=== PATIENT | male | born 1955 | race Caucasian/White ===

== ENCOUNTER 2021-02-03 10:54 | Inpatient (IN) ==
--- NOTE | 2021-02-03 11:26 | Emergency Department Note ---
Impression & Plan GIB (gastrointestinal bleeding), Symptomatic anemia, DVT (deep venous thrombosis), MATIAS (dyspnea on exertion) ED Provider Note NAME: HARLEY GIFFORD AGE: 65 SEX: M : 1955 ARRIVES VIA: Walk-In INFORMANT: Patient, ED PROVIDER(S): Chintan Marrero MD Chief Complaint: Shortness of breath, right lower extremity swelling HPI: Patient states he has had the above symptoms ongoing since the beginning of January around the same time that he had traveled via plane to [place]. The patient states that his shortness of breath is exertional in nature and gotten progressively worse. Patient denies any known heart or lung history. The patient denies any chest pains. The patient was thought to have a presumptive muscle strain and started on naproxen. This has not really abated his symptoms. The patient denies any orthopnea. Patient denies any fevers or chills. He is vaccinated for Covid. The patient has had a slight productive cough but it is clear in nature. No history of smoking. ROS: See HPI for pertinent positives and negatives. A total of 10 systems were reviewed and otherwise negative. Past medical history: See below Surgical history: See below Social history: See below Physical Exam: GENERAL: Wearing glasses and a mask. NAD, non-toxic. EYE EXAM: Normal conjunctiva. PERRL, no anisocoria and EOM's grossly intact w/o pain. NECK: Supple, no nuchal rigidity, no adenopathy, non-tender. No signs of meningismus. LUNGS: Clear to auscultation. Normal chest wall mechanics. HEART: NSR, no MRG. ABDOMEN: Abdomen soft, non-tender, normo-active bowel sounds, no masses, no rebound or guarding. BACK: No CVA TTP. SKIN: No rashes and no bruising. UPPER EXTREMITIES: Upper extremities are grossly normal. LOWER EXTREMITIES: Grossly normal, no obvious asymmetry or edema, no erythema, negative Homans' sign bilaterally. NEURO EXAM: A&O x3, cranial nerves II-XII grossly intact, normal speech, moves all 4 extremities on command w/o issue. Differential diagnoses: Reactive airway disease, pneumonia, pneumothorax, COPD, CHF, infections, cardiac ischemia, pulmonary embolism, musculoskeletal, gastrointestinal, as well as other pathologies. Course: Patient was seen and evaluated the bedside. Full history physical exam was performed. EKG interpreted by me Normal sinus rhythm, rate of 77, wide QRS, right bundle branch block pattern. No prior EKGs for comparison. Imaging Studies: See below Cardiac monitoring: An order was placed for continuous cardiac monitoring. The monitor shows a rate of 74 with sinus rhythm. MDM: Patient does present with concern for shortness of breath. Blood work is obtained along with a an ultrasound of the right lower extremity associated CT angiography of the chest. Patient was noted to have a low hemoglobin which is likely the cause of the patient's shortness of breath. DVT ultrasound was positive. I did speak with Dr. Palm with hematology who stated that clear the patient does need transfused and that a filter is an option but would consider how the patient's anemia improved after transfusion along with GI consultation given the patient's likely upper GI bleed potentially associated to naproxen use. Patient had denied any dark tarry stools or bright red blood per rectum. Patient denies any abdominal pain. Patient CT angiography was negative for PE but the patient does have pulmonary nodules. Patient is a non-smoker. Dr. Palm had suggested that if the patient does require more than 2 units PRBCs to ensure that FFP be given as well. I did speak with the on-call hospitalist and a striking gas and the patient was admitted to the [facility] service by Dr. Martinez. Patient also had already been started on PPI bolus and drip at the time that the patient had been noted to be anemic. The patient has also been consented for blood. Critical Care: I have personally spent 77 minutes of critical care time in direct management of this patient. This includes bedside care, interpretation of diagnostic studies, and testing, discussion with consultants, patient, and family members, and other require inpatient management activities. This 77 minutes is in excess of all separately billable procedures. Past Med/Surg History Medical History GERD (gastroesophageal reflux disease) HLD (hyperlipidemia) Surgical History H/O hemorrhoidectomy History of colonoscopy History of esophagogastroduodenoscopy (EGD) History of inguinal hernia repair Family History (Updated 02/03/21 @ 15:44 by Veronique Gibbs PA-C) Father Coronary heart disease Social History (Updated 02/03/21 @ 15:44 by Veronique Gibbs PA-C) Smoking Status: Never smoker Second Hand Exposure: No; Do You Dip or Chew Tobacco: No; Tobacco Cessation Education Requested by Patient: No Hx Alcohol Use: Yes Alcohol type: beer Alcohol Intake Frequency: 2-4 x/Month Hx Substance Use: No Preferred Language: Hong Konger Communication Ability: Effective Egg Packer Required: No Beliefs That Will Affect Care: None Current Living Situation: Spouse Other Information That Helps Us Care for You: No Feels Safe at Home: Yes Safety Concerns: Feels Safe At This Time Assistive Devices: Glasses Allergies Allergies Allergy/AdvReac Type Severity Reaction Status Date / Time No Known Drug Allergies Allergy Unknown NKDA Verified 02/03/21 13:37 Home Meds Home Medications Medication Instructions Recorded Confirmed naproxen 500 mg PO BID 02/03/21 02/03/21 rosuvastatin 5 mg PO QPM 02/03/21 02/03/21 Results & Data (ED) Vital Signs Vital Signs - 24 hr 02/03/21 11:07 02/03/21 11:35 02/03/21 11:41 Temperature 36.8 C Temperature Source Temporal Artery Scan Pulse Rate 86 73 77 Pulse Rate [Right Finger] Pulse Rate from SpO2 Sensor 77 Pulse Rhythm Regular Respiratory Rate 18 20 17 Respiratory Effort / Characteristics Short of Breath Blood Pressure 131/74 114/75 Blood Pressure [Right Arm] Blood Pressure Mean 93 88 Blood Pressure Mean [Right Arm] Blood Pressure Position Sitting Pulse Oximetry 100 99 99 Oxygen Delivery Method Room Air Room Air Sepsis Recent Fever Within 48 Hours No Sepsis New/Unexplained Change in Mental Status N/A Sepsis Action Taken by Nursing No Action Required 02/03/21 11:44 02/03/21 11:50 02/03/21 12:00 Temperature Temperature Source Pulse Rate 73 72 Pulse Rate [Right Finger] Pulse Rate from SpO2 Sensor 73 Pulse Rhythm Respiratory Rate 18 Respiratory Effort / Characteristics Spontaneous Blood Pressure Blood Pressure [Right Arm] Blood Pressure Mean Blood Pressure Mean [Right Arm] Blood Pressure Position Pulse Oximetry 99 100 Oxygen Delivery Method Room Air Sepsis Recent Fever Within 48 Hours Sepsis New/Unexplained Change in Mental Status Sepsis Action Taken by Nursing 02/03/21 12:51 02/03/21 13:00 02/03/21 13:01 Temperature Temperature Source Pulse Rate 77 76 78 Pulse Rate [Right Finger] Pulse Rate from SpO2 Sensor 78 80 77 Pulse Rhythm Respiratory Rate 17 22 20 Respiratory Effort / Characteristics Blood Pressure 120/85 Blood Pressure [Right Arm] Blood Pressure Mean 96 Blood Pressure Mean [Right Arm] Blood Pressure Position Pulse Oximetry 100 99 99 Oxygen Delivery Method Sepsis Recent Fever Within 48 Hours Sepsis New/Unexplained Change in Mental Status Sepsis Action Taken by Nursing 02/03/21 13:32 02/03/21 13:45 02/03/21 13:46 Temperature Temperature Source Pulse Rate 76 77 Pulse Rate [Right Finger] Pulse Rate from SpO2 Sensor 78 77 78 Pulse Rhythm Respiratory Rate 21 18 Respiratory Effort / Characteristics Blood Pressure 118/71 Blood Pressure [Right Arm] Blood Pressure Mean 86 Blood Pressure Mean [Right Arm] Blood Pressure Position Pulse Oximetry 99 100 99 Oxygen Delivery Method Sepsis Recent Fever Within 48 Hours Sepsis New/Unexplained Change in Mental Status Sepsis Action Taken by Nursing 02/03/21 13:50 02/03/21 13:55 02/03/21 14:00 Temperature Temperature Source Pulse Rate 74 83 77 Pulse Rate [Right Finger] Pulse Rate from SpO2 Sensor 77 81 75 Pulse Rhythm Respiratory Rate 14 16 21 Respiratory Effort / Characteristics Blood Pressure 126/71 Blood Pressure [Right Arm] Blood Pressure Mean 89 Blood Pressure Mean [Right Arm] Blood Pressure Position Pulse Oximetry 100 100 99 Oxygen Delivery Method Sepsis Recent Fever Within 48 Hours Sepsis New/Unexplained Change in Mental Status Sepsis Action Taken by Nursing 02/03/21 14:01 02/03/21 14:05 02/03/21 14:10 Temperature Temperature Source Pulse Rate 75 79 81 Pulse Rate [Right Finger] Pulse Rate from SpO2 Sensor 75 80 79 Pulse Rhythm Respiratory Rate 20 20 19 Respiratory Effort / Characteristics Blood Pressure Blood Pressure [Right Arm] Blood Pressure Mean Blood Pressure Mean [Right Arm] Blood Pressure Position Pulse Oximetry 100 100 100 Oxygen Delivery Method Sepsis Recent Fever Within 48 Hours Sepsis New/Unexplained Change in Mental Status Sepsis Action Taken by Nursing 02/03/21 14:15 02/03/21 14:20 02/03/21 14:21 Temperature Temperature Source Pulse Rate 75 78 77 Pulse Rate [Right Finger] Pulse Rate from SpO2 Sensor 76 77 78 Pulse Rhythm Respiratory Rate 19 21 18 Respiratory Effort / Characteristics Blood Pressure 131/79 Blood Pressure [Right Arm] Blood Pressure Mean 96 Blood Pressure Mean [Right Arm] Blood Pressure Position Pulse Oximetry 100 99 99 Oxygen Delivery Method Sepsis Recent Fever Within 48 Hours Sepsis New/Unexplained Change in Mental Status Sepsis Action Taken by Nursing 02/03/21 14:24 02/03/21 14:25 02/03/21 14:30 Temperature 36.7 C Temperature Source Oral Pulse Rate 75 76 75 Pulse Rate [Right Finger] Pulse Rate from SpO2 Sensor 78 77 Pulse Rhythm Respiratory Rate 16 20 16 Respiratory Effort / Characteristics Blood Pressure 131/79 118/74 Blood Pressure [Right Arm] Blood Pressure Mean 96 88 Blood Pressure Mean [Right Arm] Blood Pressure Position Pulse Oximetry 99 99 99 Oxygen Delivery Method Sepsis Recent Fever Within 48 Hours Sepsis New/Unexplained Change in Mental Status Sepsis Action Taken by Nursing 02/03/21 14:31 02/03/21 14:35 02/03/21 14:39 Temperature 36.7 C Temperature Source Oral Pulse Rate 77 76 Pulse Rate [Right Finger] 82 Pulse Rate from SpO2 Sensor 76 77 Pulse Rhythm Respiratory Rate 16 14 16 Respiratory Effort / Characteristics Blood Pressure 125/77 Blood Pressure [Right Arm] 133/80 Blood Pressure Mean 93 Blood Pressure Mean [Right Arm] 97 Blood Pressure Position Pulse Oximetry 99 98 99 Oxygen Delivery Method Room Air Sepsis Recent Fever Within 48 Hours Sepsis New/Unexplained Change in Mental Status Sepsis Action Taken by Nursing 02/03/21 14:40 Temperature Temperature Source Pulse Rate 78 Pulse Rate [Right Finger] Pulse Rate from SpO2 Sensor 79 Pulse Rhythm Respiratory Rate 18 Respiratory Effort / Characteristics Blood Pressure 133/80 Blood Pressure [Right Arm] Blood Pressure Mean 97 Blood Pressure Mean [Right Arm] Blood Pressure Position Pulse Oximetry 99 Oxygen Delivery Method Sepsis Recent Fever Within 48 Hours Sepsis New/Unexplained Change in Mental Status Sepsis Action Taken by Half-Way Medications Current Medication List: was personally reviewed by me Laboratory Data Attestation: I reviewed the patient's lab results. Result diagrams: 02/03/21 11:42 02/03/21 11:42 Lab Results 02/03/21 02/03/21 02/03/21 Range/Units 11:42 11:42 11:42 WBC 5.94 (4.8-10.8) K/uL RBC 2.55 L (4.7-6.1) M/uL Hgb 5.5 L* (14.0-18.0) g/dL Hct 18.7 L* (42-52) % MCV 73.3 L (80-100) fL MCH 21.6 L (25-34) pg MCHC 29.4 L (32-36) g/dL RDW Std Deviation 40.2 (36.4-46.3) fL RDW Coeff of Branden 14.8 H (11.5-14.5) % Plt Count 496 H (130-400) K/uL MPV 8.9 (7.4-10.4) fL Immature Gran % (Auto) 0.2 % Neut % (Auto) 63.6 % Lymph % (Auto) 24.9 % [place] % (Auto) 8.8 % Eos % (Auto) 2.0 % Baso % (Auto) 0.5 % Neut # (Auto) 3.78 (1.4-6.5) K/uL Lymph # (Auto) 1.48 (1.2-3.4) K/uL [place] # (Auto) 0.52 (0.11-0.59) K/uL Eos # (Auto) 0.12 (0-0.5) K/uL Baso # (Auto) 0.03 (0-0.2) K/uL Immature Gran # (Auto) 0.01 (0.00-0.02) K/uL Hypochromasia Present Microcytosis Present Ovalocytes 1+ PT 10.3 (9.0-12.0) Seconds INR 1.0 (0.9-1.1) APTT < 20.0 L (21.0-31.0) Seconds PTT Ratio 0.8 Sodium 144 (136-145) mmol/L Potassium 4.4 (3.5-5.1) mmol/L Chloride 116 H (98-107) mmol/L Carbon Dioxide 23 (21-32) mmol/L Anion Gap 5.0 (3-11) BUN 13 (7-18) mg/dl Creatinine 0.91 (0.6-1.4) mg/dl Est Cr Clr Drug Dosing 80.4 ml/min Est GFR ( Amer) 102.1 ml/min Est GFR (Non-Af Amer) 88.1 ml/min BUN/Creatinine Ratio 14.0 (10-20) Glucose 97 (70-99) mg/dl Calcium 8.7 (8.5-10.1) mg/dl Total Bilirubin 0.5 (0.2-1) mg/dl AST 11 L (15-37) U/L ALT 19 (12-78) U/L Alkaline Phosphatase 57 (45-117) U/L Troponin I < 0.015 (0-0.045) ng/ml NT-Pro-B Natriuret Pep 53 (0-900) pg/ml Total Protein 6.8 (6.4-8.2) gm/dl Albumin 3.7 (3.4-5.0) gm/dl Globulin 3.1 (2.5-4.0) gm/dl Albumin/Globulin Ratio 1.2 (0.9-2) COVID-19 Eval Order SARS-CoV-2 (PCR) (Negative) Blood Type Blood Type Recheck Antibody Screen Crossmatch 02/03/21 02/03/21 02/03/21 Range/Units 12:54 12:57 13:00 WBC (4.8-10.8) K/uL RBC (4.7-6.1) M/uL Hgb (14.0-18.0) g/dL Hct (42-52) % MCV (80-100) fL MCH (25-34) pg MCHC (32-36) g/dL RDW Std Deviation (36.4-46.3) fL RDW Coeff of Branden (11.5-14.5) % Plt Count (130-400) K/uL MPV (7.4-10.4) fL Immature Gran % (Auto) % Neut % (Auto) % Lymph % (Auto) % [place] % (Auto) % Eos % (Auto) % Baso % (Auto) % Neut # (Auto) (1.4-6.5) K/uL Lymph # (Auto) (1.2-3.4) K/uL [place] # (Auto) (0.11-0.59) K/uL Eos # (Auto) (0-0.5) K/uL Baso # (Auto) (0-0.2) K/uL Immature Gran # (Auto) (0.00-0.02) K/uL Hypochromasia Microcytosis Ovalocytes PT (9.0-12.0) Seconds INR (0.9-1.1) APTT (21.0-31.0) Seconds PTT Ratio Sodium (136-145) mmol/L Potassium (3.5-5.1) mmol/L Chloride (98-107) mmol/L Carbon Dioxide (21-32) mmol/L Anion Gap (3-11) BUN (7-18) mg/dl Creatinine (0.6-1.4) mg/dl Est Cr Clr Drug Dosing ml/min Est GFR ( Amer) ml/min Est GFR (Non-Af Amer) ml/min BUN/Creatinine Ratio (10-20) Glucose (70-99) mg/dl Calcium (8.5-10.1) mg/dl Total Bilirubin (0.2-1) mg/dl AST (15-37) U/L ALT (12-78) U/L Alkaline Phosphatase (45-117) U/L Troponin I (0-0.045) ng/ml NT-Pro-B Natriuret Pep (0-900) pg/ml Total Protein (6.4-8.2) gm/dl Albumin (3.4-5.0) gm/dl Globulin (2.5-4.0) gm/dl Albumin/Globulin Ratio (0.9-2) COVID-19 Eval Order Covid19 at [facility] SARS-CoV-2 (PCR) (Negative) Blood Type A Positive Blood Type Recheck A Positive Antibody Screen NEGATIVE Crossmatch See Detail 02/03/21 Range/Units 13:00 WBC (4.8-10.8) K/uL RBC (4.7-6.1) M/uL Hgb (14.0-18.0) g/dL Hct (42-52) % MCV (80-100) fL MCH (25-34) pg MCHC (32-36) g/dL RDW Std Deviation (36.4-46.3) fL RDW Coeff of Branden (11.5-14.5) % Plt Count (130-400) K/uL MPV (7.4-10.4) fL Immature Gran % (Auto) % Neut % (Auto) % Lymph % (Auto) % [place] % (Auto) % Eos % (Auto) % Baso % (Auto) % Neut # (Auto) (1.4-6.5) K/uL Lymph # (Auto) (1.2-3.4) K/uL [place] # (Auto) (0.11-0.59) K/uL Eos # (Auto) (0-0.5) K/uL Baso # (Auto) (0-0.2) K/uL Immature Gran # (Auto) (0.00-0.02) K/uL Hypochromasia Microcytosis Ovalocytes PT (9.0-12.0) Seconds INR (0.9-1.1) APTT (21.0-31.0) Seconds PTT Ratio Sodium (136-145) mmol/L Potassium (3.5-5.1) mmol/L Chloride (98-107) mmol/L Carbon Dioxide (21-32) mmol/L Anion Gap (3-11) BUN (7-18) mg/dl Creatinine (0.6-1.4) mg/dl Est Cr Clr Drug Dosing ml/min Est GFR ( Amer) ml/min Est GFR (Non-Af Amer) ml/min BUN/Creatinine Ratio (10-20) Glucose (70-99) mg/dl Calcium (8.5-10.1) mg/dl Total Bilirubin (0.2-1) mg/dl AST (15-37) U/L ALT (12-78) U/L Alkaline Phosphatase (45-117) U/L Troponin I (0-0.045) ng/ml NT-Pro-B Natriuret Pep (0-900) pg/ml Total Protein (6.4-8.2) gm/dl Albumin (3.4-5.0) gm/dl Globulin (2.5-4.0) gm/dl Albumin/Globulin Ratio (0.9-2) COVID-19 Eval Order SARS-CoV-2 (PCR) NEGATIVE (Negative) Blood Type Blood Type Recheck Antibody Screen Crossmatch Administered Medications Pantoprazole Sodium 40 mg/ (Dextrose) 100 mls @ 20 mls/hr IV Q5H JIMMIE Stop: 03/05/21 12:26 Last Admin: 02/03/21 14:15 Dose: 8 mg/hr, 20 mls/hr Documented by: [id number] Discontinued Medications Pantoprazole Sodium (Protonix Bolus/Drip) 0 mls @ 1 mls/hr IV ONE STA Stop: 02/03/21 12:13 Last Infusion: 02/03/21 13:20 Dose: 0 mls/hr Documented by: [id number] Admin: 02/03/21 13:08 Dose: 1 mls/hr Documented by: [id number] Pantoprazole Sodium 80 mg/ (Dextrose) 120 mls @ 400 mls/hr IV NOW ONE Stop: 02/03/21 12:29 Last Infusion: 02/03/21 13:48 Dose: 0 mls/hr Documented by: [id number] Admin: 02/03/21 13:07 Dose: 400 mls/hr Documented by: [id number] Ioversol (Optiray 350 500ml) 110 ml IV ONCE ONE Stop: 02/03/21 13:32 Last Admin: 02/03/21 13:33 Dose: 110 ml Documented by: [id number] Imaging Data Radiologist's Impression: Chest CTA 02/03/21 11:38 CT ANGIOGRAM OF THE CHEST CLINICAL HISTORY: Dyspnea COMPARISON STUDY: No previous studies for comparison. TECHNIQUE: Following the IV administration of mL of Optiray, CT angiogram of the thorax was performed from the thoracic inlet to the lung bases utilizing the pulmonary embolus protocol. Images are reviewed in the axial, sagittal, and coronal planes. IV contrast was administered without complication. MIP imaging was performed. A dose lowering technique was utilized adhering to the principles of ALARA. CT DOSE: 496.73 mGy.cm FINDINGS: There is adequate opacification within main pulmonary artery. No pulmonary embolus is seen. Main pulmonary artery is normal in caliber. No right heart strain demonstrated. Heart is normal in size without evidence of pericardial effusion. No significant coronary calcifications are seen. There is no axillary, supra clavicle or internal mammary lymphadenopathy seen. Mediastinal lymph nodes are not enlarged. Visualized portion of thyroid gland shows no evidence of focal lesions. Large hiatal hernia is seen containing stomach which appear folded. Tracheobronchial tree is patent. Evaluation of pulmonary parenchyma is slightly limited due to respiratory motion artifact. No large infiltrates or consolidative lesions are seen. Small compressive atelectasis is seen within left lower lobe due to mass effect from large hiatal hernia. No pleural effusion is seen. -5 mm pulmonary nodule is seen within right upper lobe (series 4 image 230) -6 mm pulmonary nodule is seen within right middle lobe (series 4 image 113) Limited evaluation of upper abdominal viscera shows no evidence of acute abnormalities. Evaluation of osseous structures shows degenerative changes of the spine. IMPRESSION: 1. No acute pulmonary embolus. 2. Large hiatal hernia. 3. No infiltrates or consolidative lesions. 4. Few pulmonary nodules, largest is measuring 6 mm in size. Short-term follow- up in 3-6 months is recommended per Fleischner Society guidelines. Please refer to below summary of Fleischner criteria recommendations for follow- up of incidental CT nodules (Leigh Hannon, Guidelines for management of small pulmonary nodules detected on CT scans: A statement from the Fleischner Society, Radiology 237: [phone].) SOLID NODULES Solitary nodule size: <6 mm * low risk patients: no follow-up needed * high risk patients: optional CT at 12 months Solitary nodule size: 6-8 mm * low risk patients: follow-up at 6-12 months, then consider further follow-up at 18-24 months * high risk patients: initial follow-up CT at 6-12 months and then at 18-24 months if no change Solitary nodule size: >8 mm * either low or high risk patients - consider follow-up CT at 3 months, and/or CT-PET, and/or biopsy Multiple nodules size: <6 mm * low risk patients: no routine follow-up * high risk patients: optional CT at 12 months Multiple nodules size: 6-8 mm * low risk patients: follow-up at 3-6 months, then consider further follow-up at 18-24 months * high risk patients: follow-up at 3-6 months, then at 18-24 months if no change Multiple nodules size: >8 mm * low risk patients: follow-up at 3-6 months, then consider further follow-up at 18-24 months * high risk patients: follow-up at 3-6 months, then at 18-24 months if no change Note: newly detected indeterminate nodule in persons 35 years of age or older. * low risk patients: minimal or absent history of smoking and/or other known risk factors * high risk patients: history of smoking or of other known risk factors (e.g. first degree relative with lung cancer, or exposure to asbestos, radon, uranium) * if a nodule up to 8 mm is partly solid or is ground glass further follow-up is required after 24 months to exclude possible slow growing adenocarcinoma (TONY) SUBSOLID NODULES Solitary pure ground-glass nodule * nodule size <6 mm - no CT follow-up required * nodule size >=6 mm - follow-up CT at 6-12 months, then every 2 years until 5 years Solitary part-solid nodule * nodule size <6 mm - no CT follow-up required * nodule size >=6 mm - follow-up CT at 3-6 months. If unchanged, and solid component remains <6 mm, then annual follow-up for 5 years Multiple subsolid nodules * nodule size <6 mm - follow-up CT at 3-6 months, consider further follow-up at 2 and 4 years if stable * nodule size >=6 mm - follow-up CT at 3-6 months, subsequent management based on the most suspicious nodule(s) ACT 112: Negative or not required by law. The above report was generated using voice recognition software. It may contain grammatical, syntax or spelling errors. Electronically signed by: Nanette Sepulveda DO 02/03/2021 1:55 PM Venous Doppler Study 02/03/21 11:38 US venous doppler LE RT CLINICAL HISTORY: Dyspnea COMPARISON STUDY: No previous studies for comparison. FINDINGS: Real-time and color flow Doppler imaging were performed. Flow was seen within the femoral and popliteal veins with no intraluminal thrombus demonstrated. The saphenous vein is patent. Noncompressible right posterior tibialis vein is seen without evidence of blood flow representing thrombosis. The right peroneal and anterior tibialis veins are patent. IMPRESSION: Deep venous thrombosis involving right posterior tibialis vein. ACT 112: Negative or not required by law. The above report was generated using voice recognition software. It may contain grammatical, syntax or spelling errors. Electronically signed by: Nanette Sepulveda DO 02/03/2021 12:36 PM Discharge Plan Visit Data Chief Complaint: Shortness of Breath/Dyspnea Stated Complaint: SOB,RT LEG SWELLING ED Provider: Chintan Marrero Discharge Problem: GIB (gastrointestinal bleeding), Symptomatic anemia, DVT (deep venous thrombosis), MATIAS (dyspnea on exertion) Discharge Instructions Interventions: ED Discharge Assessment Last Done: 02/03/21 15:25 Discharge Problem: GIB (gastrointestinal bleeding) Qualifiers: GI bleed type/associated pathology: unspecified gastrointestinal hemorrhage type Qualified Code(s): K92.2 - Gastrointestinal hemorrhage, unspecified DVT (deep venous thrombosis) Qualifiers: DVT location: lower extremity Affected thrombotic vein of extremity: tibial Chronicity: acute Laterality: right Qualified Code(s): I82.441 - Acute embolism and thrombosis of right tibial vein
[2021-02-03 12:03] LABS: Hematocrit (blood only) 18.7 % (42-52); Hemoglobin 5.5 g/dL (14.0-18.0); Mean Corpuscular Hemoglobin 21.6 pg (25-34); Mean Corpuscular Hgb Conc 29.4 g/dL (32-36); Mean Corpuscular Volume 73.3 fL (80-100); Mean Platelet Volume 8.9 fL (7.4-10.4); Platelet Count 496 K/uL (130-400); RDW Coefficient of Variation 14.8 % (11.5-14.5); RDW Standard Deviation 40.2 fL (36.4-46.3); Red Blood Count 2.55 M/uL (4.7-6.1); White Blood Count 5.94 K/uL (4.8-10.8)
[2021-02-03 12:06] LABS: Partial Thromboplastin Ratio 0.8; Prothrombin Time 10.3 Seconds (9.0-12.0)
[2021-02-03] MEDS ORDERED: SODIUM CHLORIDE 0.9% 250 ML IV PRN (12:11)
[2021-02-03] MEDS ORDERED: PANTOprazole 80 MG in DEXTROSE 5% 100 ML IV ONE (12:12)
[2021-02-03] MEDS ORDERED: PANTOPRAZOLE BOLUS/DRIP 1 EA IV STA (12:12)
[2021-02-03 12:15] LABS: Alanine Aminotransferase 19 U/L (12-78); Albumin Level 3.7 gm/dl (3.4-5.0); Aspartate Aminotransferase 11 U/L (15-37); Blood Urea Nitrogen 13 mg/dl (7-18); Calcium 8.7 mg/dl (8.5-10.1); Carbon Dioxide 23 mmol/L (21-32); Chloride 116 mmol/L (98-107); Creatinine Clr Calc Pharmacy 80.4 ml/min; Est GFR (African American) 102.1 ml/min; Est GFR (Non-African American) 88.1 ml/min; Glucose 97 mg/dl (70-99); Potassium 4.4 mmol/L (3.5-5.1); Sodium 144 mmol/L (136-145)
[2021-02-03 12:19] LABS: Partial Thromboplastin Time < 20.0 Seconds (21.0-31.0)
[2021-02-03 12:20] LABS: Albumin Globulin Ratio 1.2 (0.9-2); Alkaline Phosphatase 57 U/L (45-117); Bilirubin,Total 0.5 mg/dl (0.2-1); Globulin 3.1 gm/dl (2.5-4.0); NT Pro B Type Natriuretic Pept 53 pg/ml (0-900); Total Protein 6.8 gm/dl (6.4-8.2); Troponin I < 0.015 ng/ml (0-0.045)
[2021-02-03 12:27] LABS: Basophils # (auto) 0.03 K/uL (0-0.2); Basophils % (auto) 0.5 %; Eosinophils # (auto) 0.12 K/uL (0-0.5); Hypochromasia Present; Immature Granulocytes # (auto) 0.01 K/uL (0.00-0.02); Immature Granulocytes % (auto) 0.2 %; Lymphocytes # (auto) 1.48 K/uL (1.2-3.4); Lymphocytes % (auto) 24.9 %; Microcytosis Present; Monocytes # (auto) 0.52 K/uL (0.11-0.59); Monocytes % (auto) 8.8 %; Neutrophils # (auto) 3.78 K/uL (1.4-6.5); Neutrophils % (auto) 63.6 %; Ovalocytes 1+
--- NOTE | 2021-02-03 12:38 | Ultrasound Report ---
US venous doppler LE RT CLINICAL HISTORY: Dyspnea COMPARISON STUDY: No previous studies for comparison. FINDINGS: Real-time and color flow Doppler imaging were performed. Flow was seen within the femoral a nd popliteal veins with no intraluminal thrombus demonstrated. The saphenous vein is patent. Noncompressible right posterior tibialis vein is seen without evidence of blood flow representing thr ombosis. The right peroneal and anterior tibialis veins are patent. IMPRESSION: Deep venous thrombosis involving right posterior tibialis vein. ACT 112: Negative or not required by law. The above report was generated using voice recognition software. It may contain grammatical, syntax o r spelling errors. Electronically signed by: Nanette Sepulveda DO 02/03/2021 12:36 PM
[2021-02-03] MEDS ORDERED: OPTIRAY 350 500ml IV ONE (13:31)
--- NOTE | 2021-02-03 13:56 | CT Scan Report ---
CT ANGIOGRAM OF THE CHEST CLINICAL HISTORY: Dyspnea COMPARISON STUDY: No previous studies for comparison. TECHNIQUE: Following the IV administration of mL of Optiray, CT angiogram of the thorax was performed from the thoracic inlet to the lung bases utilizing the pulmonary embolus protocol. Images are revie wed in the axial, sagittal, and coronal planes. IV contrast was administered without complication. [place] P imaging was performed. A dose lowering technique was utilized adhering to the principles of ALARA. CT DOSE: 496.73 mGy.cm FINDINGS: There is adequate opacification within main pulmonary artery. No pulmonary embolus is seen. Main pulmonary artery is normal in caliber. No right heart strain demonstrated. Heart is normal in size without evidence of pericardial effusion. No significant coronary calcificati ons are seen. There is no axillary, supra clavicle or internal mammary lymphadenopathy seen. Mediastinal lymph node s are not enlarged. Visualized portion of thyroid gland shows no evidence of focal lesions. Large hiatal hernia is seen containing stomach which appear folded. Tracheobronchial tree is patent. Evaluation of pulmonary parenchyma is slightly limited due to respir atory motion artifact. No large infiltrates or consolidative lesions are seen. Small compressive atelectasis is seen within left lower lobe due to mass effect from large hiatal her mariano. No pleural effusion is seen. -5 mm pulmonary nodule is seen within right upper lobe (series 4 image 230) -6 mm pulmonary nodule is seen within right middle lobe (series 4 image 113) Limited evaluation of upper abdominal viscera shows no evidence of acute abnormalities. Evaluation of osseous structures shows degenerative changes of the spine. IMPRESSION: 1. No acute pulmonary embolus. 2. Large hiatal hernia. 3. No infiltrates or consolidative lesions. 4. Few pulmonary nodules, largest is measuring 6 mm in size. Short-term follow-up in 3-6 months is r ecommended per Fleischner Society guidelines. Please refer to below summary of Fleischner criteria recommendations for follow-up of incidental CT n odules (Leigh Hannon, Guidelines for management of small pulmonary nodules detected on CT scans: A sta tement from the Fleischner Society, Radiology 237: [id number].) SOLID NODULES Solitary nodule size: <6 mm * low risk patients: no follow-up needed * high risk patients: optional CT at 12 months Solitary nodule size: 6-8 mm * low risk patients: follow-up at 6-12 months, then consider further follow-up at 18-24 months * high risk patients: initial follow-up CT at 6-12 months and then at 18-24 months if no change Solitary nodule size: >8 mm * either low or high risk patients - consider follow-up CT at 3 months, and/or CT-PET, and/or biopsy Multiple nodules size: <6 mm * low risk patients: no routine follow-up * high risk patients: optional CT at 12 months Multiple nodules size: 6-8 mm * low risk patients: follow-up at 3-6 months, then consider further follow-up at 18-24 months * high risk patients: follow-up at 3-6 months, then at 18-24 months if no change Multiple nodules size: >8 mm * low risk patients: follow-up at 3-6 months, then consider further follow-up at 18-24 months * high risk patients: follow-up at 3-6 months, then at 18-24 months if no change Note: newly detected indeterminate nodule in persons 35 years of age or older. * low risk patients: minimal or absent history of smoking and/or other known risk factors * high risk patients: history of smoking or of other known risk factors (e.g. first degree relative with lung cancer, or exposure to asbestos, radon, uranium) * if a nodule up to 8 mm is partly solid or is ground glass further follow-up is required after 24 m onths to exclude possible slow growing adenocarcinoma (TONY) SUBSOLID NODULES Solitary pure ground-glass nodule * nodule size <6 mm - no CT follow-up required * nodule size >=6 mm - follow-up CT at 6-12 months, then every 2 years until 5 years Solitary part-solid nodule * nodule size <6 mm - no CT follow-up required * nodule size >=6 mm - follow-up CT at 3-6 months. If unchanged, and solid component remains <6 mm, then annual follow-up for 5 years Multiple subsolid nodules * nodule size <6 mm - follow-up CT at 3-6 months, consider further follow-up at 2 and 4 years if sta ble * nodule size >=6 mm - follow-up CT at 3-6 months, subsequent management based on the most suspiciou s nodule(s) ACT 112: Negative or not required by law. The above report was generated using voice recognition software. It may contain grammatical, syntax o r spelling errors. Electronically signed by: Nanette Sepulveda DO 02/03/2021 1:55 PM
[2021-02-03] MEDS: PANTOprazole 40 MG in DEXTROSE 5% 100 ML IV SCH ×3 (14:15→23:29)
--- NOTE | 2021-02-03 14:49 | Gastrointestinal Consultation ---
Date of Consultation February 03, 2021 Assessment & Plan (1) Anemia: Pt is a 65 y/o male presented w SOB, R knee + ankle pain & swelling since flight from [place] trip. Found to have severe anemia and RLE DVT. He had been taking Aleve for RLE pain. No orestes GI bleeding (hematemesis, melena, r ectal bleeding). Hx of colon polyps, normal colonoscopy in 2018. Last EGD in 2009 showed hiatal hernia. - PPI bolus and gtt - PRBC transfusion, monitor blood ct closely - Anemia workup (Vit B12, FA, iron profile, hemolytic process) - Plan for outpt EGD/Colonoscopy eval to r/o GI source of blood loss for cause of anemia. However if develops GI s/s of GI bleeding over weekend would likely need inpt endoscopic workup Supervising Physician Co-Signing Physician Notes I performed a history and physical examination of the patient today, including specifically on physical exam - soft abdomen. I have discussed the patient's management with the advanced practitioner. Please refer to the nurse practitioner's note for the documented findings and plan of care. Recent travel with acute DVT causing leg pain for which he took many NSAIDs and now has anemia but no overt ongoing GI, stool is brown. Recommend: PO PPI BID. EGD/Colonoscopy as OP next week. Can start AC from GI standpoint if needed. Recall GI if needed. History of Present Illness Reason for Consultation: Anemia Requesting Physician: Dr. Rosemary Martinez Attending Physician: Dr. Michael De La Fuente History of Present Illness Pt is a 65 y/o male who presented to ED w c/o progressive SOB in last 2.5 weeks. He also had been having issues of R knee pain, R ankle swelling after flight to [place], taking Aleve 1000mg daily x 19 days + Ibuprofen once. He denies dizziness, light headedness, CP, abd pain, n/v. Last BM was this AM , brown st ools. No rectal bleeding. Upon evaluation, he was noted to be anemia w H/H of 518. Plt 400s. BUN/Cr normal. CTA chest showed large hiatal hernia. Venous Doppler showed RLE DVT. He denies being on anticoagulant, ASA. Denies hx of GI surgeries, or family hx of GI malignancies. Last EGD 2009 - hiatal hernia. Hx of colon polyps, last colonoscopy 2018 normal. Allergies Allergy/AdvReac Type Severity Reaction Status Date / Time No Known Drug Allergies Allergy Unknown NKDA Verified 02/03/21 13:37 Home Medications Medication Instructions Recorded Confirmed Type naproxen 500 mg PO BID 02/03/21 02/03/21 History rosuvastatin 5 mg PO QPM 02/03/21 02/03/21 History Patient History Medical History GERD (gastroesophageal reflux disease) HLD (hyperlipidemia) Surgical History H/O hemorrhoidectomy History of colonoscopy History of esophagogastroduodenoscopy (EGD) History of inguinal hernia repair Family History (Updated 02/03/21 @ 15:44 by Veronique Gibbs PA-C) Father Coronary heart disease Social History (Updated 02/03/21 @ 15:44 by Veronique Gibbs PA-C) Smoking Status: Never smoker Second Hand Exposure: No; Do You Dip or Chew Tobacco: No; Tobacco Cessation Education Requested by Patient: No Hx Alcohol Use: Yes Alcohol type: beer Alcohol Intake Frequency: 2-4 x/Month Hx Substance Use: No Preferred Language: Nicaraguan Communication Ability: Effective Business Data Analyst Required: No Beliefs That Will Affect Care: None Current Living Situation: Spouse Other Information That Helps Us Care for You: No Feels Safe at Home: Yes Safety Concerns: Feels Safe At This Time Assistive Devices: Glasses Review of Systems Review of Systems: All systems reviewed & are unremarkable except as noted in HPI & below Physical Exam Constitutional: WD/WN, vitals as above well groomed, cooperative and comfortable Eyes: PERRL, conjunctivae normal, anicteric sclerae ENMT: external ear and nose normal, oropharynx normal Respiratory: normal respiratory effort, lungs clear to auscultation Cardiovascular: RRR, no murmur, no edema Gastrointestinal (Abdomen): normal bowel sounds, soft, nontender, no hepatosplenomegaly Musculoskeletal: R ankle swelling. Skin: no rashes, warm and dry no jaundice Neurologic: Motor/Sensory: no asterixis Psychiatric: A+Ox3, euthymic affect Lymphatic: no lymphedema Results & Data ([facility]) Vital Signs (Past 12 Hours) Vital Signs Temp Pulse Pulse Resp BP BP Pulse Ox 02/03/21 14:39 36.7 C 82 16 133/80 99 02/03/21 14:31 77 16 99 02/03/21 14:30 75 16 118/74 99 02/03/21 14:25 76 20 99 02/03/21 14:24 36.7 C 75 16 131/79 99 02/03/21 14:21 77 18 131/79 99 02/03/21 14:20 78 21 99 02/03/21 14:15 75 19 100 02/03/21 14:10 81 19 100 02/03/21 14:05 79 20 100 02/03/21 14:01 75 20 100 02/03/21 14:00 77 21 126/71 99 02/03/21 13:55 83 16 100 02/03/21 13:50 74 14 100 02/03/21 13:46 77 18 99 02/03/21 13:45 76 21 118/71 100 02/03/21 13:32 99 02/03/21 13:01 78 20 99 02/03/21 13:00 76 22 120/85 99 02/03/21 12:51 77 17 100 02/03/21 12:00 72 02/03/21 11:50 100 02/03/21 11:44 73 18 99 02/03/21 11:41 77 17 114/75 99 02/03/21 11:35 73 20 99 02/03/21 11:07 36.8 C 86 18 131/74 100
--- NOTE | 2021-02-03 15:06 | Communication Note ---
Date of Service: February 03, 2021 DVT only involving the posterior tibial veins of the right leg. No indications for filter or anticoagulation at this time Would repeat the duplex of the right leg veins in three days to check for propagation of the clot.
--- NOTE | 2021-02-03 15:21 | History & Physical Report ---
Date of Service February 03, 2021 Assessment & Plan (1) Symptomatic anemia: Pt is 65 y/o M with PMH HLD, GERD presented to ER with c/o exertional SOB x 2 weeks. Taking naproxen 500 mg twice daily x 3 weeks for right knee pain. Flight on airplane 3 weeks ago. In ER patient afebrile, BP 131/74, P: 86, 100% on room air CTA chest: No acute pulmonary embolus. No infiltrates or consolidative lesions. H/H 5.5/18 Likely upper GI bleed, possible bleeding ulcer from NSAID use Hemoccult stool Transfuse 2 units PRBCs Repeat H&H and transfuse further PRBC as needed Protonix bolus and drip Clear liquid diet Avoid NSAIDs Anemia studies GI consult (2) Deep vein thrombosis (DVT) of right lower extremity: 3 weeks ago was on 2 hour flight. Noticed edema to RLE after flight. Reports decreased edema recently. Denies pain or erythema. Denies history DVT or PE in past, or family history of clotting disorder. Venous Doppler RLE: Deep venous thrombosis involving right posterior tibialis vein CTA: no PE Unable to coagulate currently secondary to anemia Consult vascular surgery. Dr. Romo spoke with Dr. Tenorio recommended holding on anticoagulation holding on IVC filter at this time. Recommends repeat venous Doppler in 3 days (3) HLD (hyperlipidemia): Rosuvastatin held currently (4) Pulmonary nodule: CTA chest: Few pulmonary nodules, largest is measuring 6 mm in size. Short-term follow-up in 3-6 months is recommended per Fleischner Society guidelines DVT Prophylaxis -SCD left leg Full Code as per discussion with pt Follows with Dr Albrecht for routine care Pt was seen and care coordinated with Dr Martinez. See addendum History of Present Illness Chief Complaint: SOB Primary Care Provider: Jose Albrecht MD Pt is 65 y/o M with PMH HLD, GERD presented to ER with c/o SOB x 2 weeks. Patient states 3 weeks ago was walking when his right knee suddenly gave out. Since that time he was having discomfort to right knee. He followed up with PCP who had recommended naproxen 500 mg twice daily. Patient states he has been taking that for the past 3 weeks and has been taking with food. 3 weeks ago patient traveled to [place] which was a 2-hour flight. Several hours after the flight he noticed edema to right lower leg and ankle. Over the past 3 weeks the edema to his right ankle and foot has decreased. He denies any extremity erythema or left lower leg or ankle/foot pain or paresthesias. Patient reports for the past 2 weeks has noted shortness of breath with exertion. Has post nasal drip and cough in the morning. Denies hemoptysis, chest pain, dizziness, syncope. He reports normal BMs which were brown in coloration. Denies any noted melena or hematochezia. Denies fever/chills, diaphoresis, N/V/D/C, TINSLEY, vision changes, neck pain, palpitations, sore throat, choking, otalgia, rhinorrhea, abdominal pain, extremity weakness, rashes, urinary symptoms. Allergies Allergy/AdvReac Type Severity Reaction Status Date / Time No Known Drug Allergies Allergy Unknown NKDA Verified 02/03/21 13:37 Home Medications Medication Instructions Recorded Confirmed Type naproxen 500 mg PO BID 02/03/21 02/03/21 History rosuvastatin 5 mg PO QPM 02/03/21 02/03/21 History Past Med/Surg History Medical History GERD (gastroesophageal reflux disease) HLD (hyperlipidemia) Surgical History H/O hemorrhoidectomy History of colonoscopy History of esophagogastroduodenoscopy (EGD) History of inguinal hernia repair Family History (Updated 02/03/21 @ 15:44 by Veronique Gibbs PA-C) Father Coronary heart disease Social History (Updated 02/03/21 @ 15:44 by Veronique Gibbs PA-C) Smoking Status: Never smoker Second Hand Exposure: No; Do You Dip or Chew Tobacco: No; Tobacco Cessation Education Requested by Patient: No Hx Alcohol Use: Yes Alcohol type: beer Alcohol Intake Frequency: 2-4 x/Month Hx Substance Use: No Preferred Language: Armenian Communication Ability: Effective Results Technician Required: No Beliefs That Will Affect Care: None Current Living Situation: Spouse Other Information That Helps Us Care for You: No Feels Safe at Home: Yes Safety Concerns: Feels Safe At This Time Assistive Devices: Glasses Review of Systems Review of Systems: All systems reviewed & are unremarkable except as noted in HPI & below Physical Exam Physical Exam: General: no distress, WDWN Head: normocephalic, atraumatic Eyes: PERRL, EOM's intact, conjunctiva pallor, anicteric ENT: normal inspection external ears, nose, mucous membranes moist Neck: supple, trachea midline Lungs: clear, no respiratory distress, no wheezing/rhonchi/rales CV: RRR, no murmur Abd: normal BS, soft, non-tender Ext: no cyanosis, no erythema, RLE: knee without edema or tenderness to palpation, right ankle and foot with mild edema, medial ankle with telangiectasias, distal pulses intact, sensation to light touch intact Neuro: A&O x 3, no focal deficits noted, normal affect Skin: pale skin color, warm, dry Results & Data Results & Data ([facility]) Vital Signs (Past 12 Hours) Vital Signs Temp Pulse Pulse Resp BP BP Pulse Ox 02/03/21 15:01 75 19 99 02/03/21 15:00 79 19 143/85 H 99 02/03/21 14:46 81 20 100 02/03/21 14:45 75 19 124/82 100 02/03/21 14:40 78 18 133/80 99 02/03/21 14:39 36.7 C 82 16 133/80 99 02/03/21 14:35 76 14 125/77 98 02/03/21 14:31 77 16 99 02/03/21 14:30 75 16 118/74 99 02/03/21 14:25 76 20 99 02/03/21 14:24 36.7 C 75 16 131/79 99 02/03/21 14:21 77 18 131/79 99 02/03/21 14:20 78 21 99 02/03/21 14:15 75 19 100 02/03/21 14:10 81 19 100 02/03/21 14:05 79 20 100 02/03/21 14:01 75 20 100 02/03/21 14:00 77 21 126/71 99 02/03/21 13:55 83 16 100 02/03/21 13:50 74 14 100 02/03/21 13:46 77 18 99 02/03/21 13:45 76 21 118/71 100 02/03/21 13:32 99 02/03/21 13:01 78 20 99 02/03/21 13:00 76 22 120/85 99 02/03/21 12:51 77 17 100 02/03/21 12:00 72 02/03/21 11:50 100 02/03/21 11:44 73 18 99 02/03/21 11:41 77 17 114/75 99 02/03/21 11:35 73 20 99 02/03/21 11:07 36.8 C 86 18 131/74 100 Laboratory Results Short CBC 02/03/21 Range/Units 11:42 WBC 5.94 (4.8-10.8) K/uL Hgb 5.5 L* (14.0-18.0) g/dL Hct 18.7 L* (42-52) % Plt Count 496 H (130-400) K/uL BMP 02/03/21 11:42 Sodium 144 Potassium 4.4 Chloride 116 H Carbon Dioxide 23 BUN 13 Creatinine 0.91 Glucose 97 Calcium 8.7 Cardiac Enzymes 02/03/21 Range/Units 11:42 Troponin I < 0.015 (0-0.045) ng/ml Liver Function 02/03/21 Range/Units 11:42 Total Bilirubin 0.5 (0.2-1) mg/dl AST 11 L (15-37) U/L ALT 19 (12-78) U/L Alkaline Phosphatase 57 (45-117) U/L Albumin 3.7 (3.4-5.0) gm/dl Diagnostic Findings Chest CTA 02/03/21 11:38 CT ANGIOGRAM OF THE CHEST CLINICAL HISTORY: Dyspnea COMPARISON STUDY: No previous studies for comparison. TECHNIQUE: Following the IV administration of mL of Optiray, CT angiogram of the thorax was performed from the thoracic inlet to the lung bases utilizing the pulmonary embolus protocol. Images are reviewed in the axial, sagittal, and coronal planes. IV contrast was administered without complication. MIP imaging was performed. A dose lowering technique was utilized adhering to the principles of ALARA. CT DOSE: 496.73 mGy.cm FINDINGS: There is adequate opacification within main pulmonary artery. No pulmonary embolus is seen. Main pulmonary artery is normal in caliber. No right heart strain demonstrated. Heart is normal in size without evidence of pericardial effusion. No significant coronary calcifications are seen. There is no axillary, supra clavicle or internal mammary lymphadenopathy seen. Mediastinal lymph nodes are not enlarged. Visualized portion of thyroid gland shows no evidence of focal lesions. Large hiatal hernia is seen containing stomach which appear folded. Tracheobronchial tree is patent. Evaluation of pulmonary parenchyma is slightly limited due to respiratory motion artifact. No large infiltrates or consolidative lesions are seen. Small compressive atelectasis is seen within left lower lobe due to mass effect from large hiatal hernia. No pleural effusion is seen. -5 mm pulmonary nodule is seen within right upper lobe (series 4 image 230) -6 mm pulmonary nodule is seen within right middle lobe (series 4 image 113) Limited evaluation of upper abdominal viscera shows no evidence of acute abnormalities. Evaluation of osseous structures shows degenerative changes of the spine. IMPRESSION: 1. No acute pulmonary embolus. 2. Large hiatal hernia. 3. No infiltrates or consolidative lesions. 4. Few pulmonary nodules, largest is measuring 6 mm in size. Short-term follow- up in 3-6 months is recommended per Fleischner Society guidelines. Please refer to below summary of Fleischner criteria recommendations for follow- up of incidental CT nodules (Leigh Hannon, Guidelines for management of small pulmonary nodules detected on CT scans: A statement from the Fleischner Society, Radiology 237: [phone].) SOLID NODULES Solitary nodule size: <6 mm * low risk patients: no follow-up needed * high risk patients: optional CT at 12 months Solitary nodule size: 6-8 mm * low risk patients: follow-up at 6-12 months, then consider further follow-up at 18-24 months * high risk patients: initial follow-up CT at 6-12 months and then at 18-24 months if no change Solitary nodule size: >8 mm * either low or high risk patients - consider follow-up CT at 3 months, and/or CT-PET, and/or biopsy Multiple nodules size: <6 mm * low risk patients: no routine follow-up * high risk patients: optional CT at 12 months Multiple nodules size: 6-8 mm * low risk patients: follow-up at 3-6 months, then consider further follow-up at 18-24 months * high risk patients: follow-up at 3-6 months, then at 18-24 months if no change Multiple nodules size: >8 mm * low risk patients: follow-up at 3-6 months, then consider further follow-up at 18-24 months * high risk patients: follow-up at 3-6 months, then at 18-24 months if no sarah nge Note: newly detected indeterminate nodule in persons 35 years of age or older. * low risk patients: minimal or absent history of smoking and/or other known risk factors * high risk patients: history of smoking or of other known risk factors (e.g. first degree relative with lung cancer, or exposure to asbestos, radon, uranium) * if a nodule up to 8 mm is partly solid or is ground glass further follow-up is required after 24 months to exclude possible slow growing adenocarcinoma (TONY) SUBSOLID NODULES Solitary pure ground-glass nodule * nodule size <6 mm - no CT follow-up required * nodule size >=6 mm - follow-up CT at 6-12 months, then every 2 years until 5 years Solitary part-solid nodule * nodule size <6 mm - no CT follow-up required * nodule size >=6 mm - follow-up CT at 3-6 months. If unchanged, and solid component remains <6 mm, then annual follow-up for 5 years Multiple subsolid nodules * nodule size <6 mm - follow-up CT at 3-6 months, consider further follow-up at 2 and 4 years if stable * nodule size >=6 mm - follow-up CT at 3-6 months, subsequent management based on the most suspicious nodule(s) ACT 112: Negative or not required by law. The above report was generated using voice recognition software. It may contain grammatical, syntax or spelling errors. Electronically signed by: Nanette Sepulveda DO 02/03/2021 1:55 PM Venous Doppler Study 02/03/21 11:38 US venous doppler LE RT CLINICAL HISTORY: Dyspnea COMPARISON STUDY: No previous studies for comparison. FINDINGS: Real-time and color flow Doppler imaging were performed. Flow was seen within the femoral and popliteal veins with no intraluminal thrombus demonstrated. The saphenous vein is patent. Noncompressible right posterior tibialis vein is seen without evidence of blood flow representing thrombosis. The right peroneal and anterior tibialis veins are patent. IMPRESSION: Deep venous thrombosis involving right posterior tibialis vein. ACT 112: Negative or not required by law. The above report was generated using voice recognition software. It may contain grammatical, syntax or spelling errors. Electronically signed by: Nanette Sepulveda DO 02/03/2021 12:36 PM Code Status & VTE Plan VTE Prophylaxis Plan VTE Prophylaxis will be ordered: Yes Supervising Physician Co-Signing Physician Notes Date of Service: February 03, 2021 Attending addendum: 65-year-old male, presented with shortness of breath dyspnea on exertion, right leg swelling. Recent travel/flight to [place] Patient takes naproxen 1 tablet twice daily chronically. Denies of any hematemesis no abdominal pain no nausea vomiting On admission hemoglobin noted to be 5.5 Ordered for 2 units of PRBC to be transfused Started on Protonix drip, GI consulted, patient was seen by gastroenterology in the ER, appreciate input Recommends continue to correct anemia, Protonix drip over the weekend, can have clears, Possible EGD on Saturday, if no active GI bleed or hemodynamic instability noted over the weekend Lower extremity Doppler shows right posterior tibial clot vascular surgery consulted : per Dr Tenorio, low risk for propagation for now, no indication for emergent IV filter placement repeat lower ext Doppler in 3 days ( on Saturday ) for assessment -ordered Rosemary Maritnez MD
[2021-02-03] MEDS ORDERED: PANTOprazole 40 MG in DEXTROSE 5% 100 ML IV SCH (15:50)
[2021-02-03] MEDS ORDERED: ONDANSETRON INJ 2 MG/ML 2 ML VIAL IV PRN (15:50)
--- NOTE | 2021-02-03 16:54 | Electrocardiogram Report ---
Test Reason : Blood Pressure : / mmHG Vent. Rate : 077 BPM Atrial Rate : 077 BPM P-R Int : 164 ms QRS Dur : 132 ms QT Int : 416 ms P-R-T Axes : 042 013 019 degrees QTc Int : 470 ms Normal sinus rhythm Right bundle branch block Abnormal ECG No previous ECGs available Confirmed by Jackson Ogden ([id number]) on 02/03/2021 4:54:44 PM Referred By: REFERRED SELF Confirmed By:Tristin Ogden
[2021-02-03 18:55] LABS: Ferritin 2.9 ng/ml (8-388)
[2021-02-03 23:36] LABS: Hematocrit (blood only) 22.6 % (42-52); Reticulocyte % 2.3 % (0.5-2.0); Reticulocytes # 0.07 10^6/uL (0.02-0.10)
[2021-02-04 00:36] LABS: Hematocrit (blood only) 21.5 % (42-52); Hemoglobin 6.9 g/dL (14.0-18.0)
[2021-02-04] MEDS ORDERED: SODIUM CHLORIDE 0.9% 250 ML IV PRN ×2 (00:50→14:06)
[2021-02-04 00:54] LABS: Folate (Folic Acid) 16.3 ng/ml (>5.38)
[2021-02-04] MEDS: PANTOprazole 40 MG in DEXTROSE 5% 100 ML IV SCH ×4 (04:29→20:32)
[2021-02-04 07:23] LABS: Hematocrit (blood only) 25.7 % (42-52); Hemoglobin 8.1 g/dL (14.0-18.0); Mean Corpuscular Hemoglobin 24.7 pg (25-34); Mean Corpuscular Hgb Conc 31.5 g/dL (32-36); Mean Corpuscular Volume 78.4 fL (80-100); Mean Platelet Volume 9.6 fL (7.4-10.4); Platelet Count 355 K/uL (130-400); RDW Coefficient of Variation 16.4 % (11.5-14.5); RDW Standard Deviation 47.6 fL (36.4-46.3); Red Blood Count 3.28 M/uL (4.7-6.1); White Blood Count 6.43 K/uL (4.8-10.8)
[2021-02-04 07:47] LABS: Calcium 8.5 mg/dl (8.5-10.1); Creatinine Clr Calc Pharmacy 85.1 ml/min; Est GFR (African American) 105.5 ml/min; Potassium 4.4 mmol/L (3.5-5.1)
--- NOTE | 2021-02-04 13:03 | Anesthesiology Consultation ---
Date of Service February 04, 2021 Assessment & Plan (1) Encounter for pre-operative examination: Chart Review Chart Review: Acceptable Risk for Surgery and Patient NOT seen in Pre Admission Testing Consults Requested none History Surgery Operation Date: 02/04/21 14:00 Proposed Procedures p Esophagogastroduodenoscopy - Jermaine Lopez MD Height/Weight Height: 5 ft 6 in Weight: 80 kg Allergies Allergy/AdvReac Type Severity Reaction Status Date / Time No Known Drug Allergies Allergy Unknown NKDA Verified 02/03/21 13:37 Medications Home Medications Medication Instructions Recorded Confirmed Last Taken naproxen 500 mg PO BID 02/03/21 02/03/21 02/02/21 rosuvastatin 5 mg PO QPM 02/03/21 02/03/21 02/02/21 Active Medications Generic Name Dose Route Start Last Admin Trade Name Freq PRN Reason Stop Dose Admin Pantoprazole Sodium 40 mg/ 100 mls @ 20 mls/hr 02/03/21 12:27 02/04/21 09:12 Dextrose IV 03/05/21 12:26 8 mg/hr Q5H JIMMIE 20 mls/hr Administration 8 MG/HR Past Medical History Medical History GERD (gastroesophageal reflux disease) HLD (hyperlipidemia) Past Family History Family History Father Coronary heart disease Past Surgical History Surgical History H/O hemorrhoidectomy History of colonoscopy History of esophagogastroduodenoscopy (EGD) History of inguinal hernia repair Social History Smoking Status: Never smoker Do You Dip or Chew Tobacco: No Hx Alcohol Use: Yes Alcohol type: beer alcohol intake frequency: a few times a month Hx Substance Use: No Physical Exam Vital Signs Last Vital Signs Temp 36.6 C 02/04/21 11:42 Pulse 76 02/04/21 11:42 Resp 18 02/04/21 11:42 BP 143/81 H 02/04/21 11:42 Pulse Ox 97 02/04/21 11:42 Testing Laboratory Results 02/04/21 06:50 02/04/21 06:50 PT 10.3 Seconds (9.0-12.0) 02/03/21 11:42 INR 1.0 (0.9-1.1) 02/03/21 11:42 APTT < 20.0 Seconds (21.0-31.0) L 02/03/21 11:42 Blood Type A Positive 02/03/21 12:54 Antibody Screen NEGATIVE 02/03/21 12:54 Electrocardiogram Date: 02/03/21 Findings: + NSR @ (77) Right bundle branch block Abnormal ECG No previous ECGs available
[2021-02-04 13:22] LABS: Hematocrit (blood only) 27.4 % (42-52); Hemoglobin 8.8 g/dL (14.0-18.0)
--- NOTE | 2021-02-04 13:30 | Gastrointestinal Consultation ---
Date of Consultation February 04, 2021 Assessment & Plan (1) Symptomatic anemia: likely GI bleed from PUD vs. AVM. NSAID use is concerning for peptic ulcer. Recs: -- protonix drip -- NPO -EGD today --supportive care, IVFs --insert two large bore IVs (14-16 gauge) if not already done Thank you for allowing me to participate in the care of this patient History of Present Illness Attending Physician: Augie Driscoll MD 65 yo male who presented with symptomatic anemia. He has been having dyspnea on exertion x 2 weeks and has been taking naproxen BID for a few weeks for knee injury. Noted to be severely anemic on admission, now improved hgb 8.8 s/p transfusion. No melena, hematochezia. labs reviewed, VSS. Allergies Allergy/AdvReac Type Severity Reaction Status Date / Time No Known Drug Allergies Allergy Unknown NKDA Verified 02/03/21 13:37 Home Medications Medication Instructions Recorded Confirmed Type naproxen 500 mg PO BID 02/03/21 02/03/21 History rosuvastatin 5 mg PO QPM 02/03/21 02/03/21 History Patient History Medical History GERD (gastroesophageal reflux disease) HLD (hyperlipidemia) Surgical History H/O hemorrhoidectomy History of colonoscopy History of esophagogastroduodenoscopy (EGD) History of inguinal hernia repair Family History Father Coronary heart disease Social History Smoking Status: Never smoker Second Hand Exposure: No; Do You Dip or Chew Tobacco: No; Tobacco Cessation Education Requested by Patient: No Hx Alcohol Use: Yes Alcohol type: beer Alcohol Intake Frequency: 2-4 x/Month Hx Substance Use: No Preferred Language: Argentine Communication Ability: Effective Battery Tester Required: No Beliefs That Will Affect Care: None Current Living Situation: Spouse Other Information That Helps Us Care for You: No Feels Safe at Home: Yes Safety Concerns: Feels Safe At This Time Assistive Devices: Glasses Review of Systems Constitutional: no fever, no chills and no weight loss Eyes: as per Subjective / HPI Ear, Nose, Mouth, Throat: as per Subjective / HPI Respiratory: no dyspnea and no dyspnea on exertion Cardiovascular: no chest pain and no palpitations Gastrointestinal: as per Subjective / HPI Musculoskeletal: no joint pain and no swelling Integumentary: no rash and no lesions Neurologic: no numbness and no paresthesia Psychiatric: no depression and no anxiety Endocrine: no fatigue Hematologic / Lymphatic: no easy bleeding and no easy bruising Physical Exam Constitutional: WD/WN, vitals as above Eyes: EOM intact bilaterally Neck: normal visual inspection Respiratory: normal respiratory effort, lungs clear to auscultation Cardiovascular: RRR, no murmur, no edema Gastrointestinal (Abdomen): Inspection/Auscultation: abdomen normal to inspection; abdomen not distended Percussion/Palpation: abdomen soft; abdomen nontender and no hepatosplenomegaly Musculoskeletal: Extremities: no cyanosis Gait: normal gait Skin: no rashes, warm and dry Neurologic: moves all extremities Psychiatric: A+Ox3, euthymic affect Results & Data ([facility]) Vital Signs (Past 12 Hours) Vital Signs Temp Pulse Pulse Resp BP BP Pulse Ox 02/04/21 11:42 36.6 C 76 18 143/81 H 97 02/04/21 08:00 64 02/04/21 07:57 36.5 C 64 18 143/86 H 98 02/04/21 03:58 36.6 C 66 18 127/84 98 02/04/21 03:24 36.7 C 82 18 154/79 H 96 02/04/21 02:24 36.4 C L 67 18 120/79 97 02/04/21 01:54 36.7 C 71 16 128/80 96 02/04/21 01:39 36.6 C 71 16 126/79 97 PG Care Time/CCT Total # of Minutes Spent Total Time Spent with Patient: Total time spent is greater than 50% in coordination of care (as documented) at patient's floor/unit and/or counseling patient: Coding Level of Care Code 49612 Inpt Consult Level 4 Diagnoses Symptomatic anemia D64.9
[2021-02-04] MEDS ORDERED: fentaNYL citrate 100 MCG/2 ML VIAL ONE (13:39)
[2021-02-04] MEDS ORDERED: LIDOCAINE 2% 2 ML VIAL/AMP(20MG/ML) INFIL ONE (13:39)
[2021-02-04] MEDS ORDERED: MIDAZOLAM HCL 1 MG/ML 2ML VIAL ONE (13:39)
[2021-02-04] MEDS ORDERED: PROPOFOL IV EMULSION 10 MG/ML 20 ML VIAL IV ONE (13:39)
[2021-02-04] MEDS ORDERED: KETAMINE 50 MG/5 ML SYRINGE ONE (14:21)
[2021-02-04] MEDS ORDERED: IRON SUCROSE 150 MG in SODIUM CHLORIDE 0.9% 250 ML IV ONE (14:32)
--- NOTE | 2021-02-04 14:41 | GI REPORT ---
Patient Name: Rasheed Cotton Procedure Date: 02/04/2021 2:05 PM Date of : 1955 Admit Type: Inpatient Age: 65 Gender: Male Attending MD: Jermaine Lopez MD Procedure: Upper GI endoscopy Providers: Jermaine Lopez MD Referring MD: Referred Self Indications: Iron deficiency anemia secondary to chronic blood loss Medicines: Monitored Anesthesia Care Complications: No immediate complications. Estimated blood loss: None. Estimated Blood Loss: Estimated blood loss: none. Procedure: Pre-Anesthesia Assessment: - Prior Anticoagulants: The patient has taken no previous anticoagulant or antiplatelet agents. - ASA Grade Assessment: II - A patient with mild systemic disease. After obtaining informed consent, the endoscope was passed under direct vision. Throughout the procedure, the patient's blood pressure, pulse, and oxygen saturations were monitored continuously. The Endoscope was introduced through the mouth, and advanced to the second part of duodenum. The upper GI endoscopy was accomplished without difficulty. The patient tolerated the procedure well. Findings: A large hiatal hernia was present. The entire examined stomach was normal. The duodenal bulb and second portion of the duodenum were normal. No evidence of ulcers, blood, AVMs throughout entire procedure. Impression: - Large hiatal hernia. - Normal stomach. - Normal duodenal bulb and second portion of the duodenum. - No specimens collected. Recommendation: - Clear liquid diet today. -protonix 40 mg IV daily - Return patient to hospital [facility] for ongoing care. -trend H/H, transfuse prn hgb <7 - will continue to monitor, if continues to worsen will need colonoscopy inpatient, otherwise can likely do as an outpatient Jermaine Lopez MD 02/04/2021 2:40:29 PM This report has been signed electronically. Note Initiated On: 02/04/2021 2:05 PM Number of Addenda: 0 I attest to the content of the Intraoperative Record and orders documented therein, exceptions below {[id number]}
--- NOTE | 2021-02-04 14:42 | Procedure Note ---
Procedure Note Date of Service February 04, 2021 GI procedure note EGD normal exam except for hiatal hernia, no ulcers no bleeding. Recs: protonix 40 mg daily trend H/H, transfuse prn hgb <7 colonoscopy likely as an outpatient clear liquid diet today, advance as tolerated tomorrow if stable Jermaine Lopez MD Gastroenterology Coding
--- NOTE | 2021-02-04 15:35 | Anesthesiology Progress Note ---
Date of Service February 04, 2021 Anesthesia Post Procedure Vital Signs Vital Signs: Temp Pulse Pulse Pulse Resp BP BP 02/04/21 15:12 36.7 C 75 17 122/78 02/04/21 14:59 74 14 123/74 02/04/21 14:51 36.0 C L 77 18 123/77 02/04/21 14:40 74 16 118/72 02/04/21 14:39 36.3 C L 78 18 128/65 02/04/21 11:42 36.6 C 76 18 02/04/21 08:00 64 02/04/21 07:57 36.5 C 64 18 02/04/21 03:58 36.6 C 66 18 127/84 02/04/21 03:24 36.7 C 82 18 154/79 H 02/04/21 02:24 36.4 C L 67 18 120/79 02/04/21 01:54 36.7 C 71 16 128/80 02/04/21 01:39 36.6 C 71 16 126/79 02/04/21 01:23 36.6 C 66 18 123/74 02/03/21 23:30 36.6 C 73 20 106/57 L 02/03/21 21:21 36.8 C 74 20 140/80 02/03/21 21:09 36.8 C 73 20 153/88 H 02/03/21 20:09 36.8 C 74 18 142/92 H 02/03/21 19:09 36.7 C 74 20 153/94 H 02/03/21 18:39 36.8 C 72 18 142/86 H 02/03/21 18:24 36.6 C 73 18 128/78 02/03/21 18:07 36.7 C 75 18 128/66 02/03/21 17:28 36.8 C 78 18 129/77 02/03/21 16:28 36.3 C L 70 18 111/74 02/03/21 15:53 36.8 C 78 18 BP Pulse Ox 02/04/21 15:12 96 02/04/21 14:59 94 02/04/21 14:51 95 02/04/21 14:40 99 02/04/21 14:39 100 02/04/21 11:42 143/81 H 97 02/04/21 08:00 02/04/21 07:57 143/86 H 98 02/04/21 03:58 98 02/04/21 03:24 96 02/04/21 02:24 97 02/04/21 01:54 96 02/04/21 01:39 97 02/04/21 01:23 97 02/03/21 23:30 96 02/03/21 21:21 99 02/03/21 21:09 98 02/03/21 20:09 98 02/03/21 19:09 99 02/03/21 18:39 97 02/03/21 18:24 99 02/03/21 18:07 99 02/03/21 17:28 100 02/03/21 16:28 02/03/21 15:53 127/83 100 Transfer of Care Handoff Completed per policy Notes Mental Status: alert / awake / arousable and participated in evaluation Nausea / Vomiting: adequately controlled Pain: adequately controlled Airway Patency, RR, SpO2: stable & adequate BP & HR: stable & adequate Hydration State: stable & adequate Anesthetic Complications: no major complications apparent and Pt Satisfied with anesthetic care
--- NOTE | 2021-02-04 17:19 | Hospitalist Progress Note ---
Date of Service February 04, 2021 Assessment & Plan (1) Symptomatic anemia: Iron deficiency Anemia Acute Blood Loss Anemia, Possible GI bleed per admitting service notes: Pt is 65 y/o M with PMH HLD, GERD presented to ER with c/o exertional SOB x 2 weeks. Taking naproxen 500 mg twice daily x 3 weeks for right knee pain. Flight on airplane 3 weeks ago. In ER patient afebrile, BP 131/74, P: 86, 100% on room air CTA chest: No acute pulmonary embolus. No infiltrates or consolidative lesions. H/H 5.5/18 s/p 3 units pRBC Hg improved from 5.5 to 8 symptoms improving Venofer IV ordered will need PO Fe on discharge for EGD today continue Protonix drip monitor H&H GI consulted (2) Deep vein thrombosis (DVT) of right lower extremity: Distal Vein DVT, Asymptomatic per admitting service notes: 3 weeks ago was on 2 hour flight. Noticed edema to RLE after flight. Reports decreased edema recently. Denies pain or erythema. Denies history DVT or PE in past, or family history of clotting disorder. Venous Doppler RLE: Deep venous thrombosis involving right posterior tibialis vein CTA: no PE Unable to coagulate currently secondary to anemia Consult vascular surgery. Dr. Romo spoke with Dr. Tenorio recommended holding on anticoagulation holding on IVC filter at this time. Recommends repeat venous Doppler in 3 days as patient asymptomatic and in the setting of possible GI Bleed, will not proceed with anticoagulation monitor closely will need repeat Doppler US in 3 days (3) HLD (hyperlipidemia): Rosuvastatin held currently (4) Pulmonary nodule: CTA chest: Few pulmonary nodules, largest is measuring 6 mm in size. Short-term follow-up in 3-6 months is recommended per Fleischner Society guidelines DVT Prophylaxis -SCD left leg Full Code as per discussion with pt Follows with Dr Albrecht for routine care Disposition anticipate d/c home when medically stable plan of care discussed with patient in detail and at length all questions answered he is understanding, agreeable, comfortable with the plan of care Admission and Anticipated Discharge Date Admission Date: February 03, 2021 Subjective ff up for symptomatic anemia, etc seen resting in bed, comfortable states he feels improved today dyspnea on exertion much better no dizziness, chest pain, weakness no leg pain no other symptoms Review of Systems Review of Systems: All systems reviewed & are unremarkable except as noted in Subjective Physical Exam Physical Exam: General- oriented x 3, not in distress, speaks in sentences with no effort or accessory muscle use Head- atraumatic Eyes- PERRL, EOMI, anicteric pale conj ENT- oropharynx clear Neck- supple, no JVD, no adenopathy, no thyromegaly; carotids +2/2, no bruits appreciated Lungs- clear to auscultation bilaterally, no rales/wheezes Heart- normal rate, regular rhythm; no murmur, no gallop, no rub appreciated Abdomen- normal bowel sounds, nondistended, soft, nontender, no masses or hepatosplenomegaly Extremities- no pretibial edema, no calf tenderness; peripheral pulses intact RLE: no edema, no erythema/warmth/tenderness Neuro- alert, oriented x 3; CN 2-12 grossly intact; motor 5/5 bilaterally;sensation 100% on all extremities; no other gross focal neurologic deficits Skin- warm & dry Results & Data Results & Data ([facility]) Vital Signs (Past 12 Hours) Vital Signs Temp Pulse Pulse Pulse Resp BP BP 02/04/21 16:00 74 02/04/21 15:12 36.7 C 75 17 122/78 02/04/21 14:59 74 14 123/74 02/04/21 14:51 36.0 C L 77 18 123/77 02/04/21 14:40 74 16 118/72 02/04/21 14:39 36.3 C L 78 18 128/65 02/04/21 11:42 36.6 C 76 18 143/81 H 02/04/21 08:00 64 02/04/21 07:57 36.5 C 64 18 143/86 H Pulse Ox 02/04/21 16:00 02/04/21 15:12 96 02/04/21 14:59 94 02/04/21 14:51 95 02/04/21 14:40 99 02/04/21 14:39 100 02/04/21 11:42 97 02/04/21 08:00 02/04/21 07:57 98 all noted and reviewed including below Laboratory Results Laboratory Results - last 24 hr 02/03/21 02/03/21 02/03/21 11:42 12:54 22:50 WBC RBC Hgb 7.0 L Hct 22.6 L MCV MCH MCHC RDW Std Deviation RDW Coeff of Branden Plt Count MPV Reticulocyte % (Auto) 2.3 H Reticulocyte # 0.07 Sodium Potassium Chloride Carbon Dioxide Anion Gap BUN Creatinine Est Cr Clr Drug Dosing Est GFR ( Amer) Est GFR (Non-Af Amer) BUN/Creatinine Ratio Glucose Calcium Iron 8 L TIBC 519 H Ferritin 2.9 L Vitamin B12 Folate Blood Type A Positive Antibody Screen NEGATIVE Crossmatch See Detail 02/03/21 02/04/21 02/04/21 22:50 00:12 06:50 WBC 6.43 RBC 3.28 L Hgb 6.9 L* 8.1 L Hct 21.5 L 25.7 L MCV 78.4 L D MCH 24.7 L MCHC 31.5 L RDW Std Deviation 47.6 H RDW Coeff of Branden 16.4 H Plt Count 355 MPV 9.6 Reticulocyte % (Auto) Reticulocyte # Sodium Potassium Chloride Carbon Dioxide Anion Gap BUN Creatinine Est Cr Clr Drug Dosing Est GFR ( Amer) Est GFR (Non-Af Amer) BUN/Creatinine Ratio Glucose Calcium Iron TIBC Ferritin Vitamin B12 331 Folate 16.30 Blood Type Antibody Screen Crossmatch 02/04/21 02/04/21 06:50 13:12 WBC RBC Hgb 8.8 L Hct 27.4 L MCV MCH MCHC RDW Std Deviation RDW Coeff of Branden Plt Count MPV Reticulocyte % (Auto) Reticulocyte # Sodium 140 Potassium 4.4 Chloride 112 H Carbon Dioxide 23 Anion Gap 5.0 BUN 9 Creatinine 0.86 Est Cr Clr Drug Dosing 85.1 Est GFR ( Amer) 105.5 Est GFR (Non-Af Amer) 91.0 BUN/Creatinine Ratio 10.0 Glucose 84 Calcium 8.5 Iron TIBC Ferritin Vitamin B12 Folate Blood Type Antibody Screen Crossmatch
[2021-02-04 19:15] LABS: Hematocrit (blood only) 25.5 % (42-52); Hemoglobin 8.3 g/dL (14.0-18.0)
[2021-02-05] MEDS: PANTOprazole 40 MG in DEXTROSE 5% 100 ML IV SCH ×4 (01:58→15:30)
[2021-02-05 06:48] LABS: Basophils # (auto) 0.03 K/uL (0-0.2); Basophils % (auto) 0.5 %; Eosinophils # (auto) 0.26 K/uL (0-0.5); Eosinophils % (auto) 4.2 %; Hematocrit (blood only) 25.6 % (42-52); Hemoglobin 8.1 g/dL (14.0-18.0); Immature Granulocytes # (auto) 0.01 K/uL (0.00-0.02); Immature Granulocytes % (auto) 0.2 %; Lymphocytes # (auto) 1.37 K/uL (1.2-3.4); Lymphocytes % (auto) 22.4 %; Mean Corpuscular Hemoglobin 24.5 pg (25-34); Mean Corpuscular Hgb Conc 31.6 g/dL (32-36); Mean Corpuscular Volume 77.6 fL (80-100); Mean Platelet Volume 9.6 fL (7.4-10.4); Monocytes # (auto) 0.67 K/uL (0.11-0.59); Monocytes % (auto) 10.9 %; Neutrophils # (auto) 3.78 K/uL (1.4-6.5); Neutrophils % (auto) 61.8 %; Platelet Count 332 K/uL (130-400); RDW Coefficient of Variation 16.8 % (11.5-14.5); RDW Standard Deviation 47.6 fL (36.4-46.3); White Blood Count 6.12 K/uL (4.8-10.8)
[2021-02-05 07:17] LABS: BUN Creatinine Ratio 6.9 (10-20); Calcium 8.7 mg/dl (8.5-10.1); Creatinine Clr Calc Pharmacy 81.8 ml/min; Est GFR (African American) 92.2 ml/min; Est GFR (Non-African American) 79.6 ml/min; Potassium 4.2 mmol/L (3.5-5.1)
--- NOTE | 2021-02-05 16:48 | Hospitalist Progress Note ---
Date of Service February 05, 2021 Assessment & Plan (1) Symptomatic anemia: Iron deficiency Anemia Acute Blood Loss Anemia, Possible GI bleed per admitting service notes: Pt is 65 y/o M with PMH HLD, GERD presented to ER with c/o exertional SOB x 2 weeks. Taking naproxen 500 mg twice daily x 3 weeks for right knee pain. Flight on airplane 3 weeks ago. In ER patient afebrile, BP 131/74, P: 86, 100% on room air CTA chest: No acute pulmonary embolus. No infiltrates or consolidative lesions. H/H 5.5/18 s/p 3 units pRBC Hg improved from 5.5 to 8 no chest pain, dyspnea, dizziness Venofer IV ordered will need PO Fe on discharge s/p EGD: large hiatal hernia, no signs of bleeding change protonix drip to protonix 40mg IV daily monitor H&H for Colonoscopy tomorrow GI consulted (2) Deep vein thrombosis (DVT) of right lower extremity: Distal Vein DVT, Asymptomatic per admitting service notes: 3 weeks ago was on 2 hour flight. Noticed edema to RLE after flight. Reports decreased edema recently. Denies pain or erythema. Denies history DVT or PE in past, or family history of clotting disorder. Venous Doppler RLE: Deep venous thrombosis involving right posterior tibialis vein CTA: no PE Unable to coagulate currently secondary to anemia Consult vascular surgery. Dr. Romo spoke with Dr. Tenorio recommended holding on anticoagulation holding on IVC filter at this time. Recommends repeat venous Doppler in 3 days as patient asymptomatic and in the setting of possible GI Bleed, will not proceed with anticoagulation monitor closely will need repeat Doppler US tomorrow (3) HLD (hyperlipidemia): Rosuvastatin held currently (4) Pulmonary nodule: CTA chest: Few pulmonary nodules, largest is measuring 6 mm in size. Short-term follow-up in 3-6 months is recommended per Fleischner Society guidelines DVT Prophylaxis -SCD left leg Full Code as per discussion with pt Follows with Dr Albrecht for routine care Disposition anticipate d/c home when medically stable plan of care discussed with patient in detail and at length all questions answered he is understanding, agreeable, comfortable with the plan of care Admission and Anticipated Discharge Date Admission Date: February 03, 2021 Subjective ff up for anemia, DVT, etc seen resting in bed, comfortable states he feels fine overall no abdominal pain, nausea, no BM no Lower Ext pain no other symptoms Review of Systems Review of Systems: All systems reviewed & are unremarkable except as noted in Subjective Physical Exam Physical Exam: General- oriented x 3, not in distress, speaks in sentences with no effort or accessory muscle use Eyes- anicteric Neck- no JVD Lungs- clear breath sounds BL Heart- normal rate, regular rhythm; no murmurs Abdomen- normal bowel sounds, nondistended, soft, nontender Extremities- no pretibial edema, no calf tenderness no erythema, warmth, tenderness Neuro- alert, oriented x 3; no gross focal neurologic deficits Skin- warm & dry Results & Data [facility] Vital Signs (Past 12 Hours) Vital Signs Temp Pulse Pulse Resp BP Pulse Ox 02/05/21 15:57 36.7 C 73 17 134/81 97 02/05/21 14:47 74 02/05/21 11:50 36.8 C 70 18 146/86 H 97 02/05/21 09:17 67 02/05/21 07:17 36.9 C 72 18 131/78 96 all noted and reviewed including below Laboratory Results Laboratory Results - last 24 hr 02/04/21 02/05/21 02/05/21 19:05 06:35 06:35 WBC 6.12 RBC 3.30 L Hgb 8.3 L 8.1 L Hct 25.5 L 25.6 L MCV 77.6 L MCH 24.5 L MCHC 31.6 L RDW Std Deviation 47.6 H RDW Coeff of Branden 16.8 H Plt Count 332 MPV 9.6 Immature Gran % (Auto) 0.2 Neut % (Auto) 61.8 Lymph % (Auto) 22.4 Canadian % (Auto) 10.9 Eos % (Auto) 4.2 Baso % (Auto) 0.5 Neut # (Auto) 3.78 Lymph # (Auto) 1.37 Canadian # (Auto) 0.67 H Eos # (Auto) 0.26 Baso # (Auto) 0.03 Immature Gran # (Auto) 0.01 Sodium 141 Potassium 4.2 Chloride 111 H Carbon Dioxide 26 Anion Gap 3.0 BUN 7 Creatinine 0.99 Est Cr Clr Drug Dosing 81.8 Est GFR ( Amer) 92.2 Est GFR (Non-Af Amer) 79.6 BUN/Creatinine Ratio 6.9 L Glucose 89 Calcium 8.7
[2021-02-05] MEDS ORDERED: LAVAGE SOLUTION 4000ML PO SCH (18:00)
[2021-02-05] MEDS: D5NSS + 20MEQ KCL 20 MEQ/1,000 ML BAG IV SCH (18:57)
[2021-02-06 07:29] LABS: Basophils # (auto) 0.02 K/uL (0-0.2); Basophils % (auto) 0.3 %; Eosinophils # (auto) 0.22 K/uL (0-0.5); Eosinophils % (auto) 3.1 %; Hematocrit (blood only) 27.8 % (42-52); Hemoglobin 8.7 g/dL (14.0-18.0); Lymphocytes # (auto) 1.58 K/uL (1.2-3.4); Mean Corpuscular Hemoglobin 24.4 pg (25-34); Mean Corpuscular Hgb Conc 31.3 g/dL (32-36); Mean Corpuscular Volume 77.9 fL (80-100); Mean Platelet Volume 9.5 fL (7.4-10.4); Monocytes # (auto) 0.85 K/uL (0.11-0.59); Monocytes % (auto) 11.8 %; Neutrophils # (auto) 4.51 K/uL (1.4-6.5); Neutrophils % (auto) 62.8 %; Platelet Count 338 K/uL (130-400); RDW Coefficient of Variation 17.4 % (11.5-14.5); RDW Standard Deviation 49.3 fL (36.4-46.3); Red Blood Count 3.57 M/uL (4.7-6.1); White Blood Count 7.18 K/uL (4.8-10.8)
[2021-02-06 07:46] LABS: BUN Creatinine Ratio 5.8 (10-20); Calcium 8.5 mg/dl (8.5-10.1); Creatinine Clr Calc Pharmacy 72.9 ml/min; Est GFR (African American) 91.1 ml/min; Est GFR (Non-African American) 78.6 ml/min
--- NOTE | 2021-02-06 08:28 | History & Physical Bridge Note ---
Date of Service February 06, 2021 History & Physical Bridge Note I have examined the patient, reviewed the History & Physical and in the interval since the performance of the History & Physical I have noted the following changes of clinical significance: no changes noted proceed with colonoscopy. risks/benefits and procedure discussed with patient, who agrees to proceed
[2021-02-06] MEDS: D5NSS + 20MEQ KCL 20 MEQ/1,000 ML BAG IV SCH ×2 (08:30→09:07)
[2021-02-06] MEDS ORDERED: ACETAMINOPHEN 325 MG TAB PO PRN (09:02)
[2021-02-06] MEDS ORDERED: ACETAMINOPHEN 325 MG TAB ONE (09:04)
--- NOTE | 2021-02-06 10:12 | Consultation ---
Date of Consultation February 06, 2021 Assessment & Plan (1) DVT (deep venous thrombosis): Pt with RLE post tib vein DVT and GI bleeding. Recommended to hospitalist that pt have another US in 3 days to reeval for propagation of DVT, pt is scheduled for this later today. If US demonstrates propagation of DVT, then will recommend IVC filter. Can perform tomorrow morning if needed. Informed pt of this recommendation. Affected thrombotic vein of extremity: tibial Chronicity: acute DVT location: lower extremity Laterality: right Qualified Code(s): I82.441 - Acute embolism and thrombosis of right tibial vein History of Present Illness Reason for Consultation: DVT, GI bleed Attending Physician: Augie Driscoll MD History of Present Illness 65 yo m with hx of hyperlipidemia and GERD, admitted with RLE DVT and GI bleed, seen in consultation today for DVT and possible IVC filter insertion. Pt states no hx of DVT in past and is very active typically, walking with his daily. States he flew to [place] 2 weeks ago. Admits muscle twitching in R calf and some pain there, but denies edema presently. States he had some edema last week in R ankle. Currently being worked up for GI bleeding and not on AC. Pt denies TINSLEY, fever, chest pain, SOB, abd pain, N/V, rest pain, claudication, other complaints. Venous doppler 02/03 demonstrates DVT in R post tib vein. Allergies Allergy/AdvReac Type Severity Reaction Status Date / Time No Known Drug Allergies Allergy Unknown NKDA Verified 02/03/21 13:37 Home Medications Medication Instructions Recorded Confirmed Type naproxen 500 mg PO BID 02/03/21 02/03/21 History rosuvastatin 5 mg PO QPM 02/03/21 02/03/21 History Patient History Medical History GERD (gastroesophageal reflux disease) HLD (hyperlipidemia) Surgical History H/O hemorrhoidectomy History of colonoscopy History of esophagogastroduodenoscopy (EGD) History of inguinal hernia repair Family History Father Coronary heart disease Social History Smoking Status: Never smoker Second Hand Exposure: No; Do You Dip or Chew Tobacco: No; Tobacco Cessation Education Requested by Patient: No Hx Alcohol Use: Yes Alcohol type: beer Alcohol Intake Frequency: 2-4 x/Month Hx Substance Use: No Preferred Language: Hong Konger Communication Ability: Effective Mobile Home Technician Required: No Beliefs That Will Affect Care: None Current Living Situation: Spouse Other Information That Helps Us Care for You: No Feels Safe at Home: Yes Safety Concerns: Feels Safe At This Time Assistive Devices: Glasses Review of Systems Review of Systems: All systems reviewed & are unremarkable except as noted in HPI & below Physical Exam Constitutional: WD/WN, vitals as above healthy appearing, cooperative and comfortable; not in distress Eyes: PERRL, conjunctivae normal, anicteric sclerae ENMT: Ears: no hearing impairment Neck: trachea midline Respiratory: normal respiratory effort, lungs clear to auscultation Cardiovascular: Rate/Rhythm: regular rate and regular rhythm Vessels: normal peripheral pulses, femoral pulses present, posterior tibial pulses present, dorsalis pedis pulses present and radial pulses present Extremities: normal capillary refill; no edema Gastrointestinal (Abdomen): normal bowel sounds, soft, nontender, no hepatosplenomegaly Musculoskeletal: no cyanosis or clubbing, extremities motor strength 5/5 Skin: no rashes, warm and dry Neurologic: moves all extremities and awake; no focal motor deficits and not confused Psychiatric: A+Ox3, euthymic affect Results & Data ([facility]) Vital Signs (Past 12 Hours) Vital Signs Temp Pulse Pulse Resp BP Pulse Ox 02/06/21 08:00 73 02/06/21 07:09 36.8 C 74 19 125/78 97 02/06/21 03:54 37.1 C 79 21 132/79 97 02/05/21 23:13 36.9 C 83 12 132/82 9 L
--- NOTE | 2021-02-06 12:11 | Ultrasound Report ---
US venous doppler LE RT CLINICAL HISTORY: ff up DVT COMPARISON STUDY: February 03, 2021 FINDINGS: Real-time and color flow Doppler imaging were performed. Flow was seen within the femoral a nd popliteal veins. 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 The saphenous vein is patent. 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 ACT 112: Negative or not required by law. The above report was generated using voice recognition software. It may contain grammatical, syntax o r spelling errors. Electronically signed by: Nanette Sepulveda DO 02/06/2021 12:10 PM
[2021-02-06] MEDS: PANTOprazole 40 MG in SYRINGE 0 ML IV SCH (12:20)
--- NOTE | 2021-02-06 12:26 | Communication Note ---
Date of Service: February 06, 2021 Repeat USN showed no proximal propagation of the posterior tibial clot. No indication for a filter at this time.
--- NOTE | 2021-02-06 14:17 | Anesthesiology Consultation ---
Date of Service February 06, 2021 Assessment & Plan ASA ASA2 Proposed Anesthesia Anesthesia Type: MAC Risk / Benefits Reviewed With: PT / POA / Parent / Guardian, Accepts Plan and Informed Consent Obtained History Surgery Operation Date: 02/04/21 14:00 Proposed Procedures p Esophagogastroduodenoscopy - Jermaine Lopez MD Operation Date: 02/06/21 17:45 Proposed Procedures p Colonoscopy Dr. John Lopez MD Height/Weight Height: 5 ft 6 in Weight: 79.3 kg Allergies Allergy/AdvReac Type Severity Reaction Status Date / Time No Known Drug Allergies Allergy Unknown NKDA Verified 02/06/21 14:11 Medications Home Medications Medication Instructions Recorded Confirmed Last Taken naproxen 500 mg PO BID 02/03/21 02/03/21 02/02/21 rosuvastatin 5 mg PO QPM 02/03/21 02/03/21 02/02/21 Active Medications Generic Name Dose Route Start Last Admin Trade Name Freq PRN Reason Stop Dose Admin Potassium Chloride/Dextrose/Sod Cl 20 meq in 1,000 mls @ 75 mls/hr 02/05/21 17:45 02/06/21 13:43 D5nss + 20meq Kcl IV 03/07/21 17:44 0 mls/hr .[id number] JIMMIE Infusion Pantoprazole Sodium 40 mg/ 10 mls @ 5 mls/min 02/06/21 11:00 02/06/21 12:20 Syringe IV 03/08/21 10:59 5 mls/min DAILY@1100 JIMMIE Administration NPO Date Last Intake of Fluids: 02/04/21 Time Last Intake of Fluids: 08:00 Date Last Intake of Solids: 02/03/21 Time Last Intake of Solids: 23:59 Past Medical History Medical History GERD (gastroesophageal reflux disease) HLD (hyperlipidemia) Exercise / Class Metabolic Activity II 4-5 Yardwork/Stairs/Walk up hill Past Family History Family History Father Coronary heart disease Past Surgical History Surgical History H/O hemorrhoidectomy History of colonoscopy History of esophagogastroduodenoscopy (EGD) History of inguinal hernia repair Past Anesthesia History No Hx of Anesthesia Complications and No Family Hx of Anesthesia Complications History of PONV No Hx of PONV and No Hx of Motion Sickness Social History Smoking Status: Never smoker Do You Dip or Chew Tobacco: No Hx Alcohol Use: Yes Alcohol type: beer alcohol intake frequency: a few times a month Hx Substance Use: No Review of Systems denies fever/cough/ colds/ chest pain/ SOB/ CAM denies CAM Physical Exam Vital Signs Last Vital Signs Temp 36.7 C 02/06/21 11:16 Pulse 71 02/06/21 11:16 Resp 19 02/06/21 11:16 BP 133/76 02/06/21 11:16 Pulse Ox 97 02/06/21 11:16 ENMT Mouth: no TMJ abnormality and no dentition abnormality Thyromental Distance: > or= 3.5 Finger Breadths Mallampati Class: II Neck + facial hair; neck extension not limited Respiratory normal respiratory effort; no respiratory distress Auscultation: lungs clear to auscultation bilaterally Cardiovascular Rate/Rhythm: regular rate and regular rhythm Neurologic moves all extremities Psychiatric Orientation: alert and oriented x 3 Testing Laboratory Results 02/06/21 07:02 02/06/21 07:02 PT 10.3 Seconds (9.0-12.0) 02/03/21 11:42 INR 1.0 (0.9-1.1) 02/03/21 11:42 APTT < 20.0 Seconds (21.0-31.0) L 02/03/21 11:42 Blood Type A Positive 02/03/21 12:54 Antibody Screen NEGATIVE 02/03/21 12:54 Electrocardiogram Date: 02/03/21 Findings: + NSR @ (77) Right bundle branch block Abnormal ECG No previous ECGs available
[2021-02-06] MEDS ORDERED: ATROPINE SULFATE 0.1 MG/ML 10ML SYR IV PRN (14:22)
[2021-02-06] MEDS ORDERED: ePHEDrine sulfate 50 MG/ML AMP IV PRN (14:22)
[2021-02-06] MEDS ORDERED: ONDANSETRON INJ 2 MG/ML 2 ML VIAL IV PRN (14:22)
[2021-02-06] MEDS ORDERED: PROPOFOL IV EMULSION 10 MG/ML 20 ML VIAL IV ONE (14:47)
[2021-02-06] MEDS ORDERED: LIDOCAINE 2% 2 ML VIAL/AMP(20MG/ML) INFIL ONE (14:47)
--- NOTE | 2021-02-06 14:59 | GI REPORT ---
Patient Name: Rasheed Cotton Procedure Date: 02/06/2021 2:14 PM Date of : 1955 Admit Type: Inpatient Age: 65 Gender: Male Attending MD: Jermaine Lopez MD Procedure: Colonoscopy Providers: Jermaine Lopez MD Referring MD: Jermaine Lopez MD Indications: Unexplained iron deficiency anemia Medicines: Monitored Anesthesia Care Complications: No immediate complications. Estimated blood loss: None. Estimated Blood Loss: Estimated blood loss: none. Procedure: Pre-Anesthesia Assessment: - Prior Anticoagulants: The patient has taken no previous anticoagulant or antiplatelet agents. - ASA Grade Assessment: II - A patient with mild systemic disease. After I obtained informed consent, the scope was passed under direct vision. Throughout the procedure, the patient's blood pressure, pulse, and oxygen saturations were monitored continuously. The Colonoscope was introduced through the anus and advanced to the cecum, identified by appendiceal orifice and ileocecal valve. The colonoscopy was performed without difficulty. The patient tolerated the procedure well. The quality of the bowel preparation was fair. Findings: Non-bleeding internal hemorrhoids were found. The hemorrhoids were small. Impression: - Preparation of the colon was fair. - Non-bleeding internal hemorrhoids. - No specimens collected. Recommendation: - Return patient to hospital [facility] for ongoing care. - Advance diet as tolerated today. trend H/H, supportive care Jermaine Lopez MD 02/06/2021 2:59:23 PM This report has been signed electronically. Note Initiated On: 02/06/2021 2:14 PM Number of Addenda: 0 I attest to the content of the Intraoperative Record and orders documented therein, exceptions below {[id number]}
--- NOTE | 2021-02-06 15:09 | Anesthesiology Progress Note ---
Date of Service February 06, 2021 Anesthesia Post Procedure Vital Signs Vital Signs: Temp Pulse Pulse Resp BP BP Pulse Ox 02/06/21 14:13 37.1 C 65 18 144/79 H 97 02/06/21 11:16 36.7 C 71 19 133/76 97 02/06/21 08:00 73 02/06/21 07:09 36.8 C 74 19 125/78 97 02/06/21 03:54 37.1 C 79 21 132/79 97 02/05/21 23:13 36.9 C 83 12 132/82 9 L 02/05/21 19:29 36.4 C L 83 21 153/88 H 98 02/05/21 15:57 36.7 C 73 17 134/81 97 Pain Intensity Posterior Knee: Pain Intensity: 4 Transfer of Care Handoff Completed per policy Notes Mental Status: alert / awake / arousable Patient Amnestic to Procedure: Yes Nausea / Vomiting: adequately controlled Pain: adequately controlled Airway Patency, RR, SpO2: stable & adequate BP & HR: stable & adequate Hydration State: stable & adequate Anesthetic Complications: no major complications apparent and Pt Satisfied with anesthetic care
--- NOTE | 2021-02-06 18:29 | Hospitalist Progress Note ---
Date of Service February 06, 2021 Assessment & Plan (1) Symptomatic anemia: Iron deficiency Anemia Acute Blood Loss Anemia, Possible GI bleed per admitting service notes: Pt is 65 y/o M with PMH HLD, GERD presented to ER with c/o exertional SOB x 2 weeks. Taking naproxen 500 mg twice daily x 3 weeks for right knee pain. Flight on airplane 3 weeks ago. In ER patient afebrile, BP 131/74, P: 86, 100% on room air CTA chest: No acute pulmonary embolus. No infiltrates or consolidative lesions. H/H 5.5/18 s/p 3 units pRBC Hg improved from 5.5 to 8--> remained at 8 no chest pain, dyspnea, dizziness Venofer IV ordered will need PO Fe on discharge s/p EGD: large hiatal hernia, no signs of bleeding change protonix drip to protonix 40mg IV daily monitor H&H s/p Colonoscopy: non bleeding internal hemorrhoids repeat H&H tomorrow discussed with ananya Perez to proceed with anticoagulation (2) Deep vein thrombosis (DVT) of right lower extremity: Distal Vein DVT, Asymptomatic per admitting service notes: 3 weeks ago was on 2 hour flight. Noticed edema to RLE after flight. Reports decreased edema recently. Denies pain or erythema. Denies history DVT or PE in past, or family history of clotting disorder. Venous Doppler RLE: Deep venous thrombosis involving right posterior tibialis vein CTA: no PE repeat Doppler US: Mild interval worsening of thrombosis of the duplicated distal posterior tibialis veins when compared to recent prior study. discussed with Social Work Coordinator Dr. Gross recommend to initiate Lovenox 1mg/kg q12h plan of care discussed with patient in detail and at length all questions answered he is understanding, agreeable, comfortable with the plan of care (3) HLD (hyperlipidemia): Rosuvastatin held currently (4) Pulmonary nodule: CTA chest: Few pulmonary nodules, largest is measuring 6 mm in size. Short-term follow-up in 3-6 months is recommended per Fleischner Society guidelines Full Code as per discussion with pt Follows with Dr Albrecht for routine care Disposition d/c home tomorrow when medically stable plan of care discussed with patient in detail and at length all questions answered he is understanding, agreeable, comfortable with the plan of care Admission and Anticipated Discharge Date Admission Date: February 03, 2021 Subjective ff up for anemia, DVT seen resting in bed, comfortable s/p colonoscopy no hematochezia/melena no abdominal pain tolerated diet well no headache, dizziness, chest pain, palpitations no other symptoms Review of Systems Review of Systems: All systems reviewed & are unremarkable except as noted in Subjective Physical Exam Physical Exam: General- oriented x 3, not in distress, speaks in sentences with no effort or accessory muscle use Eyes- anicteric Neck- no JVD Lungs- clear breath sounds bilaterally Heart- normal rate, regular rhythm; no murmurs Abdomen- normal bowel sounds, nondistended, soft, nontender Extremities- no pretibial edema, no calf tenderness no erythema/warmth/tenderness Neuro- alert, oriented x 3; no gross focal neurologic deficits Skin- warm & dry Results & Data Results & Data ([facility]) Vital Signs (Past 12 Hours) Vital Signs Temp Pulse Pulse Resp BP BP Pulse Ox 02/06/21 16:05 36.6 C 69 19 146/83 H 99 02/06/21 15:34 72 18 128/87 99 02/06/21 15:17 69 18 125/77 96 02/06/21 15:02 83 16 136/79 95 02/06/21 14:13 37.1 C 65 18 144/79 H 97 02/06/21 11:16 36.7 C 71 19 133/76 97 02/06/21 08:00 73 02/06/21 07:09 36.8 C 74 19 125/78 97 all noted and reviewed including below Laboratory Results Laboratory Results - last 24 hr 02/03/21 02/06/21 02/06/21 12:54 07:02 07:02 WBC 7.18 RBC 3.57 L Hgb 8.7 L Hct 27.8 L MCV 77.9 L MCH 24.4 L MCHC 31.3 L RDW Std Deviation 49.3 H RDW Coeff of Branden 17.4 H Plt Count 338 MPV 9.5 Immature Gran % (Auto) 0.0 Neut % (Auto) 62.8 Lymph % (Auto) 22.0 [place] % (Auto) 11.8 Eos % (Auto) 3.1 Baso % (Auto) 0.3 Neut # (Auto) 4.51 Lymph # (Auto) 1.58 [place] # (Auto) 0.85 H Eos # (Auto) 0.22 Baso # (Auto) 0.02 Immature Gran # (Auto) 0.00 Sodium 139 Potassium 4.0 Chloride 111 H Carbon Dioxide 23 Anion Gap 6.0 BUN 6 L Creatinine 1.00 Est Cr Clr Drug Dosing 72.9 Est GFR ( Amer) 91.1 Est GFR (Non-Af Amer) 78.6 BUN/Creatinine Ratio 5.8 L Glucose 94 Calcium 8.5 Crossmatch See Detail
[2021-02-06] MEDS: ENOXAPARIN 80 MG/0.8 ML SYR SQ SCH (19:41)
[2021-02-07] MEDS: ENOXAPARIN 80 MG/0.8 ML SYR SQ SCH (06:10)
[2021-02-07 07:31] LABS: Basophils # (auto) 0.01 K/uL (0-0.2); Basophils % (auto) 0.1 %; Eosinophils # (auto) 0.31 K/uL (0-0.5); Eosinophils % (auto) 4.6 %; Hematocrit (blood only) 27.5 % (42-52); Hemoglobin 8.7 g/dL (14.0-18.0); Immature Granulocytes # (auto) 0.02 K/uL (0.00-0.02); Immature Granulocytes % (auto) 0.3 %; Lymphocytes % (auto) 23.7 %; Mean Corpuscular Hemoglobin 24.6 pg (25-34); Mean Corpuscular Hgb Conc 31.6 g/dL (32-36); Mean Corpuscular Volume 77.9 fL (80-100); Mean Platelet Volume 9.5 fL (7.4-10.4); Monocytes # (auto) 0.78 K/uL (0.11-0.59); Monocytes % (auto) 11.5 %; Neutrophils # (auto) 4.04 K/uL (1.4-6.5); Neutrophils % (auto) 59.8 %; Platelet Count 336 K/uL (130-400); RDW Coefficient of Variation 18.3 % (11.5-14.5); RDW Standard Deviation 50.2 fL (36.4-46.3); Red Blood Count 3.53 M/uL (4.7-6.1); White Blood Count 6.76 K/uL (4.8-10.8)
[2021-02-07 07:56] LABS: BUN Creatinine Ratio 7.8 (10-20); Calcium 8.4 mg/dl (8.5-10.1); Creatinine Clr Calc Pharmacy 79.8 ml/min; Est GFR (African American) 100.8 ml/min; Potassium 3.9 mmol/L (3.5-5.1)
[2021-02-07] MEDS: PANTOprazole 40 MG in SYRINGE 0 ML IV SCH (11:56)
--- NOTE | 2021-02-07 14:30 | Hospitalist Progress Note ---
Date of Service February 07, 2021 Assessment & Plan (1) Symptomatic anemia: Iron deficiency Anemia Acute Blood Loss Anemia, Possible GI bleed per admitting service notes: Pt is 65 y/o M with PMH HLD, GERD presented to ER with c/o exertional SOB x 2 weeks. Taking naproxen 500 mg twice daily x 3 weeks for right knee pain. Flight on airplane 3 weeks ago. In ER patient afebrile, BP 131/74, P: 86, 100% on room air CTA chest: No acute pulmonary embolus. No infiltrates or consolidative lesions. H/H 5.5/18 s/p 3 units pRBC Hg improved from 5.5 to 8--> remained stable at 8.7 no chest pain, dyspnea, dizziness Venofer IV ordered will need PO Fe on discharge s/p EGD: large hiatal hernia, no signs of bleeding change protonix drip to protonix 40mg IV daily monitor H&H s/p Colonoscopy: non bleeding internal hemorrhoids discussed with Dr. Lopez, ananya to proceed with anticoagulation unclear source of possible GI Bleed, resolved Gastritis from Naproxen use? ff up Hemoglobin, Fe as outpatient repeat Hg on PCP ff up (2) Deep vein thrombosis (DVT) of right lower extremity: Posterior Tibilias Vein DVT, Acute per admitting service notes: 3 weeks ago was on 2 hour flight. Noticed edema to RLE after flight. Reports decreased edema recently. Denies pain or erythema. Denies history DVT or PE in past, or family history of clotting disorder. Venous Doppler RLE: Deep venous thrombosis involving right posterior tibialis vein CTA: no PE repeat Doppler US: Mild interval worsening of thrombosis of the duplicated distal posterior tibialis veins when compared to recent prior study. discussed with Delivery Clerk Dr. Gross recommend to initiate Lovenox 1mg/kg q12h- in light of anemia, ease of reversal d/c plan: Lovenox 80mg SC q12h refer to Hematology (3) HLD (hyperlipidemia): Rosuvastatin held currently (4) Pulmonary nodule: CTA chest: Few pulmonary nodules, largest is measuring 6 mm in size. Short-term follow-up in 3-6 months is recommended per Fleischner Society guidelines Please refer to full report in the Ordered Studies section above Further work up, management, and ff up as outpatient Disposition d/c home ff up with PCP this week refer to Delivery Clerk plan of care discussed with patient and his in detail and at length all questions answered they are understanding, agreeable, comfortable with the plan of care Admission and Anticipated Discharge Date Admission Date: February 03, 2021 Subjective ff up for anemia, DVT seen resting in chair, comfortable states he feels much better overall feels some achiness on both calves no chest pain, dyspnea, dizziness, nausea/vomiting had 1 loose BM today non bloody, no melena no other symptoms states he is ready for discharge today Review of Systems Review of Systems: All systems reviewed & are unremarkable except as noted in Subjective Physical Exam Physical Exam: General- oriented x 3, not in distress, speaks in sentences with no effort or accessory muscle use Eyes- anicteric Neck- no JVD Lungs- clear BS BL no rales, no wheezing Heart- normal rate, regular rhythm; no murmurs Abdomen- normal bowel sounds, nondistended, soft, nontender Extremities- no pretibial edema, no calf tenderness Neuro- alert, oriented x 3; no gross focal neurologic deficits Skin- warm & dry Results & Data Results & Data ([facility]) Vital Signs (Past 12 Hours) Vital Signs Temp Pulse Resp BP Pulse Ox 02/07/21 11:42 37.0 C 77 20 120/71 97 02/07/21 06:31 37.0 C 71 16 123/74 95 02/07/21 04:18 36.9 C 74 18 104/55 L 97 02/07/21 03:19 70 18 136/63 95 all noted and reviewed including below Laboratory Results Laboratory Results - last 24 hr 02/07/21 02/07/21 06:52 06:52 WBC 6.76 RBC 3.53 L Hgb 8.7 L Hct 27.5 L MCV 77.9 L MCH 24.6 L MCHC 31.6 L RDW Std Deviation 50.2 H RDW Coeff of Branden 18.3 H Plt Count 336 MPV 9.5 Immature Gran % (Auto) 0.3 Neut % (Auto) 59.8 Lymph % (Auto) 23.7 [place] % (Auto) 11.5 Eos % (Auto) 4.6 Baso % (Auto) 0.1 Neut # (Auto) 4.04 Lymph # (Auto) 1.60 [place] # (Auto) 0.78 H Eos # (Auto) 0.31 Baso # (Auto) 0.01 Immature Gran # (Auto) 0.02 Sodium 141 Potassium 3.9 Chloride 111 H Carbon Dioxide 23 Anion Gap 7.0 BUN 7 Creatinine 0.92 Est Cr Clr Drug Dosing 79.8 Est GFR ( Amer) 100.8 Est GFR (Non-Af Amer) 87.0 BUN/Creatinine Ratio 7.8 L Glucose 85 Calcium 8.4 L
--- NOTE | 2021-02-07 14:57 | Discharge Summary ---
Date of Service February 07, 2021 Admission HPI Per Admitting Provider Pt is 65 y/o M with PMH HLD, GERD presented to ER with c/o SOB x 2 weeks. Patient states 3 weeks ago was walking when his right knee suddenly gave out. Since that time he was having discomfort to right knee. He followed up with PCP who had recommended naproxen 500 mg twice daily. Patient states he has been taking that for the past 3 weeks and has been taking with food. 3 weeks ago patient traveled to [place] which was a 2-hour flight. Several hours after the flight he noticed edema to right lower leg and ankle. Over the past 3 weeks the edema to his right ankle and foot has decreased. He denies any extremity erythema or left lower leg or ankle/foot pain or paresthesias. Patient reports for the past 2 weeks has noted shortness of breath with exertion. Has post nasal drip and cough in the morning. Denies hemoptysis, chest pain, dizziness, syncope. He reports normal BMs which were brown in coloration. Denies any noted melena or hematochezia. Denies fever/chills, diaphoresis, N/V/D/C, TINSLEY, vision changes, neck pain, palpitations, sore throat, choking, otalgia, rhinorrhea, abdominal pain, extremity weakness, rashes, urinary symptoms. Admission Exam Per Admitting Provider Physical Exam: General: no distress, WDWN Head: normocephalic, atraumatic Eyes: PERRL, EOM's intact, conjunctiva pallor, anicteric ENT: normal inspection external ears, nose, mucous membranes moist Neck: supple, trachea midline Lungs: clear, no respiratory distress, no wheezing/rhonchi/rales CV: RRR, no murmur Abd: normal BS, soft, non-tender Ext: no cyanosis, no erythema, RLE: knee without edema or tenderness to palpation, right ankle and foot with mild edema, medial ankle with telangiectasias, distal pulses intact, sensation to light touch intact Neuro: A&O x 3, no focal deficits noted, normal affect Skin: pale skin color, warm, dry Principal Diagnosis IRON DEFICIENCY ANEMIA ACUTE VENOUS THROMBOSIS, RIGHT POSTERIOR TIBIALIS VEINS Discharge Data Allergies Allergy/AdvReac Type Severity Reaction Status Date / Time No Known Drug Allergies Allergy Unknown NKDA Verified 02/06/21 14:11 Consultations 02/03/21 14:46 ED Decision to Admit Stat 02/03/21 15:50 Consult Gastroenterology Routine Consult Vascular Surgery Routine 02/04/21 09:21 Consult Gastroenterology Routine Procedures Performed Operation Date: 02/04/21 14:00 Actual Procedures p Esophagogastroduodenoscopy(Not Applicable) - Jermaine Lopez MD Findings: A large hiatal hernia was present. The entire examined stomach was normal. The duodenal bulb and second portion of the duodenum were normal. No evidence of ulcers, blood, AVMs throughout entire procedure. Impression: - Large hiatal hernia. - Normal stomach. - Normal duodenal bulb and second portion of the duodenum. - No specimens collected. Recommendation: - Clear liquid diet today. -protonix 40 mg IV daily - Return patient to hospital [facility] for ongoing care. -trend H/H, transfuse prn hgb <7 - will continue to monitor, if continues to worsen will need colonoscopy inpatient, otherwise can likely do as an outpatient Operation Date: 02/06/21 17:45 Actual Procedures p Colonoscopy - Jermaine Lopez MD FINDINGS: Real-time and color flow Doppler imaging were performed. Flow was seen within the femoral and popliteal veins. 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 The saphenous vein is patent. 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 Ordered Studies 02/03/21 11:38 CT angio chest PE protocol Stat FINDINGS: There is adequate opacification within main pulmonary artery. No pulmonary embolus is seen. Main pulmonary artery is normal in caliber. No right heart strain demonstrated. Heart is normal in size without evidence of pericardial effusion. No significant coronary calcifications are seen. There is no axillary, supra clavicle or internal mammary lymphadenopathy seen. Mediastinal lymph nodes are not enlarged. Visualized portion of thyroid gland shows no evidence of focal lesions. Large hiatal hernia is seen containing stomach which appear folded. Tracheobronchial tree is patent. Evaluation of pulmonary parenchyma is slightly limited due to respiratory motion artifact. No large infiltrates or consolidative lesions are seen. Small compressive atelectasis is seen within left lower lobe due to mass effect from large hiatal hernia. No pleural effusion is seen. -5 mm pulmonary nodule is seen within right upper lobe (series 4 image 230) -6 mm pulmonary nodule is seen within right middle lobe (series 4 image 113) Limited evaluation of upper abdominal viscera shows no evidence of acute abnormalities. Evaluation of osseous structures shows degenerative changes of the spine. IMPRESSION: 1. No acute pulmonary embolus. 2. Large hiatal hernia. 3. No infiltrates or consolidative lesions. 4. Few pulmonary nodules, largest is measuring 6 mm in size. Short-term follow- up in 3-6 months is recommended per Fleischner Society guidelines. Please refer to below summary of Fleischner criteria recommendations for follow- up of incidental CT nodules (Leigh Hannon, Guidelines for management of small pulmonary nodules detected on CT scans: A statement from the Fleischner Society, Radiology 237: [phone].) SOLID NODULES Solitary nodule size: <6 mm * low risk patients: no follow-up needed * high risk patients: optional CT at 12 months Solitary nodule size: 6-8 mm * low risk patients: follow-up at 6-12 months, then consider further follow-up at 18-24 months * high risk patients: initial follow-up CT at 6-12 months and then at 18-24 months if no change Solitary nodule size: >8 mm * either low or high risk patients - consider follow-up CT at 3 months, and/or CT-PET, and/or biopsy Multiple nodules size: <6 mm * low risk patients: no routine follow-up * high risk patients: optional CT at 12 months Multiple nodules size: 6-8 mm * low risk patients: follow-up at 3-6 months, then consider further follow-up at 18-24 months * high risk patients: follow-up at 3-6 months, then at 18-24 months if no change Multiple nodules size: >8 mm * low risk patients: follow-up at 3-6 months, then consider further follow-up at 18-24 months * high risk patients: follow-up at 3-6 months, then at 18-24 months if no change Note: newly detected indeterminate nodule in persons 35 years of age or older. * low risk patients: minimal or absent history of smoking and/or other known risk factors * high risk patients: history of smoking or of other known risk factors (e.g. first degree relative with lung cancer, or exposure to asbestos, radon, uranium) * if a nodule up to 8 mm is partly solid or is ground glass further follow-up is required after 24 months to exclude possible slow growing adenocarcinoma (TONY) SUBSOLID NODULES Solitary pure ground-glass nodule * nodule size <6 mm - no CT follow-up required * nodule size >=6 mm - follow-up CT at 6-12 months, then every 2 years until 5 years Solitary part-solid nodule * nodule size <6 mm - no CT follow-up required * nodule size >=6 mm - follow-up CT at 3-6 months. If unchanged, and solid component remains <6 mm, then annual follow-up for 5 years Multiple subsolid nodules * nodule size <6 mm - follow-up CT at 3-6 months, consider further follow-up at 2 and 4 years if stable * nodule size >=6 mm - follow-up CT at 3-6 months, subsequent management based on the most suspicious nodule(s) US venous doppler LE RT Stat COMPARISON STUDY: No previous studies for comparison. FINDINGS: Real-time and color flow Doppler imaging were performed. Flow was seen within the femoral and popliteal veins with no intraluminal thrombus demonstrated. The saphenous vein is patent. Noncompressible right posterior tibialis vein is seen without evidence of blood flow representing thrombosis. The right peroneal and anterior tibialis veins are patent. IMPRESSION: Deep venous thrombosis involving right posterior tibialis vein. 02/06/21 10:00 US venous doppler LE RT Routine COMPARISON STUDY: February 03, 2021 FINDINGS: Real-time and color flow Doppler imaging were performed. Flow was seen within the femoral and popliteal veins. 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 The saphenous vein is patent. 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 Hospital Course (1) Symptomatic anemia: Iron deficiency Anemia Acute Blood Loss Anemia, Possible GI bleed per admitting service notes: Pt is 65 y/o M with PMH HLD, GERD presented to ER with c/o exertional SOB x 2 weeks. Taking naproxen 500 mg twice daily x 3 weeks for right knee pain. Flight on airplane 3 weeks ago. In ER patient afebrile, BP 131/74, P: 86, 100% on room air CTA chest: No acute pulmonary embolus. No infiltrates or consolidative lesions. H/H 5.5/18 s/p 3 units pRBC Hg improved from 5.5 to 8--> remained stable at 8.7 no chest pain, dyspnea, dizziness Venofer IV ordered will need PO Fe on discharge s/p EGD: large hiatal hernia, no signs of bleeding change protonix drip to protonix 40mg IV daily monitor H&H s/p Colonoscopy: non bleeding internal hemorrhoids discussed with ananya Perez to proceed with anticoagulation unclear source of possible GI Bleed, resolved Gastritis from Naproxen use? ff up Hemoglobin, Fe as outpatient repeat Hg on PCP ff up (2) Deep vein thrombosis (DVT) of right lower extremity: Posterior Tibilias Vein DVT, Acute per admitting service notes: 3 weeks ago was on 2 hour flight. Noticed edema to RLE after flight. Reports decreased edema recently. Denies pain or erythema. Denies history DVT or PE in past, or family history of clotting disorder. Venous Doppler RLE: Deep venous thrombosis involving right posterior tibialis vein CTA: no PE repeat Doppler US: Mild interval worsening of thrombosis of the duplicated distal posterior tibialis veins when compared to recent prior study. discussed with Anatomical Embalmer Dr. Gross recommend to initiate Lovenox 1mg/kg q12h- in light of anemia, ease of reversal Possible surgery consulted, IVC filter not indicated d/c plan: Lovenox 80mg SC q12h refer to Hematology (3) HLD (hyperlipidemia): Rosuvastatin held currently (4) Pulmonary nodule: CTA chest: Few pulmonary nodules, largest is measuring 6 mm in size. Short-term follow-up in 3-6 months is recommended per Fleischner Society guidelines Please refer to full report in the Ordered Studies section above Further work up, management, and ff up as outpatient Disposition: d/c home ff up with PCP this week refer to Anatomical Embal[facility] plan of care discussed with patient and his in detail and at length all questions answered they are understanding, agreeable, comfortable with the plan of care Total Time Total Time Spent Total Time Spent (In Minutes): 60 minutes Discharge Plan Discharge Items Patient Disposition: Home - Self-Care Reason For Visit: GI BLEED/ANEMA/DVT Discharge Diagnosis: Iron deficiency anemia Acute deep venous thrombosis, right lower extremity Activity: Resume your previous activity Activity Comment: Gradually as tolerated Exercise/Sports: Wait until after follow-up appointment Driving/Machine Use: No driving until reevaluated and allowed by primary care physician Non-emergency contact: Primary Care Provider Call non-emergency contact if: you have any medication questions, your symptoms worsen, your pain is not controlled, your pain is worsening, your pain is unusual for you, your pain is concerning for you and you have a fever Follow-up/Referrals: Jose Albrecht MD [Primary Care Provider] - (Date & Time 02/15/2021 10:00 AM Provider Jose Albrecht MD [facility] ) Diet: Heart Healthy Addtl Attending Provider Instructions: Your new medications are: Lovenox injection-for treatment of deep venous thrombosis/blood clots Iron supplement-for iron deficiency anemia If you sustain any head trauma, even if without symptoms, you need to proceed to the ER immediately for evaluation. Do not take medications under the class of NSAIDs including: Ibuprofen, naproxen, etc. Call your primary care physician or return to the ER immediately if with worsening of symptoms, including weakness, shortness of breath, chest pain, dizziness, blood in your stools, Worsening of leg swelling. Follow-up with primary care physician Dr. Felton on Wednesday February 10, 2021 at 3 PM. You also need to establish care with a blood specialist/bag machine set up operator. Your primary care physician can assist you with this process. Pending Studies at Discharge: No Stand-Alone Forms: My [employer], Smoking Cessation Medications and DC Order Prescriptions: New enoxaparin [Lovenox] 80 mg/0.8 mL Syringe 80 mg subcut Q12H Qty: 48 RF: 2 ferrous sulfate 324 mg (65 mg iron) tablet,delayed release (DR/EC) 324 mg PO BID Qty: 60 RF: 2 Continued rosuvastatin 5 mg tablet 5 mg PO QPM RF: 0 Discontinued naproxen 500 mg tablet 500 mg PO BID RF: 0 Discharge Orders: Discharge Order (Routine); Ordered 02/07/21 Ordered By: Augie Driscoll Admission Data Admit Date/Time: 02/03/21 14:43 Attending Provider: Augie Driscoll Admit Provider: Juan,Rosemary H. Primary Care Provider: Jose Albrecht Other Providers: Rosemary Martinez ; Dar Jackson ; Katharine Ashford ; Gian Chavez ; Lali Richard ; Khurram Pretty ; Nils Guallpa ; Mae Abernathy ; Luis Irving ; Nella Delarosa ; Abby Massey ; Marian Albarado ; Jenae Calderón ; Michael De La Fuente ; Tanner Tenorio ; Jermaine Lopez Other Interventions: Discharge Summary Assessment (RN) Last Done: 02/06/21 15:17
== END 2021-02-07 16:16 | disposition home or self-care (01) | DRG 812 ==
LOC: ED 10:54 → SUATTDRO 14:43 → 2S 14:43

== ENCOUNTER 2024-11-05 15:51 | Inpatient (IN) ==
[2024-11-05] MEDS: ONDANSETRON INJ 2 MG/ML 2 ML VIAL IV STA (16:17)
[2024-11-05] MEDS: ACETAMINOPHEN 1,000 MG/100 ML VIAL IV STA (16:17)
[2024-11-05 16:25] LABS: Basophils # (auto) 0.03 K/uL (0.00-0.20); Basophils % (auto) 0.2 %; Eosinophils # (auto) 0.05 K/uL (0.00-0.50); Eosinophils % (auto) 0.4 %; Hematocrit (blood only) 44.7 % (42.0-52.0); Hemoglobin 15.5 g/dl (14.0-18.0); Immature Granulocytes # (auto) 0.04 K/uL (0.01-0.20); Immature Granulocytes % (auto) 0.3 %; Lymphocytes # (auto) 1.22 K/uL (1.20-3.40); Lymphocytes % (auto) 9.3 %; Mean Corpuscular Hemoglobin 30.7 pg (25.0-34.0); Mean Corpuscular Hgb Conc 34.7 g/dL (32.0-36.0); Mean Corpuscular Volume 88.5 fL (80.0-100.0); Mean Platelet Volume 9.8 fL (9.4-12.4); Monocytes # (auto) 0.58 K/uL (0.11-0.59); Monocytes % (auto) 4.4 %; Neutrophils # (auto) 11.19 K/uL (1.40-6.50); Neutrophils % (auto) 85.4 %; Platelet Count 292 K/uL (130-400); RDW Coefficient of Variation 12.4 % (11.5-14.5); RDW Standard Deviation 40.1 fL (36.4-46.3); Red Blood Count 5.05 M/uL (4.70-6.10); White Blood Count 13.11 K/ul (4.8-10.8)
--- NOTE | 2024-11-05 16:43 | XRay Report ---
Chest radiograph, one view History: Chest pain Comparison: None Findings: Single AP view of the chest performed. No focal consolidation or pleural effusion. No pneumothorax. The cardiomediastinal silhouette is within normal limits. Normal pulmonary vascularity. No evidence for lymphadenopathy. No visualized bony or soft tissue abnormality. Impression: No acute process. There is a large esophageal hiatal hernia, which is gas-filled. Electronically signed by Jackson Pacheco 11-05-2024 4:42 PM
[2024-11-05 16:44] LABS: Albumin Globulin Ratio 1.4 (0.9-2); Albumin Level 4.5 gm/dl (3.4-5.0); BUN Creatinine Ratio 12.4 (10-20); Bilirubin,Total 0.6 mg/dl (0.2-1.0); Calcium 9.7 mg/dl (8.6-10.3); Creatinine Clr Calc Pharmacy 69.4 ml/min; Globulin 3.2 gm/dl (2.5-4.0); Total Protein 7.7 gm/dl (6.0-8.3)
[2024-11-05 16:50] LABS: Troponin I High Sensitivity 3.4 pg/ml (0-20)
[2024-11-05 16:51] LABS: Prothrombin Time 10.8 Seconds (9.0-12.0)
[2024-11-05] MEDS: OPTIRAY 320 100ml IV ONE (16:59)
--- NOTE | 2024-11-05 17:27 | Emergency Department Note ---
Impression & Plan Large hiatal hernia, Intractable abdominal pain ED Provider Note HISTORY OF PRESENT ILLNESS: Patient is a 69-year-old male presenting with left-sided abdominal pain and left chest pain. Patient reports about 30 minutes after eating lunch today he started have significant pain in his left upper quadrant and left chest. He states the pain is located in his left upper and lower quadrants and seems to radiate up his left side into his left chest and into his left shoulder. He denies nausea, vomiting or diarrhea. Patient denies any history of cardiac stents. Denies any DVT or PE history. He is not on any anticoagulation. He states that he has had this pain before but is never been this intense. Denies any history of abdominal surgeries. ROS: as above PHYSICAL EXAM: Constitutional: Patient appears in no acute distress. HENT: Head: Normocephalic and atraumatic. Eyes: EOMI, PERRL Mouth/Throat: Mucous membranes moist. Neck: Trachea midline. Neck supple. Cardiovascular: RRR, No murmurs, rubs or gallops. Intact distal pulses. Pulmonary/Chest: No respiratory distress. Breath sounds clear and equal bilaterally. No wheezes or rales. Abdominal: Abdomen soft, no rebound or guarding. Diffuse TTP Musculoskeletal: No edema, tenderness or deformity noted. Skin: Warm and dry. No rash, erythema, pallor or cyanosis Psychiatric: Appropriate mood and affect for situation. Neurological: Alert and keenly responsive. CN II-XII grossly intact, moving all extremities equally and fully. MDM: - Vitals signs showed hypertension - History obtained via patient. History as above. - Chronic conditions affecting care: GERD; DVT of RLE - Differential diagnoses include, but are not limited to: Acute coronary syndrome; pulmonary embolism; dissection; tension pneumothorax; esophageal rupture; pneumonia - Order placed for continuous cardiac monitoring. At this time, monitor showed rate of 66 bpm with normal sinus rhythm, per my interpretation. - External medical records reviewed. Discharge summary dated 02/07/2021 was reviewed. Patient was admitted to the hospital for acute right lower extremity DVT and symptomatic iron deficiency anemia. - EKG image interpreted by myself showed normal sinus rhythm. Rate 83 bpm. QT 384. No acute ischemic changes. Noted have a right bundle branch block. - Laboratory workup interpreted by myself showed leukocytosis (WBC 13.11); normal PT/NR; stable electrolytes; normal AST/ALT; normal troponin; normal lipase - CXR reviewed by myself is negative for pneumonia, per my interpretation. Radiology notes a large esophageal hiatal hernia which is gas-filled. - Patient initially given 1g IV tylenol for pain management. However, on reassessment he was still complaining of pain. He was given 40 mg IV Protonix, 4 mg IV Zofran and 50 mcg of IV fentanyl. On reassessment and discussion of his results, the patient reports his pain is about a 6 out of 10. He was given 4 mg of IV morphine. - Lactate added to workup and returned within normal limits, suggesting no evidence of strangulation of the hiatal hernia. However, patient still complaining of 6-7 out of 10 discomfort on assessment. He has not had any episodes of vomiting in the ER. He was given a dose of 0.5 mg IV Dilaudid. - Given patient's uncontrolled pain, do think you would benefit from an inpatient hospital admission for further consult with potentially GI and surgery for potential endoscopy or further recommendations for his hiatal hernia. - Discussion was had with spring encaser about patient's case and need for admission - Hospitalist, Dr. Welch, consulted for admission - [facility] ASSESSMENT AND PLAN: Diagnosis: Large hiatal hernia; intractable abdominal pain Plan: Admit Past Med/Surg History Problem List Intractable abdominal pain (Acute) Large hiatal hernia (Acute) Encounter for pre-operative examination Symptomatic anemia (Acute) DVT (deep venous thrombosis) (Acute) MATIAS (dyspnea on exertion) (Acute) GIB (gastrointestinal bleeding) (Acute) Pulmonary nodule Deep vein thrombosis (DVT) of right lower extremity Symptomatic anemia Anemia HLD (hyperlipidemia) GERD (gastroesophageal reflux disease) Surgical History History of inguinal hernia repair H/O hemorrhoidectomy History of colonoscopy History of esophagogastroduodenoscopy (EGD) Family History Father Coronary heart disease Social History Smoking Status: Never smoker Second Hand Exposure: No; Do You Dip or Chew Tobacco: No; Hx Alcohol Use: Yes Alcohol type: beer Alcohol Intake Frequency: 2-4 x/Month Hx Substance Use: No Preferred Language: Icelandic Communication Ability: Effective Net Front End Developer Required: No Beliefs That Will Affect Care: None Current Living Situation: Spouse Feels Safe at Home: Yes Assistive Devices: None Allergies Allergies Allergy/AdvReac Type Severity Reaction Status Date / Time No Known Drug Allergies Allergy Unknown NKDA Verified 11/05/24 18:31 Home Meds Home Medications Medication Instructions Recorded Confirmed rosuvastatin 5 mg tablet 5 mg PO QAM 02/03/21 11/05/24 Previous Rx's Medication Instructions Recorded ferrous sulfate 324 mg (65 mg 324 mg PO BID #60 tabs 02/07/21 iron) tablet,delayed release Results & Data (ED) Vital Signs Vital Signs - 24 hr 11/05/24 15:53 11/05/24 16:15 11/05/24 16:26 Temperature 36 C L Temperature Source Temporal Artery Scan Pulse Rate 83 85 Pulse Rate [Apical] Pulse Rhythm [Apical] Pulse Strength [Apical] Respiratory Rate 20 Respiratory Effort / Characteristics Non-Labored Respiratory Depth Normal Respiratory Pattern Blood Pressure 186/89 H Blood Pressure [Right Arm] Blood Pressure Mean 121 Blood Pressure Mean [Right Arm] Blood Pressure Position [Right Arm] Pulse Oximetry 95 Oxygen Delivery Method Room Air Room Air Sepsis Recent Fever Within 48 Hours No Sepsis New/Unexplained Change in Mental Status N/A Sepsis Action Taken by Nursing No Action Required 11/05/24 18:00 11/05/24 18:31 11/05/24 19:21 Temperature Temperature Source Pulse Rate Pulse Rate [Apical] 67 66 Pulse Rhythm [Apical] Regular Pulse Strength [Apical] Normal Respiratory Rate 18 17 Respiratory Effort / Characteristics Non-Labored Spontaneous Respiratory Depth Normal Respiratory Pattern Regular Blood Pressure Blood Pressure [Right Arm] 162/113 H 154/91 H Blood Pressure Mean Blood Pressure Mean [Right Arm] 129 112 Blood Pressure Position [Right Arm] Semi-fowlers Lying Pulse Oximetry 94 96 Oxygen Delivery Method Room Air Room Air Sepsis Recent Fever Within 48 Hours Sepsis New/Unexplained Change in Mental Status Sepsis Action Taken by Nursing 11/05/24 20:12 11/05/24 20:23 Temperature Temperature Source Pulse Rate 88 Pulse Rate [Apical] 101 H Pulse Rhythm [Apical] Regular Pulse Strength [Apical] Normal Respiratory Rate 18 Respiratory Effort / Characteristics Non-Labored Spontaneous Respiratory Depth Normal Respiratory Pattern Regular Blood Pressure Blood Pressure [Right Arm] 160/97 H Blood Pressure Mean Blood Pressure Mean [Right Arm] 118 Blood Pressure Position [Right Arm] Sitting Pulse Oximetry 94 Oxygen Delivery Method Room Air Sepsis Recent Fever Within 48 Hours Sepsis New/Unexplained Change in Mental Status Sepsis Action Taken by Nursing Laboratory Data 11/05/24 16:12 11/05/24 16:12 Lab Results 11/05/24 11/05/24 11/05/24 Range/Units 16:12 18:41 20:05 WBC 13.11 H (4.8-10.8) K/ul RBC 5.05 (4.70-6.10) M/uL Hgb 15.5 (14.0-18.0) g/dl Hct 44.7 (42.0-52.0) % MCV 88.5 (80.0-100.0) fL MCH 30.7 (25.0-34.0) pg MCHC 34.7 (32.0-36.0) g/dL RDW Std Deviation 40.1 (36.4-46.3) fL RDW Coeff of Branden 12.4 (11.5-14.5) % Plt Count 292 (130-400) K/uL MPV 9.8 (9.4-12.4) fL Immature Gran % (Auto) 0.3 % Neut % (Auto) 85.4 % Lymph % (Auto) 9.3 % [place] % (Auto) 4.4 % Eos % (Auto) 0.4 % Baso % (Auto) 0.2 % Neut # (Auto) 11.19 H (1.40-6.50) K/uL Lymph # (Auto) 1.22 (1.20-3.40) K/uL [place] # (Auto) 0.58 (0.11-0.59) K/uL Eos # (Auto) 0.05 (0.00-0.50) K/uL Baso # (Auto) 0.03 (0.00-0.20) K/uL Immature Gran # (Auto) 0.04 (0.01-0.20) K/uL PT 10.8 (9.0-12.0) Seconds INR 1.0 (0.9-1.1) Sodium 141 (136-145) mmol/L Potassium 4.0 (3.5-5.1) mmol/L Chloride 105 (98-107) mmol/L Carbon Dioxide 26 (21-32) mmol/L Anion Gap 10 (3-11) BUN 13 (6-23) mg/dl Creatinine 1.05 (0.6-1.4) mg/dl Est Cr Clr Drug Dosing 69.4 ml/min eGFR 76.84 BUN/Creatinine Ratio 12.4 (10-20) Glucose 144 H (70-99(Fasting)) mg/dl Lactate 1.7 (0.4-2.0) mmol/L Calcium 9.7 (8.6-10.3) mg/dl Total Bilirubin 0.6 (0.2-1.0) mg/dl AST 16 (13-39) U/L ALT 18 (7-52) U/L Alkaline Phosphatase 73 (34-104) U/L Troponin I High Sens 3.4 (0-20) pg/ml Total Protein 7.7 (6.0-8.3) gm/dl Albumin 4.5 (3.4-5.0) gm/dl Globulin 3.2 (2.5-4.0) gm/dl Albumin/Globulin Ratio 1.4 (0.9-2) Lipase 60 (11-82) U/L Urine Color Yellow Urine Appearance Clear (Clear) Urine pH 5.5 (4.5-7.5) Ur Specific [place] 1.021 (1.000-1.030) Urine Protein Negative (Negative) Urine Glucose (UA) Negative (Negative) Urine Ketones Trace H (Negative) Urine Blood Negative (Negative) Urine Nitrite Negative (Negative) Urine Bilirubin Negative (Negative) Urine Urobilinogen Negative (Negative) Ur Leukocyte Esterase Negative (Negative) Administered Medications Discontinued Medications Fentanyl Citrate (Fentanyl Citrate Pf 100 Mcg/2 Ml Vial) 50 mcg IV NOW STA Stop: 11/05/24 18:01 Last Admin: 11/05/24 18:27 Dose: 50 mcg Documented By: KARISHMA Acetaminophen (Ofirmev) 1,000 mg in 100 mls @ 400 mls/hr IV NOW STA Stop: 11/05/24 16:19 Last Infusion: 11/05/24 16:39 Dose: Infused Documented By: Admin: 11/05/24 16:17 Dose: 400 mls/hr Documented By: SKINNY Pantoprazole Sodium (Protonix) 40 mg in 10 mls @ 5 mls/min IV NOW ONE Stop: 11/05/24 18:01 Last Admin: 11/05/24 18:26 Dose: 5 mls/min Documented By: KARISHMA Ioversol (Optiray 320 100ml) 90 ml IV ONCE ONE Stop: 11/05/24 17:00 Last Admin: 11/05/24 16:59 Dose: 90 ml Documented By: VANESSA Morphine Sulfate (Morphine Sulfate 4 Mg/Ml 1 Ml Carp\Vial) 4 mg IV NOW STA Stop: 11/05/24 19:57 Last Admin: 11/05/24 20:09 Dose: 4 mg Documented By: ERIS Ondansetron HCl (Ondansetron Inj 2 Mg/Ml 2 Ml Vial) 4 mg IV NOW STA Stop: 11/05/24 16:06 Last Admin: 11/05/24 16:17 Dose: 4 mg Documented By: SKINNY Imaging Data Radiologist's Impression: Chest X-Ray 11/05/24 15:57 Chest radiograph, one view History: Chest pain Comparison: None Findings: Single AP view of the chest performed. No focal consolidation or pleural effusion. No pneumothorax. The cardiomediastinal silhouette is within normal limits. Normal pulmonary vascularity. No evidence for lymphadenopathy. No visualized bony or soft tissue abnormality. Impression: No acute process. There is a large esophageal hiatal hernia, which is gas-filled. Electronically signed by Jackson Pacheco 11-05-2024 4:42 PM Abdomen/Pelvis CT 11/05/24 16:05 EXAMINATION: CT of the abdomen and pelvis performed after the administration of IV contrast TECHNIQUE: Helical CT images from the lung bases through the symphysis pubis were obtained with contrast. Coronal and sagittal reformatted images were generated at a workstation for further assessment. Dose reduction techniques were achieved by using automatic exposure control and/or adjustment of mA and/or kV according to patient size and/or use of iterative reconstruction technique. COMPARISON: None HISTORY: Abdominal pain FINDINGS: Lower chest: No consolidation. No pleural effusion or pneumothorax. Liver: No suspicious liver lesions. Portal veins appear patent. Gallbladder: No gallstones. No evidence of acute cholecystitis. Spleen: Normal size. Pancreas: No suspicious pancreatic lesions. The pancreatic duct is not dilated. Adrenal glands: No adrenal nodules. Kidneys: No hydronephrosis or obstructing renal stones. Bladder / Pelvic organs: Unremarkable. Bowel: No bowel obstruction. No abnormal bowel wall thickening. The appendix is unremarkable. Similar moderate to large esophageal hiatal hernia, which is fluid-filled. The left colon appears decompressed, with minimal stool. No left lower quadrant inflammatory changes. Lymph nodes: No retroperitoneal, mesenteric, or pelvic lymphadenopathy. Peritoneum / Retroperitoneum: No free fluid or air within the abdomen. Vessels: No infrarenal aortic aneurysm. Bones and soft tissues: No suspicious lesion in the bones. IMPRESSION: No acute findings in the abdomen or pelvis. Persistent moderate to large esophageal hiatal hernia. Electronically signed by Jackson Pacheco 11-05-2024 5:25 PM Discharge Plan Visit Data Chief Complaint: Chest Pain Stated Complaint: ABD AND CHEST PAIN ED Provider: Aretha Lopez Discharge Problem: Large hiatal hernia, Intractable abdominal pain Forms [facility] Pres[facility] Prescriptions: No Action rosuvastatin 5 mg tablet 5 mg PO QAM ferrous sulfate 324 mg (65 mg iron) tablet,delayed release (DR/EC) 324 mg PO BID Qty: 60 2RF Referrals Referrals: Jose Albrecht MD [Primary Care Provider] -
--- NOTE | 2024-11-05 17:56 | Electrocardiogram Report ---
Test Reason : Blood Pressure : */* mmHG Vent. Rate : 83 BPM Atrial Rate : 83 BPM P-R Int : 166 ms QRS Dur : 134 ms QT Int : 384 ms P-R-T Axes : 36 -32 13 degrees QTcB Int : 451 ms Normal sinus rhythm Left axis deviation Right bundle branch block Abnormal ECG When compared with ECG of 03-Feb-2021 11:32, QRS axis Shifted left Confirmed by Jackson Ogden ([id number]) on 11/05/2024 5:56:17 PM Referred By: Confirmed By: Jackson Ogden
[2024-11-05] MEDS: PANTOprazole 40 MG/10 ML SYR IV ONE (18:26)
[2024-11-05] MEDS: fentaNYL citrate PF 100 MCG/2 ML VIAL IV STA (18:27)
[2024-11-05 19:01] LABS: Appearance Urine Clear (Clear); Bilirubin Urine Negative (Negative); Blood Urine Negative (Negative); Color Urine Yellow; Glucose Urine UA Negative (Negative); Ketones Urine Trace (Negative); Leukocyte Esterase Urine Negative (Negative); Nitrite Urine Negative (Negative); Protein Urine Negative (Negative); Specific Gravity Urine 1.021 (1.000-1.030); Urobilinogen Urine Negative (Negative); pH Urine 5.5 (4.5-7.5)
[2024-11-05] MEDS: MoRPHine SULFATE 4 MG/ML 1 ML CARP\\VIAL IV STA (20:09)
--- NOTE | 2024-11-05 21:19 | Surgery Consultation ---
<Statement entered by Kylee Ho DO - 11/06/24 12:03> I have discussed this case with the surgical PA and I agree with this plan Date of Consultation November 05, 2024 Assessment & Plan (1) Large hiatal hernia: At the request of the emergency room physician I evaluated the patient in room B3. Surgical recommendations are as follows: Patient does have a large hiatal hernia that may be accounting for his current symptomatology I discussed with my attending physician, Dr. Cooper and a large hiatal hernia of this nature is not something that she would typically repair surgically and something of this nature would need to be referred to a surgeon who specializes in this type of repair I do suspect that the patient may require GI evaluation prior to undergoing surgical intervention with studies such as a barium swallow or EGD but the need for these studies should be discussed with the surgeon who would be attempting to repair this hernia. As the patient does report coughing that wakes him up from sleep or cough in the morning may be beneficial for him to elevate his head of bed to try to decrease the risk of any aspiration events. The patient would also benefit from a daily antacid If the patient's symptomatology continues without any relief of his symptoms, consideration be given to placing an NG tube. At the time of my interview the patient was nontoxic-appearing. He was normotensive without tachycardia or fever he was noted to be afebrile. Although he did have slight elevation of his white blood cell count his lactic acid level was normal. I discussed my recommendations with the admitting service History of Present Illness Reason for Consultation: Hiatal hernia History of Present Illness This is a 69-year-old male who presented to the emergency department secondary to abdominal/chest pain. Patient says that approximate 1-2 times per month he gets pain that that originates in his stomach/upper abdomen that radiates substernally and into his left shoulder. He says that this pain comes randomly and usually resolves in 1 to 2 hours. He says it is not really related to meals. He does note that this pain occurred today and was somewhat worse than usual and did not resolve in the usual time so he presented to the emergency department. He denies any fevers, shakes, or chills. He denies any nausea or vomiting. He denies any weight loss. He notes his bowels have been moving normally. The patient does report a history of GERD and his notes that he will often wake up in the middle of the night coughing. She also notes that he has more of a cough in the morning. Patient reports that he has never had a GI evaluation in the past. Upon presentation to the emergency department today the patient has had labs and imaging which I independent reviewed. Chest x-ray showed patient had a large hiatal hernia. A CT scan of the abdomen pelvis was performed and this showed no acute findings in the abdomen or pelvis but the patient was noted to have a large esophageal hiatal hernia. There is no pneumoperitoneum noted on this study. Labs included a CBC with a white blood cell count was elevated 13.1. Hemoglobin and hematocrit as well as the platelet count were normal. Coagulation studies were normal. Chemistry profile showed sodium and potassium as well as the BUN and creatinine were normal. He did have a lactic acid level that was not elevated 1.7. His LFTs and lipase were not elevated and a urinalysis was not indicative of infection. At the time of my interview he was resting in bed and he was in no distress. Allergies Allergy/AdvReac Type Severity Reaction Status Date / Time No Known Drug Allergies Allergy Unknown NKDA Verified 11/05/24 18:31 Home Medications Medication Instructions Recorded Confirmed Type rosuvastatin 5 mg tablet 5 mg PO QAM 02/03/21 11/05/24 History ferrous sulfate 324 mg (65 mg 324 mg PO BID #60 tabs 02/07/21 11/05/24 Rx iron) tablet,delayed release Patient History Surgical History History of inguinal hernia repair H/O hemorrhoidectomy History of colonoscopy History of esophagogastroduodenoscopy (EGD) Family History Father Coronary heart disease Social History Smoking Status: Never smoker Second Hand Exposure: No; Do You Dip or Chew Tobacco: No; Hx Alcohol Use: Yes Alcohol type: beer Alcohol Intake Frequency: 2-4 x/Month Hx Substance Use: No Preferred Language: Greenlandic Communication Ability: Effective Auriculotherapist Required: No Beliefs That Will Affect Care: None Current Living Situation: Spouse Feels Safe at Home: Yes Assistive Devices: None Review of Systems Review of Systems: All systems reviewed & are unremarkable except as noted in HPI & below Physical Exam Constitutional: WD/WN, vitals as above Eyes: no conjunctival abnormality ENMT: Ears: no hearing impairment and no external ear abnormality Mouth: no oropharynx abnormality Neck: trachea midline Respiratory: normal respiratory effort; no respiratory distress and no labored breathing Cardiovascular: Rate/Rhythm: regular rate and regular rhythm Gastrointestinal (Abdomen): Abdomen is soft and nondistended. There is only slight tenderness to palpation in the epigastric and upper abdomen. There is no rebound tenderness or guarding Musculoskeletal: No gross orthopedic abnormalities Skin: no rashes Neurologic: moves all extremities Psychiatric: A+Ox3, euthymic affect Results & Data Vital Signs (Past 12 Hours) Vital Signs Temp Pulse Pulse Resp BP BP Pulse Ox 11/05/24 20:23 88 11/05/24 20:12 101 H 18 160/97 H 94 11/05/24 19:21 66 17 154/91 H 96 11/05/24 18:31 162/113 H 11/05/24 18:00 67 18 94 11/05/24 16:26 85 11/05/24 16:15 11/05/24 15:53 36 C L 83 20 186/89 H 95 O2 Del Method 11/05/24 20:23 11/05/24 20:12 Room Air 11/05/24 19:21 Room Air 11/05/24 18:31 11/05/24 18:00 Room Air 11/05/24 16:26 11/05/24 16:15 Room Air 11/05/24 15:53 Room Air PG Care Time/CCT Total # of Minutes Spent Total Time Spent with Patient: Total time spent is greater than 50% in coordination of care (as documented) at patient's floor/unit and/or counseling patient: Coding Level of Care Code 74705 INT INP/OBS CARE 3/75MIN Diagnoses Large hiatal hernia K44.9
[2024-11-05] MEDS ORDERED: ACETAMINOPHEN 325 MG TAB PO PRN (21:40)
[2024-11-05] MEDS ORDERED: ALUMINUM/MAGNESIUM SUSP 30 ML UDC PO PRN (21:40)
[2024-11-05] MEDS ORDERED: POLYETHYLENE (MIRALAX) 17 GM PACK PO PRN (21:40)
[2024-11-05] MEDS ORDERED: ONDANSETRON INJ 2 MG/ML 2 ML VIAL IV PRN (21:40)
--- NOTE | 2024-11-05 21:56 | History & Physical Report ---
Date of Service November 05, 2024 Assessment & Plan (1) Intractable abdominal pain: (2) Large hiatal hernia: Plan Patient is a 69-year-old male with past medical history of iron deficiency anemia on iron tablets, hyperlipidemia, large hiatal hernia presented to the hospital with acute onset of abdominal pain after food intake. Abdominal pain/chest pain, likely secondary to GERD Large hiatal hernia Patient presented to the hospital with acute onset of abdominal pain after food intake; similar episodes several times in the last 1 month WBC shows mild leukocytosis CT abdomen and pelvis showing large hiatal hernia. Last endoscopy in January 2021 showed large hiatal hernia as well. EKG personally reviewed; normal sinus rhythm with right bundle branch block; no ST or T wave changes High sensitive troponin negative Suspect patient's symptoms are related with GERD; will start on Protonix IV for now with plan to switch over to p.o. Given the severity of pain; will consult GI for possible endoscopy. N.p.o. with ice chips Chronic conditions; Iron deficiency anemia; hemoglobin on presentation of 15; will obtain ferritin. Frequency of iron tablet could be reduced or potentially stop. Might be contributing to GERD symptoms Hyperlipidemia; continue on rosuvastatin Full code DVT prophylaxis heparin Time spent evaluating patient, direct bedside care, chart review, placing orders, interpretation of diagnostic studies, discussion with consultants, patient, and family members, as well as other required patient management activities is 60 minutes Please note the above document was generated using voice recognition software. It may contain grammatical, syntax or spelling errors. Any formal questions or concerns about the content, text or information contained within the body of this dictation should be directly addressed to the provider for clarification History of Present Illness Chief Complaint: Abdominal pain for 1 day Primary Care Provider: Jose Albrecht MD History obtained from chart review and interview with the patient Past medical history of hyperlipidemia, iron deficiency anemia, GERD Patient presented to the hospital with acute onset of abdominal pain after eating lunch; started in epigastric region with radiation to shoulder. He reports similar pain in the past as well which is always associated with food intake. He reports that the symptoms usually will last for 1 to 2 hours and will subside. However, patient's pain persisted today which prompted him to come to the ED. Patient was last hospitalized in January 2021 for iron deficiency anemia. He underwent endoscopy which showed large hiatal hernia. Patient currently takes iron tablets and rosuvastatin; he is not on ynxr-tid-lzebyff medication. On presentation to the ED, patient was normotensive, afebrile and saturating well on room air. WBC revealed mild leukocytosis Chest x-ray showed large esophageal hiatal hernia which is gas-filled. CT abdomen and pelvis also showed large hiatal hernia; no other acute finding Allergies Allergy/AdvReac Type Severity Reaction Status Date / Time No Known Drug Allergies Allergy Unknown NKDA Verified 11/05/24 18:31 Home Medications Medication Instructions Recorded Confirmed Type rosuvastatin 5 mg tablet 5 mg PO QAM 02/03/21 11/05/24 History ferrous sulfate 324 mg (65 mg 324 mg PO BID #60 tabs 02/07/21 11/05/24 Rx iron) tablet,delayed release Past Med/Surg History Problem List Intractable abdominal pain (Acute) Large hiatal hernia (Acute) Encounter for pre-operative examination Symptomatic anemia (Acute) DVT (deep venous thrombosis) (Acute) MATIAS (dyspnea on exertion) (Acute) GIB (gastrointestinal bleeding) (Acute) Pulmonary nodule Deep vein thrombosis (DVT) of right lower extremity Symptomatic anemia Anemia HLD (hyperlipidemia) GERD (gastroesophageal reflux disease) Surgical History History of inguinal hernia repair H/O hemorrhoidectomy History of colonoscopy History of esophagogastroduodenoscopy (EGD) Family History Father Coronary heart disease Social History Smoking Status: Never smoker Second Hand Exposure: No; Do You Dip or Chew Tobacco: No; Hx Alcohol Use: Yes Alcohol type: beer Alcohol Intake Frequency: 2-4 x/Month Hx Substance Use: No Preferred Language: French Communication Ability: Effective Sewing Machine Assembler Required: No Beliefs That Will Affect Care: None Current Living Situation: Spouse Feels Safe at Home: Yes Assistive Devices: None Review of Systems Review of Systems: All systems reviewed & are unremarkable except as noted in Subjective Physical Exam Physical Exam: Constitutional: Alert oriented x 3; not in distress. Respiratory: normal respiratory effort, lungs clear to auscultation, no wheeze, rales, rhonchi. Normal insp/exp effort, no accessory muscle use Cardiovascular: RRR, no murmur, no edema Vessels: no JVD or carotid bruit Chest: normal inspection of chest Abdomen: Mild tenderness in epigastric region Skin: no rashes, warm and dry normal turgor Neurologic: PERRL, EOMI, accommodation nl, no face palsy, no dysarthria CN's II- XI intact bilaterally and moves all extremities Results & Data Results & Data Vital Signs (Past 12 Hours) Vital Signs Temp Pulse Pulse Resp BP BP Pulse Ox 11/05/24 20:23 88 11/05/24 20:12 101 H 18 160/97 H 94 11/05/24 19:21 66 17 154/91 H 96 11/05/24 18:31 162/113 H 11/05/24 18:00 67 18 94 11/05/24 16:26 85 11/05/24 16:15 11/05/24 15:53 36 C L 83 20 186/89 H 95 O2 Del Method 11/05/24 20:23 11/05/24 20:12 Room Air 11/05/24 19:21 Room Air 11/05/24 18:31 11/05/24 18:00 Room Air 11/05/24 16:26 11/05/24 16:15 Room Air 11/05/24 15:53 Room Air
[2024-11-05] MEDS: ALUMINUM/MAGNESIUM SUSP 30 ML UDC PO STA (22:30)
--- OUTSIDE RECORDS SUMMARY | 2024-11-06 00:46 | External Medical Summary ---
Author Name Unknown Address Unknown Organization [id number]:[facility] [address] [place] [address] Laboratory Report Ordering Provider Test Date Status EAMON COLLIER 10/27/2024 10:30:20 Final Observation Date Value Abnormality Reference (Units ) Status WBC, Total 10/27/2024 10:30:20 5.72 4.00-10.8 0 (K/uL) Final RBC 10/27/2024 10:30:20 4.94 4.50-5.25 (M/uL) Final Hemoglobin 10/27/2024 10:30:20 15.0 14.0-16.8 (g/dL) Final HCT 10/27/2024 10:30:20 45.5 40.0-48.4 (%) Final MCV 10/27/2024 10:30:20 92.1 82.0-99.5 (fL) Final MCH 10/27/2024 10:30:20 30.4 27.0-34.0 (pg) Final MCHC 10/27/2024 10:30:20 33.0 32.0-36.0 (g/dL) Final RDW 10/27/2024 10:30:20 13.0 11.5-15.5 (%) Final Platelets 10/27/2024 10:30:20 265 140-400 (K /uL) Final MPV 10/27/2024 10:30:20 10.1 6.6-11.1 ( fL) Final Performing Location [facility] [place] [address]
--- OUTSIDE RECORDS SUMMARY | 2024-11-06 00:46 | External Medical Summary ---
Author Name Unknown Address Unknown Organization K09:[facility] [place] [address] Laboratory Report Ordering Provider Test Date Status EAMON COLLIER 10/27/2024 10:30:20 Final Observation Date Value Abnormality Reference (Units ) Status SYNC LEUKOCYTES IN BLOOD BY AUTOMATED COUNT 10/27/2024 10:30:20 5.72 4.00-10.80 (K/uL) Final Segs 10/27/2024 10:30:20 53.2 40.0-75.0 (%) Final Lymphs % 10/27/2024 10:30:20 32.3 18.0-42.0 (%) Final Monos 10/27/2024 10:30:20 9.6 1.0-11.0 (%) Final Eosinophils 10/27/2024 10:30:20 4.7 0.0-6.0 (%) Final Basos 10/27/2024 10:30:20 0.2 0.0-2.0 (%) Final Absolute Segs 10/27/2024 10:30:20 3.04 1.80-7.70 (K/uL) Final Lymphs, absolute 10/27/2024 10:30:20 1.85 1.00-4.80 (K/ul) Final Monos, Abs 10/27/2024 10:30:20 0.55 0.00-1.10 (K/uL) Final Eos, Abs 10/27/2024 10:30:20 0.27 0.00-0.70 (K/uL) Final Basos, Abs 10/27/2024 10:30:20 0.01 0.00-0.20 (K/uL) Final Performing Location [facility] [address]
--- OUTSIDE RECORDS SUMMARY | 2024-11-06 00:46 | External Medical Summary ---
Author Name Unknown Address Unknown Organization K01:[facility] [place] - [address] [place] [address] Laboratory Report Ordering Provider Test Date Status EAMON COLLIER 10/27/2024 10:30:20 Final Observation Date Value Abnormality Reference (Units ) Status Iron 10/27/2024 10:30:20 157 45-176 (ug /dL) Final Iron-binding capacity 10/27/2024 10:30:20 369 250-425 (ug/dL) Final Transferrin Sat % 10/27/2024 10:30:20 43 15 -55 (%) Final Performing Location [facility] [place] - [address] [place] [address]
--- OUTSIDE RECORDS SUMMARY | 2024-11-06 00:46 | External Medical Summary | Summary of Care ---
Author Name Unknown Organization [facility] Address [address] [facility] [place] [address] Phone [phone] Care Team Providers Care Apparel Embroidery Digitizer Name Role Phone Jose Albrecht MD Primary Care Provider [phone] Reason for Visit * Reason Comments Outpatient Testing Encounter Details Date Type Department Care Team (Late st Contact Info) Description 10/27/2024 10:30 AM EST Laboratory Laboratory [facility] [place] [address] [place] [phone] [facility] [address] [place] [address] Iron deficiency anemia due to chronic blood loss Allergies No known active allergiesdocumented as of this encounter (statuses as of 10/27/2024) Medications Rosuvastatin Calcium 5 MG Oral Tablet (Crestor)Indicat ions:Hyperlipide derrick, unspecified TAKE 1 TABLET BY MOUTH EVERY DAY IN THE MORNING 90 Tablet 1 03/27/2024 Active Ferrous Sulfate 324 (65 Fe) MG Oral Tablet Delayed ReleaseIndicatio ns:Iron deficiency anemia due to chronic blood loss TAKE 1 TABLET BY MOUTH TWICE A DAY 180 Tablet 1 08/10/2024 Active Hospital, Clinic, or Other Facility Administered Medication Ordered Dose Route Frequency Start Date End Date Status Albuterol Sulfate (Proventil) (2.5 MG/3ML) 0.083% inhalation solution 2.5 mgIndications:Dyspnea on exertion 2.5 mg NEBULIZER ONCE PRN 03/23/2024 03/23/2025 Active documented as of this encounter (statuses as of 10/27/2024) Active Problems Problem Noted Date Diagnosed Date Iron deficiency anemia due to chronic blood loss 03/15/2021 Dyslipidemia, goal LDL below 130 06/13/2015 GERD (gastroesophageal reflux disease) 5 Thrombosed hemorrhoids 10/21/2013 Pulsatile tinnitus 04/20/2008 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/04/2007 Overview (03/13/2007): repeat colonoscopy in 5 years Rosacea 09/05/2004 documented as of this encounter (statuses as of 10/27/2024) Resolved Problems Problem Noted Date Diagnosed Date Resolved Date Acute deep vein thrombosis ( DVT) of distal vein of lower extremity 05/05/2021 06/19/2021 Shortness of breath 02/03/2021 02/04/20 21 Premature ejaculation 06/13/20152018 ACUTE SINUSITIS NOS 10/18/2004 11/04/19 09 Overview (11/04/2008): Resolved per Benign Acute Dxs Protocol #3 Impacted cerumen 09/05/2004 11/13/2018 Hearing loss 09/05/2004 11/13/2018 ACUTE URI NOS 09/05/2004 11/04/2008 Overview (11/04/2008): Resolved per Benign Acute Dxs Protocol #3 documented as of this encounter (statuses as of 10/27/2024) Immunizations Name Administration Dates Next Due COVID-19 mRNA, LNP-s, No Pre serve, 2-Dose Series (Path Logic) 12/05/2020,11/14/2020 Seasonal Influenza, Quadrivalent Hd (Fluzone Hd) 06/19/2021 Seasonal Influenza, Quadrivalent, No Preserve, I M 2020 TD - Tetanus/Diptheria (ADULT) 07/09/2007 TD, Preservative Free 03/23/2014 TDAP (age 10 and older)(Boostrix) 01/05/2019 TDAP, Age 7 and older, IM (Adacel) 07/09/2007 documented as of this encounter Social History Tobacco Use Types Packs/Day Years Used Date Smoking Tobacco: Never Smokeless Tobacco: Never Alcohol Use Standard Drinks/Week Comments Yes 0 (1 standard drink = 0.6 oz pur e alcohol) 1 per day-beer PHQ-2 Answer Date Recorded PHQ Adult Total Score 0 11/10/2020 Hunger Vital Sign Answer Date Recorded Within the past 12 months, y ou worried that your food would run out before you got the money to buy more. Never true 03/21/20 23 Within the past 12 months, t he food you bought just didn't last and you didn't have money to get more. Never true 03/21/2023 Childcare Answer Date Recorded Do you feel overwhelmed with taking care of a child, family member or friend? No 03/21/2023 Does your family need help f inding childcare? (Household - for ages 0-17 years) Not on file 03/21/2023 Clothing Answer Date Recorded Have you been unable to get clothing when it was really needed? No 03/21/2023 Is your family able to get c lothes or diapers when needed? (Household - for ages 0-17 years) Not on file 03/21/2023 Personal Safety Answer Date Recorded Do you feel unsafe or have concerns for your saf ety? No 03/21/2023 Do you have concerns for you r family's safety? (Household - for ages 0-17 years) Not on file 03/21/2023 Utilities Answer Date Recorded Do you have trouble paying y our heating, water, or electric bill? (Adult - for ages 18 years and over) Not on file 03/23/2024 Is your family able to pay t he heat, water, or electric bill? (Household - for ages 0-17 years) Not on file 03/23/2024 Does your family have access to good internet? (Household - for ages 0-17 years) Not on file 03/23/2024 Employment Status Answer Date Recorded Are you unemployed or without regular income? No 03/21/2023 Does the household have a re gular source of income? (Household - for ages 0-17 years) Not on file 03/21/2023 Social Connections Answer Date Recorded How often do you feel lonely or isolated from those around you? (Adult - for ages 18 years and over) Not on file 03/23/2024 Financial Resource Strain Answer Date R ecorded Do you have any trouble payi ng for your medications, or do you think you might in the future? No 03/21/2023 Does your family have troubl e paying for medicine? (Household - for ages 0-17 years) Not on file 03/21/2023 Transportation Needs Answer Date Record ed READ ONLY Do you have troubl e getting a ride to medical visits or work? Never True 03/21/2023 Does your family have a hard time getting a ride to doctors visits? (Household - for ages 0-17 years) Not on file 03/21/2023 Has lack of transportation k ept you from medical appointments, meetings, work, or from getting things needed for daily living? Check all that apply. (Adult - for ages 18 years and over) Not on file 03/21/2023 Do you (or your family) have trouble finding or paying for a ride (transportation)? (Household - for ages 0-17 years) Not on file 03/21/2023 Housing Stability Answer Date Recorded Do you currently live in a s helter or have no steady place to sleep at night? No 03/21/2023 READ ONLY Do you think you a re at risk of becoming homeless? No 03/21/2023 Does your family worry about paying for your home or becoming homeless? (Household - for ages 0-17 years) Not on file 0 03/21/2023 Are you homeless or worried that you might be in the future? (Adult - for ages 18 years and over) Not on file Are you (or your family) tanna eless or worried that you might be in the future? (Household - for ages 0-17 years) Not on file Food Insecurity Answer Date Recorded Do you need food for this week? No 03/21/2023 Are you able to get enough f ood for your family? (Household - for ages 0-17 years) Not on file 03/21/2023 Does your family need food t his week? (Household - for ages 0-17 years) Not on file 03/21/2023 Do you always have enough fo od for your family? 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 Not on file Not on file Not on file documented as of this encounter Plan of Treatment Upcoming Encounters Date Type Department Care Team (Late st Contact Info) Description 01/21/2025 2:00 PM EDT Office Visit Hematology/Oncology [facility] [place] [address] [facility] [place] [phone] [facility]oro [facility] [address] [facility] [place] [address] 03/25/2025 8:20 AM EDT Office Visit [facility] [place] [address] [place] [phone] Jose Albrecht MD [address] [facility] [place] [phone] Pending Results Name Type Priority Associated Diagnoses Date /Time IRON SCREEN, INCLUDING TIBC Lab STAT Iron deficiency anemia due to chronic blood loss 10/27/2024 10:30 AM EST FERRITIN Lab STAT Iron deficiency anemia due to chronic blood loss 10/27/2024 10:30 AM EST Scheduled Procedures Name Priority Associated Diagnoses Date/Ti me COLONOSCOPY FLEXIBLE PROXIMAL DIAGNOSTIC Recall Hx of colonic polyp Health Maintenance Due Date Last Done Comments Cologuard 2000 Fecal Occult Blood Test 2000 Sigmoidoscopy 2000 Pneumococcal Vaccine: 50+ Years (1 of 1 - PCV) 2005 Zoster Vaccines (1 of 2) 2005 Adult Wellness Visit 2021 Depression Screening 11/10/2021 11/10/2020 COVID-19 Vaccine ( - season) 2024 12/05/2020, 11/14/2020 Influenza Vaccine (FLU shot) (#1) 2024 06/19/2021, 07/28/2020, 2020 Colonoscopy 02/06/2026 02/06/2021, 01/15, 11/25/2017, Additional history exists Colorectal Cancer Screening 02/06/2026 Diabetes Screening 04/17/2027 04/17/2024, 0 04/29/2023, 10/08/2022, Additional history exists DTap/Tdap Vaccines (4 - Td or Tdap) 01/05/2029 01/05/2019, 03/23/2014, 07/09/2007, Additional history exists Lipid Panel 04/17/2029 04/17/2024, 04/16, 10/08/2022, Additional history exists RETIRED - COLONOSCOPY-EVERY 5 YRS AGES 18-100 Discontinued 02/06/2021, 02/06/2021, 11/25/2017, Additional history exists HPV (Gardasil) Vaccine Aged Out No lo nger eligible based on patient's age to complete this topic Hepatitis B Vaccine Aged Out No longe r eligible based on patient's age to complete this topic MENINGOCOCCAL (MENACTRA/MENVEO) Aged Out No longer eligible based on patient's age to complete this topic documented as of this encounter Medical Devices Not on filedocumented as of this encounter Procedures Procedure Name Priority Date/Time Associated Diagnosis Comments DIFFERENTIAL, AUTOMATED STAT 10/27/2024 10:30 AM EST Iron deficiency anemia due to chronic blood loss CBC STAT 10/27/2024 10:30 AM EST Iron deficiency anemia due to chronic blood loss CBC STAT 10/27/2024 10:30 AM EST Iron deficiency anemia due to chronic blood loss documented in this encounter Results * DIFFERENTIAL, AUTOMATED (10/27/2024 10:30 AM EST) WBC 5.72 4.00 - 10.80 K/uL 10/27/2024 10:34 AM EST [facility] Neutrophils % 53.2 40.0 - 75.0 % 10/27/2024 10:34 AM EST [facility]-02 Lymphocytes % 32.3 18.0 - 42.0 % 10/27/2024 10:34 AM [facility] 56-02 Monocytes % 9.6 1.0 - 11.0 % 10/27/2024 10:34 AM [facility] 56-02 Eosinophils % 4.7 0.0 - 6.0 % 10/27/2024 10:34 AM [facility] 56-02 Basophils % 0.2 0.0 - 2.0 % 10/27/2024 10:34 AM [facility] 56-02 Absolute Neutrophils 3.04 1.80 - 7.70 K/uL 10/27/2024 10:34 AM [facility] 56-02 Absolute Lymphocytes 1.85 1.00 - 4.80 K/ul 10/27/2024 10:34 AM [facility] 56-02 Absolute Monocytes 0.55 0.00 - 1.10 K/uL 10/27/2024 10:34 AM [facility] 56-02 Absolute Eosinophils 0.27 0.00 - 0.70 K/uL 10/27/2024 10:34 AM [facility] 56-02 Absolute Basophils 0.01 0.00 - 0.20 K/uL 10/27/2024 10:34 AM [facility] 56-02 Blood Venous blood specimen / Unknown Venipuncture / Unknown 10/27/2024 10:30 AM EST 10/27/2024 10:30 AM EST us [facility] BLOOD ORDERABLES Fi nal Result [facility] [address] [place] [address] * CBC (10/27/2024 10:30 AM EST) WBC 5.72 4.00 - 10.80 K/uL 10/27/2024 10:34 AM [facility] 56-02 RBC 4.94 4.50 - 5.25 M/uL 10/27/2024 10:34 AM [facility] 56-02 HGB 15.0 14.0 - 16.8 g/dL 10/27/2024 10:34 AM [facility] 56-02 HCT 45.5 40.0 - 48.4 % 10/27/2024 10:34 AM [facility] 56- MCV 92.1 82.0 - 99.5 fL 10/27/2024 10:34 AM [facility] 56-02 MCH 30.4 27.0 - 34.0 pg 10/27/2024 10:34 AM [facility] 56- MCHC 33.0 32.0 - 36.0 g/dL 10/27/2024 10:34 AM [facility] 56- RDW 13.0 11.5 - 15.5 % 10/27/2024 10:34 AM [facility] 56- PLT 265 140 - 400 K/uL 10/27/2024 10:34 AM [facility] 56- MPV 10.1 6.6 - 11.1 fL 10/27/2024 10:34 AM [facility] 56-02 Blood Venous blood specimen / Unknown Venipuncture / Unknown 10/27/2024 10:30 AM EST 10/27/2024 10:30 AM EST us [facility] BLOOD ORDERABLES Fi nal Result [facility] [address]- [address] [place] [address] documented in this encounter Visit Diagnoses Diagnosis Iron deficiency anemia due to chronic blood loss Iron deficiency anemia secondary to blood loss (chronic) documented in this encounter Care Teams Apparel Embroidery Digitizer Relationship Specialty Start Date End Date Jose Albrecht MD PCP - General 03/03/07 documented as of this encounter
--- OUTSIDE RECORDS SUMMARY | 2024-11-06 00:47 | External Medical Summary | Summary of Care ---
Author Name Unknown Organization [facility] Address [address] [facility] [address] Phone [phone] Care Team Providers Care Business Developer Name Role Phone Jose Albrecht MD Primary Care Provider +1- [phone] Reason for Visit * Reason Onset Date Comments Health Maintenance 06/11/2024 Encounter Details Date Type Department Care Team (Late st Contact Info) Description 06/11/2024 Telephone [facility] [address] [place] [facility] [place] [address] Jose Albrecht MD [address] [place] [address] Health Maintenance Allergies No known active allergiesdocumented as of this encounter (statuses as of 06/11/2024) Medications Medication Sig Dispensed Refills Start Date End Date Status Ferrous Sulfate 324 (65 Fe) MG Oral Tablet Delayed ReleaseIndications:Ir on deficiency anemia due to chronic blood loss TAKE 1 TABLET BY MOUTH TWICE A DAY 180 Tablet 12/16/2023 Active Rosuvastatin Calcium 5 MG Oral Tablet (Crestor)Indications: Hyperlipidemia, unspecified TAKE 1 TABLET BY MOUTH EVERY DAY IN THE MORNING 90 Tablet 1 03/27/2024 Active Hospital, Clinic, or Other Facility Administered Medication Ordered Dose Route Frequency Start Date End Date Status Albuterol Sulfate (Proventil) (2.5 MG/3ML) 0.083% inhalation solution 2.5 mgIndications:Dyspnea on exertion 2.5 mg NEBULIZER ONCE PRN 03/23/2024 03/23/2025 Active documented as of this encounter (statuses as of 06/11/2024) Active Problems Problem Noted Date Diagnosed Date Iron deficiency anemia due to chronic blood loss 03/15/2021 Dyslipidemia, goal LDL below 130 06/13/2015 GERD (gastroesophageal reflux disease) 5 Thrombosed hemorrhoids 10/21/2013 Pulsatile tinnitus 04/20/2008 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/04/2007 Overview: repeat colonoscopy in 5 years Rosacea 09/05/2004 documented as of this encounter (statuses as of 06/11/2024) Resolved Problems Problem Noted Date Diagnosed Date Resolved Date Acute deep vein thrombosis ( DVT) of distal vein of lower extremity 05/05/2021 06/19/2021 Shortness of breath 02/03/2021 02/04/20 21 Premature ejaculation 06/13/20152018 ACUTE SINUSITIS NOS 10/18/2004 11/04/19 09 Overview: Resolved per Benign Acute Dxs Protocol #3 Impacted cerumen 09/05/2004 11/13/2018 Hearing loss 09/05/2004 11/13/2018 ACUTE URI NOS 09/05/2004 11/04/2008 Overview: Resolved per Benign Acute Dxs Protocol #3 documented as of this encounter (statuses as of 06/11/2024) Immunizations Name Administration Dates Next Due COVID-19 mRNA, LNP-s, No Pre serve, 2-Dose Series (SmartestK12) 12/05/2020,11/14/2020 Seasonal Influenza, Quadrivalent Hd (Fluzone Hd) [...] Assigned at Male 03/21/2023 11:06 AM EDT Gender Identity Male 03/21/2023 11:06 AM EDT Sexual Orientation Straight 06/19/2021 8: 16 AM EDT Job Start Date Occupation Industry Not on file Not on file Not on file documented as of this encounter Miscellaneous Notes * Telephone Encounter - Maday Gutiérrez LPN - 06/11/2024 1:27 PM EDT Care Gaps Comprehensive Care Outreach Last Office/Telemedicine Visit: 03/23/2024 (in office), Visit date not found (telemedicine) Next Office Visit: 03/25/2025 Hemoglobin AIC Results: No results found for: "HEMOGLOBIN A1C" BP Readings from Last 1 Encounters: 03/23/24 120/78 Reviewed Health Maintenance below: Health Maintenance Topic Date Due Zoster Vaccines (1 of 2) Never done Pneumococcal Vaccine: 65+ Years (1 of 1 - PCV) Never done Adult Wellness Visit Never done Depression Screening 11/10/2021 Influenza Vaccine (FLU shot) (1) 05/17/2024 COVID-19 Vaccine (3 - season) 2024 Care Gap Outreach Action Taken: Outreach not indicated documented in this encounter Plan of Treatment Upcoming Encounters Date Type Department Care Team (Late st Contact Info) Description 06/19/2024 1:00 PM EDT Imaging Cardiac Studies, [facility] [address] [facility] [place] [address] 01/21/2025 2:00 PM EDT Office Visit [facility]ology[facility]On[facility] [address] [facility] [phone] Roro Jackson CRNP [address] [place] [address] 03/25/2025 8:20 AM EDT Office Visit [facility] [address] [facility] [phone] Jose Albrecht MD [address] [place] [address], [place] [id number] Scheduled Procedures Name Priority Associated Diagnoses Date/Ti me COLONOSCOPY FLEXIBLE PROXIMAL DIAGNOSTIC Recall Hx of colonic polyp Health Maintenance Due Date Last Done Comments Cologuard 2000 Fecal Occult Blood Test 2000 Sigmoidoscopy 2000 Zoster Vaccines (1 of 2) 2005 Pneumococcal Vaccine: 65+ Years (1 of 1 - PCV) 2020 Adult Wellness Visit 2021 Depression Screening 11/10/2021 11/10/2020 COVID-19 Vaccine (3 - season) 2024 12/05/2020, 11/14/2020 Influenza Vaccine [...] Not on filedocumented as of this encounter Care Teams Business Developer Relationship Specialty Start Date End Date Jose Albrecht MD [address] [place] [address], [place] [id number] PCP - General 03/03/07 documented as of this encounter
--- OUTSIDE RECORDS SUMMARY | 2024-11-06 00:47 | External Medical Summary ---
Author Name Unknown Address Unknown Organization [id number]:[facility] [place] - [address] [facility] [address] [place] [address] Laboratory Report Ordering Provider Test Date Status NANDOEAMON 10/27/2024 10:30:20 Final Observation Date Value Abnormality Reference (Units ) Status Ferritin 10/27/2024 10:30:20 66 30-400 (ng /mL) Final Performing Location LABORATORY C - [address] [place] [address]
--- OUTSIDE RECORDS SUMMARY | 2024-11-06 00:47 | External Medical Summary ---
Author Name Unknown Address Unknown Organization [id number][place] [place] [address] [place] [address] Laboratory Report Ordering Provider Test Date Status NANDOEAMON 07/20/2024 09:19:38 Final Observation Date Value Abnormality Reference (Units ) Status Ferritin 07/20/2024 09:19:38 55 30-400 (ng /mL) Final Performing Location [facility] - [address] [place] [address]
--- OUTSIDE RECORDS SUMMARY | 2024-11-06 00:47 | External Medical Summary ---
Author Name Unknown Address Unknown Organization [id number][place] [place] [address] [place] [address] Laboratory Report Ordering Provider Test Date Status EAMON COLLIER 07/20/2024 09:19:38 Final Observation Date Value Abnormality Reference (Units ) Status Iron 07/20/2024 09:19:38 112 45-176 (ug /dL) Final Iron-binding capacity 07/20/2024 09:19:38 391 250-425 (ug/dL) Final Transferrin Sat % 07/20/2024 09:19:38 29 15 -55 (%) Final Performing Location [facility] [place] [address] [place] [address]
--- OUTSIDE RECORDS SUMMARY | 2024-11-06 00:47 | External Medical Summary | Summary of Care ---
Author Name Unknown Organization [facility] Address [address] [facility] [place] [address] Phone [phone] Care Team Providers Care Gift Basket Packer Name Role Phone Jose Albrecht MD Primary Care Provider +1- [phone] Encounter Details Date Type Department Care Team (Late st Contact Info) Description 10/08/2024 Population Health External Data Unspecified Department Allergies No known active allergiesdocumented as of this encounter (statuses as of 10/08/2024) Medications Rosuvastatin Calcium 5 MG Oral Tablet [...] as of this encounter (statuses as of 10/08/2024) Active Problems Problem Noted Date Diagnosed Date Iron deficiency anemia due to chronic blood loss 03/15/2021 Dyslipidemia, goal LDL below 130 06/13/2015 GERD (gastroesophageal reflux disease) 5 Thrombosed hemorrhoids 10/21/2013 Pulsatile tinnitus 04/20/2008 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/04/2007 Overview (03/13/2007): repeat colonoscopy in 5 years Rosacea 09/05/2004 documented as of this encounter (statuses as of 10/08/2024) Resolved Problems Problem Noted Date Diagnosed Date [...] as of this encounter (statuses as of 10/08/2024) Immunizations Name Administration Dates Next Due COVID-19 mRNA, LNP-s, No Pre serve, 2-Dose Series ([employer]) 12/05/2020,11/14/2020 Seasonal Influenza, Quadrivalent Hd (Fluzone Hd) [...] 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 Not on file Not on file documented as of this encounter Plan of Treatment Upcoming Encounters Date Type Department Care Team (Late st Contact Info) Description 01/21/2025 2:00 PM EDT Office Visit Hematology/Oncology [facility] [place] [address] [place] [phone] Roro Jackson CRNP [address] [place] [address] 03/25/2025 8:20 AM EDT [facility] [address] [facility] [place] [address] Jose Albrecht MD [address] [facility] [place] [id number] Scheduled Procedures Name Priority Associated Diagnoses Date/Ti [...] filedocumented as of this encounter Care Teams Gift Basket Packer Relationship Specialty Start Date End Date Jose Albrecht MD PCP - General 03/03/07 documented as of this encounter
--- OUTSIDE RECORDS SUMMARY | 2024-11-06 00:47 | External Medical Summary ---
Author Name Unknown Address Unknown Organization [id number]:[facility] [place] [address] Laboratory Report Ordering Provider Test Date Status EAMON COLLIER 07/20/2024 09:19:38 Final Observation Date Value Abnormality Reference (Units ) Status SYNC LEUKOCYTES IN BLOOD BY AUTOMATED COUNT 07/20/2024 09:19:38 6.06 4.00-10.80 (K/uL) Final Segs 07/20/2024 09:19:38 53.5 40.0-75.0 (%) Final Lymphs % 07/20/2024 09:19:38 32.5 18.0-42.0 (%) Final Monos 07/20/2024 09:19:38 10.1 1.0-11.0 (%) Final Eosinophils 07/20/2024 09:19:38 3.6 0.0-6.0 (%) Final Basos 07/20/2024 09:19:38 0.3 0.0-2.0 (%) Final Absolute Segs 07/20/2024 09:19:38 3.24 1.80-7.70 (K/uL) Final Lymphs, absolute 07/20/2024 09:19:38 1.97 1.00-4.80 (K/ul) Final Monos, Abs 07/20/2024 09:19:38 0.61 0.00-1.10 (K/uL) Final Eos, Abs 07/20/2024 09:19:38 0.22 0.00-0.70 (K/uL) Final Basos, Abs 07/20/2024 09:19:38 0.02 0.00-0.20 (K/uL) Final Performing Location [facility] [place] [address]
--- OUTSIDE RECORDS SUMMARY | 2024-11-06 00:47 | External Medical Summary | Summary of Care ---
Author Name Unknown Organization [facility] Address [address] [facility] [place] [address] Phone [phone] Care Team Providers Care Correspondence School Teacher Name Role Phone Jose Albrecht MD Primary Care Provider +1- [phone] Reason for Visit * Reason Comments Outpatient Testing Encounter Details Date Type Department Care Team (Late st Contact Info) Description 07/20/2024 9:30 AM EST Laboratory Laboratory [facility] [place] [address] [place] [phone] [facility] [address] [place] [address] Iron deficiency anemia due to chronic blood loss Allergies No known active allergiesdocumented as of this encounter (statuses as of 07/20/2024) Medications Medication Sig Dispensed Refills Start Date [...] as of this encounter (statuses as of 07/20/2024) Active Problems Problem Noted Date Diagnosed Date Iron deficiency anemia due to chronic blood loss 03/15/2021 Dyslipidemia, goal LDL below 130 06/13/2015 GERD (gastroesophageal reflux disease) 5 Thrombosed hemorrhoids 10/21/2013 Pulsatile tinnitus 04/20/2008 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/04/2007 Overview: repeat colonoscopy in 5 years Rosacea 09/05/2004 documented as of this encounter (statuses as of 07/20/2024) Resolved Problems Problem Noted Date Diagnosed Date Resolved Date Acute deep vein thrombosis ( DVT) of distal vein of lower extremity 05/05/2021 06/19/2021 Shortness of breath 02/03/2021 02/04/20 Premature ejaculation 06/13/20152018 ACUTE SINUSITIS NOS 10/18/2004 11/04/19 09 Overview: Resolved per Benign Acute Dxs Protocol #3 Impacted cerumen 09/05/2004 11/13/2018 Hearing loss 09/05/2004 11/13/2018 ACUTE URI NOS 09/05/2004 11/04/2008 Overview: Resolved per Benign Acute Dxs Protocol #3 documented as of this encounter (statuses as of 07/20/2024) Immunizations Name Administration Dates Next Due COVID-19 mRNA, LNP-s, No Pre serve, 2-Dose Series (Pfizer) 12/05/2020,11/14/2020 Seasonal Influenza, Quadrivalent Hd (Fluzone Hd) [...] PM EDT Office Visit Hematology/Oncology [facility] [place] [address] [place] [phone] Roro Jackson CRNP [address] [place] [address] 03/25/2025 8:20 AM EDT Office Visit [facility] [address] [facility] [place] [address] Jose Albrecht MD [address] [facility] [place] [address] Pending Results Name Type Priority Associated Diagnoses Date /Time IRON SCREEN, INCLUDING TIBC Lab STAT Iron deficiency anemia due to chronic blood loss 07/20/2024 9:19 AM EST FERRITIN Lab STAT Iron deficiency anemia due to chronic blood loss 07/20/2024 9:19 AM EST Scheduled Procedures Name Priority Associated Diagnoses Date/Ti me COLONOSCOPY FLEXIBLE PROXIMAL DIAGNOSTIC Recall Hx of colonic polyp Health Maintenance Due Date Last Done Comments Cologuard 2000 Fecal Occult Blood Test 2000 Sigmoidoscopy 2000 Zoster Vaccines (1 of 2) 2005 Pneumococcal Vaccine: 65+ Years (1 of 1 - PCV) 2020 Adult Wellness Visit 2021 Depression Screening 11/10/2021 11/10/2020 COVID-19 Vaccine ( season) 2024 12/05/2020, 11/14/2020 Influenza Vaccine (FLU [...] Date/Time Associated Diagnosis Comments DIFFERENTIAL, AUTOMATED STAT 07/20/2024 9:19 AM EST Iron deficiency anemia due to chronic blood loss CBC STAT 07/20/2024 9:19 AM EST Iron deficiency anemia due to chronic blood loss CBC STAT 07/20/2024 9:19 AM EST Iron deficiency anemia due to chronic blood loss documented in this encounter Results * DIFFERENTIAL, AUTOMATED (07/20/2024 9:19 AM EST) WBC 6.06 4.00 - 10.80 K/uL 07/20/2024 9:26 AM EST [facility] 56-02 Neutrophils % 53.5 40.0 - 75.0 % 07/20/2024 9:26 AM EST [facility] 56-02 Lymphocytes % 32.5 18.0 - 42.0 % 07/20/2024 9:26 AM EST [facility] 56-02 Monocytes % 10.1 1.0 - 11.0 % 07/20/2024 9:26 AM EST [facility] 56-02 Eosinophils % 3.6 0.0 - 6.0 % 07/20/2024 9:26 AM [facility] 56- Basophils % 0.3 0.0 - 2.0 % 07/20/2024 9:26 AM [facility] 56- Absolute Neutrophils 3.24 1.80 - 7.70 K/uL 07/20/2024 9:26 AM [facility] 56- Absolute Lymphocytes 1.97 1.00 - 4.80 K/ul 07/20/2024 9:26 AM [facility] 56- Absolute Monocytes 0.61 0.00 - 1.10 K/uL 07/20/2024 9:26 AM [facility] 56- Absolute Eosinophils 0.22 0.00 - 0.70 K/uL 07/20/2024 9:26 AM [facility] 56- Absolute Basophils 0.02 0.00 - 0.20 K/uL 07/20/2024 9:26 AM [facility] 56 Blood Venous blood specimen / Unknown Venipuncture / Unknown 07/20/2024 9:19 AM EST 07/20/2024 9:19 AM EST [facility] BLOOD ORDER [facility] [address] [place] [address] * CBC (07/20/2024 9:19 AM EST) WBC 6.06 4.00 - 10.80 K/uL 07/20/2024 9:26 AM [facility] RBC 5.10 4.50 - 5.25 M/uL 07/20/2024 9:26 AM [facility] 56 HGB 15.3 14.0 - 16.8 g/dL 07/20/2024 9:26 AM [facility] 56 HCT 46.2 40.0 - 48.4 % 07/20/2024 9:26 AM [facility] 56 MCV 90.6 82.0 - 99.5 fL 07/20/2024 9:26 AM [facility] 56 MCH 30.0 27.0 - 34.0 pg 07/20/2024 9:26 AM [facility] 56- MCHC 33.1 32.0 - 36.0 g/dL 07/20/2024 9:26 AM [facility] 56- RDW 13.6 11.5 - 15.5 % 07/20/2024 9:26 AM [facility] 56- PLT 266 140 - 400 K/uL 07/20/2024 9:26 AM [facility] 56- MPV 10.1 6.6 - 11.1 fL 07/20/2024 9:26 AM [facility] 56- Blood Venous blood specimen / Unknown Venipuncture / Unknown 07/20/2024 9:19 AM EST 07/20/2024 9:19 AM EST [facility] BLOOD ORDER [facility] 56- [address] [place] [address] documented in this encounter Visit Diagnoses Diagnosis Iron deficiency anemia due to chronic blood loss Iron 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
--- OUTSIDE RECORDS SUMMARY | 2024-11-06 00:47 | External Medical Summary | Summary of Care ---
Author Name Unknown Organization [facility] Address [address] [facility] [place] [address] Phone [phone] Care Team Providers Care Char Dust Cleaner And Salvager Name Role Phone Jose Albrecht MD Primary Care Provider +1- [phone] Reason for Visit * Reason Comments eRx-Medication Refill Encounter Details Date Type Department Care Team (Late st Contact Info) Description 08/10/2024 Refill Hematology/Oncology [facility] [place] [address] [facility] [phone] Roro Jackson CRNP [address] [facility] [place] [address] Iron deficiency anemia due to chronic blood loss Allergies No known active allergiesdocumented as of this encounter (statuses as of 08/10/2024) Medications Rosuvastatin Calcium 5 MG Oral Tablet (Crestor)Indica tions:Hyperlipi demia, unspecified TAKE 1 TABLET BY MOUTH EVERY DAY IN THE MORNING 90 Tablet 1 4 Active Ferrous Sulfate 324 (65 Fe) MG Oral Tablet Delayed ReleaseIndicati ons:Iron deficiency anemia due to chronic blood loss TAKE 1 TABLET BY MOUTH TWICE A DAY 180 Tablet 1 4 Active Ferrous Sulfate 324 (65 Fe) MG Oral Tablet Delayed ReleaseIndicati ons:Iron deficiency anemia due to chronic blood loss TAKE 1 TABLET BY MOUTH TWICE A DAY 180 Tablet 4 024 Discontinued Hospital, Clinic, or Other Facility Administered Medication Ordered Dose Route Frequency Start Date End Date Status Albuterol Sulfate (Proventil) (2.5 MG/3ML) 0.083% inhalation solution 2.5 mgIndications:Dyspnea on exertion 2.5 mg NEBULIZER ONCE PRN 03/23/2024 03/23/2025 Active documented as of this encounter (statuses as of 08/10/2024) Active Problems Problem Noted Date Diagnosed Date Iron deficiency anemia due to chronic blood loss 03/15/2021 Dyslipidemia, goal LDL below 130 06/13/2015 GERD (gastroesophageal reflux disease) 5 Thrombosed hemorrhoids 10/21/2013 Pulsatile tinnitus 04/20/2008 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/04/2007 Overview (03/13/2007): repeat colonoscopy in 5 years Rosacea 09/05/2004 documented as of this encounter (statuses as of 08/10/2024) Resolved Problems Problem Noted Date Diagnosed Date [...] as of this encounter (statuses as of 08/10/2024) Immunizations Name Administration Dates Next Due COVID-19 mRNA, LNP-s, No Pre serve, 2-Dose Series ([employer]) 12/05/2020,11/14/2020 Seasonal Influenza, Quadrivalent Hd (Fluzone Hd) [...] 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 file Not on file documented as of this encounter Miscellaneous Notes * Telephone Encounter - Iris Alonso RN - 08/10/2024 3:37 PM ESTSigned Prescriptions: Disp Refills Ferrous Sulfate 324 (65 Fe) MG Oral Tablet*180 Ta*1 Sig: TAKE 1TABLET BY MOUTH TWICE A DAYAuthorizing Provider: RORO JACKSON * Telephone Encounter - Iris Alonso RN - 08/10/2024 3:29 PM ESTPending Prescriptions: Disp Refills Ferrous Sulfate 324 (65 Fe) MG Oral Tablet*180 Ta*1 Sig: TAKE 1 TABLET BY MOUTH TWICE A DAY * Telephone Encounter - Iris Alonso RN - 08/10/2024 3:27 PM EST Patient had recent CBCd, ferritin, iron screen 07/20/24- ferritin 55, hgb 15.3 Per last office note 01/21/24: "Continue ferrous sulfate 1 tablet BID " documented in this encounter Plan of Treatment Upcoming Encounters Date Type Department Care Team (Late st Contact Info) Description 01/21/2025 2:00 PM EDT Office Visit Hematology/Oncology [facility] [place] [address] [facility] [place] [phone] Roro Jackson CRNP [address] [facility] [place] [address] 03/25/2025 8:20 AM EDT Office Visit [facility] [address] [facility] [place] [address] Jose Albrecht MD [address] [facility] [place] [id number] Scheduled Procedures Name Priority Associated Diagnoses Date/Ti [...] Not on filedocumented as of this encounter Visit Diagnoses Diagnosis Iron deficiency anemia due to chronic blood loss Iron deficiency anemia secondary to blood loss (chronic) documented in this encounter Care Teams Char Dust Cleaner And Salvager Relationship Specialty Start Date End Date Jose Albrecht MD [address] [place] [address] PCP - General 03/03/07 documented as of this encounter
--- OUTSIDE RECORDS SUMMARY | 2024-11-06 00:47 | External Medical Summary ---
Author Name Unknown Address Unknown Organization K09:[facility] [place] [address] Laboratory Report Ordering Provider Test Date Status EAMON COLLIER 07/20/2024 09:19:38 Final Observation Date Value Abnormality Reference (Units ) Status WBC, Total 07/20/2024 09:19:38 6.06 4.00-10.8 0 (K/uL) Final RBC 07/20/2024 09:19:38 5.10 4.50-5.25 (M/uL) Final Hemoglobin 07/20/2024 09:19:38 15.3 14.0-16.8 (g/dL) Final HCT 07/20/2024 09:19:38 46.2 40.0-48.4 (%) Final MCV 07/20/2024 09:19:38 90.6 82.0-99.5 (fL) Final MCH 07/20/2024 09:19:38 30.0 27.0-34.0 (pg) Final MCHC 07/20/2024 09:19:38 33.1 32.0-36.0 (g/dL) Final RDW 07/20/2024 09:19:38 13.6 11.5-15.5 (%) Final Platelets 07/20/2024 09:19:38 266 140-400 (K /uL) Final MPV 07/20/2024 09:19:38 10.1 6.6-11.1 ( fL) Final Performing Location [facility] [place] [address]
[2024-11-06] MEDS: HYDROmorphone INJ 0.5 MG/0.5 ML SYR IV STA (00:49)
[2024-11-06 04:57] LABS: Basophils # (auto) 0.05 K/uL (0.00-0.20); Basophils % (auto) 0.4 %; Eosinophils # (auto) 0.04 K/uL (0.00-0.50); Eosinophils % (auto) 0.3 %; Hematocrit (blood only) 39.3 % (42.0-52.0); Hemoglobin 13.4 g/dl (14.0-18.0); Immature Granulocytes # (auto) 0.04 K/uL (0.01-0.20); Immature Granulocytes % (auto) 0.3 %; Lymphocytes # (auto) 1.87 K/uL (1.20-3.40); Lymphocytes % (auto) 16.2 %; Mean Corpuscular Hemoglobin 30.4 pg (25.0-34.0); Mean Corpuscular Hgb Conc 34.1 g/dL (32.0-36.0); Mean Corpuscular Volume 89.1 fL (80.0-100.0); Mean Platelet Volume 9.9 fL (9.4-12.4); Monocytes # (auto) 1.04 K/uL (0.11-0.59); Neutrophils # (auto) 8.47 K/uL (1.40-6.50); Neutrophils % (auto) 73.8 %; Platelet Count 271 K/uL (130-400); RDW Coefficient of Variation 12.6 % (11.5-14.5); RDW Standard Deviation 41.5 fL (36.4-46.3); Red Blood Count 4.41 M/uL (4.70-6.10); White Blood Count 11.51 K/ul (4.8-10.8)
[2024-11-06 05:08] LABS: BUN Creatinine Ratio 15.7 (10-20); Creatinine Clr Calc Pharmacy 60.2 ml/min; Potassium 4.3 mmol/L (3.5-5.1)
[2024-11-06 05:27] LABS: Ferritin 24.5 ng/ml (8-388)
[2024-11-06] MEDS: ROSUVASTATIN CALCIUM 5 MG TAB PO SCH (08:02)
[2024-11-06] MEDS: PANTOprazole 40 MG/10 ML SYR IV SCH (08:02)
[2024-11-06] MEDS: HEPARIN SOD 5,000 UNIT/0.5 ML VIAL SQ SCH (08:29)
--- NOTE | 2024-11-06 11:01 | Gastrointestinal Consultation ---
Date of Consultation November 06, 2024 Assessment & Plan (1) Large hiatal hernia: Patient admitted with ongoing issues with stomach and chest pain related to eating that were more severe in nature. Imaging was suggestive of moderate to large hiatal hernia which is likely what is causing his issues. EGD in 2020 also shown this. - set up Barium swallow to further evaluate. - patient may benefit from surgical repair of his hiatal hernia. Supervising Physician Co-Signing Physician Notes I personally saw and examined the patient. I have reviewed the chart and agree with the documentation provided by the CLINICAL REHABILITATION AIDE including discussion about the assessment, treatment and plan. Briefly, 69 year old male with past medical history of iron deficiency anemia on iron tablets, hyperlipidemia, large hiatal hernia presented to the hospital with acute onset of abdominal pain after food intake. He tells me that he has had this ongoing for a few months, but also admits he had this ongoing when he had his last EGD in 2020 showing a large hiatal hernia. Most recently, these episodes have been lasting longer and this most recent one was more severe than before which is why he proceeded to the ED. he tells me that symptoms can come on with anything he eats or drinks though he notes it always comes on with oral intake. He had CT 11/05 showing persistent moderate to large esophageal hiatal hernia. A barium study was done and he has a 7 x 9 cm paraesophageal hernia. This hernia is associated with an axial twist when it goes back into the abdominal cavity and could potentially lead to intermittent obstruction. He states that the symptoms have been going on for 2 years and have progressively gotten worse. His symptoms are of early satiety nausea and occasional abdominal pain. This pain was the worst he has had. It was associated with nausea. Given the findings on the barium swallow he should get a consult with Dr. High or Dr. Loaiza for paraesophageal hernia repair -generally done outpatient. In the meantime his symptoms are gone now and he can take a soft mechanical diet which he should do slowly and roslyn with water. GI has no other further recommendations History of Present Illness Reason for Consultation: large hiatal hernia Requesting Physician: Brett Capellan MD Attending Physician: Candy Cates MD History of Present Illness Patient is a 69 year old male with past medical history of iron deficiency anemia on iron tablets, hyperlipidemia, large hiatal hernia presented to the hospital with acute onset of abdominal pain after food intake. He tells me that he has had this ongoing for a few months, but also admits he had this ongoing when he had his last EGD in 2020 showing a large hiatal hernia. Most recently, these episodes have been lasting longer and this most recent one was more severe than before which is why he proceeded to the ED. he tells me that symptoms can come on with anything he eats or drinks though he notes it always comes on with oral intake. He had CT 11/05 showing persistent moderate to large esophageal hiatal hernia. chest ray 11/05 shown gas filled large hiatal hernia. rest of GI ros are unremarkable. Allergies Allergy/AdvReac Type Severity Reaction Status Date / Time No Known Drug Allergies Allergy Unknown NKDA Verified 11/05/24 18:31 Home Medications Medication Instructions Recorded Confirmed Type rosuvastatin 5 mg tablet 5 mg PO QAM 02/03/21 11/05/24 History ferrous sulfate 324 mg (65 mg 324 mg PO BID #60 tabs 02/07/21 11/05/24 Rx iron) tablet,delayed release Patient History Surgical History History of inguinal hernia repair H/O hemorrhoidectomy History of colonoscopy History of esophagogastroduodenoscopy (EGD) Family History Father Coronary heart disease Social History Smoking Status: Never smoker Second Hand Exposure: No; Do You Dip or Chew Tobacco: No; Hx Alcohol Use: No Hx Substance Use: No Preferred Language: Divehi Communication Ability: Effective Assistant Clinical Director Required: No Beliefs That Will Affect Care: None Current Living Situation: Spouse Feels Safe at Home: Yes Assistive Devices: None Review of Systems Review of Systems: All systems reviewed & are unremarkable except as noted in HPI & below Physical Exam Constitutional: WD/WN, vitals as above Respiratory: normal respiratory effort, lungs clear to auscultation Cardiovascular: Rate/Rhythm: regular rate and regular rhythm Gastrointestinal (Abdomen): normal bowel sounds, soft, nontender, no hepatosplenomegaly Psychiatric: Orientation: alert and oriented x 3 Affect: euthymic affect Results & Data Vital Signs (Past 12 Hours) Vital Signs Temp Pulse Pulse Resp BP BP Pulse Ox 11/06/24 09:09 75 14 95 11/06/24 08:30 74 20 96 11/06/24 08:15 74 16 92 11/06/24 08:00 111/75 11/06/24 07:42 94 11/06/24 07:21 73 24 94 11/06/24 06:59 72 11/06/24 06:00 72 18 130/85 91 11/06/24 04:00 76 16 104/76 93 11/06/24 02:00 86 14 108/78 92 11/06/24 01:13 11/06/24 01:00 83 16 106/80 92 11/06/24 00:06 97.9 F 91 H 17 107/74 96 11/06/24 00:03 88 11/06/24 00:00 87 18 107/74 97 11/05/24 23:45 90 19 96 11/05/24 23:45 88 19 127/78 96 11/05/24 23:30 92 H 18 127/78 96 11/05/24 23:00 100 H 18 139/92 95 Pulse Ox O2 Del Method O2 Del Method 11/06/24 09:09 Room Air 11/06/24 08:30 Room Air 11/06/24 08:15 Room Air 11/06/24 08:00 11/06/24 07:42 Room Air 11/06/24 07:21 Room Air 11/06/24 06:59 11/06/24 06:00 Room Air 11/06/24 04:00 Room Air 11/06/24 02:00 Room Air 11/06/24 01:13 92 Room Air 11/06/24 01:00 Room Air 11/06/24 00:06 Room Air 11/06/24 00:03 11/06/24 00:00 Room Air 11/05/24 23:45 Room Air 11/05/24 23:45 Room Air 11/05/24 23:30 Room Air 11/05/24 23:00 Room Air Coding Level of Care Code 86971 INT INP/OBS CARE 255MIN Diagnoses Large hiatal hernia K44.9
--- NOTE | 2024-11-06 11:18 | Surgery Progress Note ---
<Statement entered by Kylee oH DO - 11/06/24 11:39> I have seen and examined this patient and I agree with this plan Date of Service November 06, 2024 Assessment & Plan (1) Large hiatal hernia: Plan: pt here with left sided abdominal pain work up thus far reveals a large hiatal hernia, this has been present since at least 2020 he has had intermittent symptoms but recently this episode did not go away like his prior ones. currently this AM symptoms resolved GI evaluated patient today and may recommend barium swallow vs EGD Pending their evaluation from our standpoint he may resume diet and see how he fairs may need center that repairs hiatal hernia's more routinely if needs to be repaired more urgently but can have an outpt f/u with dr. worthington who can further refer/eval from there Admission and Anticipated Discharge Date Admission Date: November 05, 2024 Subjective Patient feeling better than yesterday. Otherwise describes his pain as L sided and no association with food. he is passing gas Physical Exam Physical Exam: awake/alert, no distress Gastrointestinal (Abdomen): Percussion/Palpation: abdomen soft Results & Data Vital Signs (Past 12 Hours) Vital Signs Temp Pulse Pulse Resp BP BP Pulse Ox 11/06/24 09:09 75 14 95 11/06/24 08:30 74 20 96 11/06/24 08:15 74 16 92 11/06/24 08:00 111/75 11/06/24 07:42 94 11/06/24 07:21 73 24 94 11/06/24 06:59 72 11/06/24 06:00 72 18 130/85 91 11/06/24 04:00 76 16 104/76 93 11/06/24 02:00 86 14 108/78 92 11/06/24 01:13 11/06/24 01:00 83 16 106/80 92 11/06/24 00:06 97.9 F 91 H 17 107/74 96 11/06/24 00:03 88 11/06/24 00:00 87 18 107/74 97 11/05/24 23:45 90 19 96 11/05/24 23:45 88 19 127/78 96 11/05/24 23:30 92 H 18 127/78 96 Pulse Ox O2 Del Method O2 Del Method 11/06/24 09:09 Room Air 11/06/24 08:30 Room Air 11/06/24 08:15 Room Air 11/06/24 08:00 11/06/24 07:42 Room Air 11/06/24 07:21 Room Air 11/06/24 06:59 11/06/24 06:00 Room Air 11/06/24 04:00 Room Air 11/06/24 02:00 Room Air 11/06/24 01:13 92 Room Air 11/06/24 01:00 Room Air 11/06/24 00:06 Room Air 11/06/24 00:03 11/06/24 00:00 Room Air 11/05/24 23:45 Room Air 11/05/24 23:45 Room Air 11/05/24 23:30 Room Air PG Care Time/CCT Total # of Minutes Spent Total Time Spent with Patient: Total time spent is greater than 50% in coordination of care (as documented) at patient's floor/unit and/or counseling patient: Coding Level of Care Code 75317 SUB INP/OBS CARE 10/10MIN Diagnoses Large hiatal hernia K44.9
--- NOTE | 2024-11-06 11:18 | Hospitalist Progress Note ---
Date of Service November 06, 2024 Assessment & Plan (1) Intractable abdominal pain: (2) Large hiatal hernia: Plan Patient is a 69-year-old male with past medical history of iron deficiency anemia on iron tablets, hyperlipidemia, large hiatal hernia who presented to the hospital with the acute onset of abdominal pain after food intake. Abdominal pain/chest pain Large hiatal hernia Patient presented to the hospital with acute onset of abdominal pain after food intake; similar episodes several times in the last month CT abdomen and pelvis noting a large hiatal hernia. Last endoscopy in January 2021 showed large hiatal hernia as well. EKG grossly unremarkable for ACS High sensitivity troponin negative GI was consulted, appreciate recs. Recommended/stated the following: -barium swallow completed on 11/06/24 -Per GI Dr Carey "...A barium study was done and he has a 7 x 9 cm paraesophageal hernia. This hernia is associated with an axial twist when it goes back into the abdominal cavity and could potentially lead to intermittent o bstruction. He states that the symptoms have been going on for 2 years and have progressively gotten worse. His symptoms are of early satiety nausea and occasional abdominal pain. This pain was the worst he has had. It was associated with nausea. Given the findings on the barium swallow he should get a consult with Dr. High or Dr. Loaiza for paraesophageal hernia repair - generally done outpatient. In the meantime his symptoms are gone now and he can take a soft mechanical diet which he should do slowly and roslyn with water. GI has no other further recommendations..." General surgery was also consulted, appreciate recs. Recommended/stated the following: "...GI evaluated patient today and may recommend barium swallow vs EGD Pending their evaluation from our standpoint he may resume diet and see how he fairs may need center that repairs hiatal hernia's more routinely if needs to be repaired more urgently but can have an outpt f/u with dr. high who can further refer/eval from there..." Pt's diet resumed as a regular one, soft, encourage to eat slowly and use water while eating to help with bolus progression Continue ppi Continue prn pain meds Continue to monitor overnight Chronic conditions; Iron deficiency anemia; hemoglobin on presentation of 15; iron panel pending. Frequency of iron tablet could be reduced or potentially discontinued. Might be contributing to GERD symptoms Hyperlipidemia; continue on rosuvastatin Diet: regular, soft bite, sized per GI Full code DVT prophylaxis heparin SQ Dispo: Home once medically stable Admission and Anticipated Discharge Date Admission Date: November 05, 2024 Subjective Pt was seen while still down in the ED Noted that his symptoms had improved at that time Was awaiting EGD/barium swallow with GI Review of Systems Review of Systems: All systems reviewed & are unremarkable except as noted in Subjective Physical Exam Physical Exam: General: Alert, oriented. No acute distress Psych: Appropriate mood and affect HEENT: NC/AT CV: RRR Resp: Breath sounds clear bilaterally, no increased effort of breathing Abdomen:Soft, nontender, nondistended Extremities: No edema in lower extremities bilaterally. Results & Data Results & Data Vital Signs (Past 12 Hours) Vital Signs Temp Pulse Pulse Resp BP BP Pulse Ox 11/06/24 09:09 75 14 95 11/06/24 08:30 74 20 96 11/06/24 08:15 74 16 92 11/06/24 08:00 111/75 11/06/24 07:42 94 11/06/24 07:21 73 24 94 11/06/24 06:59 72 11/06/24 06:00 72 18 130/85 91 11/06/24 04:00 76 16 104/76 93 11/06/24 02:00 86 14 108/78 92 11/06/24 01:13 11/06/24 01:00 83 16 106/80 92 11/06/24 00:06 36.6 C 91 H 17 107/74 96 11/06/24 00:03 88 11/06/24 00:00 87 18 107/74 97 11/05/24 23:45 90 19 96 11/05/24 23:45 88 19 127/78 96 11/05/24 23:30 92 H 18 127/78 96 Pulse Ox O2 Del Method O2 Del Method 11/06/24 09:09 Room Air 11/06/24 08:30 Room Air 11/06/24 08:15 Room Air 11/06/24 08:00 11/06/24 07:42 Room Air 11/06/24 07:21 Room Air 11/06/24 06:59 11/06/24 06:00 Room Air 11/06/24 04:00 Room Air 11/06/24 02:00 Room Air 11/06/24 01:13 92 Room Air 11/06/24 01:00 Room Air 11/06/24 00:06 Room Air 11/06/24 00:03 11/06/24 00:00 Room Air 11/05/24 23:45 Room Air 11/05/24 23:45 Room Air 11/05/24 23:30 Room Air Diagnostic Findings Chest X-Ray 11/05/24 15:57 Chest radiograph, one view History: Chest pain Comparison: None Findings: Single AP view of the chest performed. No focal consolidation or pleural effusion. No pneumothorax. The cardiomediastinal silhouette is within normal limits. Normal pulmonary vascularity. No evidence for lymphadenopathy. No visualized bony or soft tissue abnormality. Impression: No acute process. There is a large esophageal hiatal hernia, which is gas-filled. Electronically signed by Jackson Pacheco 11-05-2024 4:42 PM Abdomen/Pelvis CT 11/05/24 16:05 EXAMINATION: CT of the abdomen and pelvis performed after the administration of IV contrast TECHNIQUE: Helical CT images from the lung bases through the symphysis pubis were obtained with contrast. Coronal and sagittal reformatted images were generated at a workstation for further assessment. Dose reduction techniques were achieved by using automatic exposure control and/or adjustment of mA and/or kV according to patient size and/or use of iterative reconstruction technique. COMPARISON: None HISTORY: Abdominal pain FINDINGS: Lower chest: No consolidation. No pleural effusion or pneumothorax. Liver: No suspicious liver lesions. Portal veins appear patent. Gallbladder: No gallstones. No evidence of acute cholecystitis. Spleen: Normal size. Pancreas: No suspicious pancreatic lesions. The pancreatic duct is not dilated. Adrenal glands: No adrenal nodules. Kidneys: No hydronephrosis or obstructing renal stones. Bladder / Pelvic organs: Unremarkable. Bowel: No bowel obstruction. No abnormal bowel wall thickening. The appendix is unremarkable. Similar moderate to large esophageal hiatal hernia, which is fluid-filled. The left colon appears decompressed, with minimal stool. No left lower quadrant inflammatory changes. Lymph nodes: No retroperitoneal, mesenteric, or pelvic lymphadenopathy. Peritoneum / Retroperitoneum: No free fluid or air within the abdomen. Vessels: No infrarenal aortic aneurysm. Bones and soft tissues: No suspicious lesion in the bones. IMPRESSION: No acute findings in the abdomen or pelvis. Persistent moderate to large esophageal hiatal hernia. Electronically signed by Jackson Pacheco 11-05-2024 5:25 PM Upper GI Series w/ Air Contrast 11/06/24 11:02 [place] GI series CLINICAL HISTORY: assess large hiatal hernia / abdominal and chest pain COMPARISON STUDY: None TECHNIQUE: The patient was given a barium mixture to drink using air contrast technique. Fluoroscopic observation and rapid sequence filming were performed. Total fluoroscopy time is 36 seconds. Total dose 27.0mGy FINDINGS: The patient has a 7 x 9 cm paraesophageal hiatal hernia. Where the herniated stomach reenters the abdominal cavity through the diaphragm, there is a minor twist identified suggesting the patient may be prone to organoaxial volvulus and intermittent obstruction which could be the cause of the patient's intermittent pain radiating to left shoulder. The esophagus is otherwise unremarkable. The gastric antrum, duodenal bulb, duodenal sweep are unremarkable. IMPRESSION: Large paraesophageal hiatus hernia. The patient is at risk for organoaxial volvulus of the stomach which may be contributing to the intermittent obstructive symptomatology. ACT 112: Negative or not required by law. Electronically signed by: Tracie Carlos M.D. 11/06/2024 12:34 PM
--- NOTE | 2024-11-06 12:35 | Fluoroscopy Report ---
[place] GI series CLINICAL HISTORY: assess large hiatal hernia / abdominal and chest pain COMPARISON STUDY: None TECHNIQUE: The patient was given a barium mixture to drink using air contrast technique. Fluoroscopic observation and rapid sequence filming were performed. Total fluoroscopy time is 36 seconds. Total d ose 27.0mGy FINDINGS: The patient has a 7 x 9 cm paraesophageal hiatal hernia. Where the herniated stomach reenters the abdominal cavity through the diaphragm, there is a minor twi st identified suggesting the patient may be prone to organoaxial volvulus and intermittent obstructio n which could be the cause of the patient's intermittent pain radiating to left shoulder. The esophagus is otherwise unremarkable. The gastric antrum, duodenal bulb, duodenal sweep are unrema rkable. IMPRESSION: Large paraesophageal hiatus hernia. The patient is at risk for organoaxial volvulus of t he stomach which may be contributing to the intermittent obstructive symptomatology. ACT 112: Negative or not required by law. Electronically signed by: Tracie Carlos M.D. 11/06/2024 12:34 PM
[2024-11-06 16:16] VITALS: RESP 18
[2024-11-07 07:11] LABS: Basophils # (auto) 0.05 K/uL (0.00-0.20); Basophils % (auto) 0.6 %; Eosinophils % (auto) 3.8 %; Hematocrit (blood only) 41.9 % (42.0-52.0); Immature Granulocytes # (auto) 0.03 K/uL (0.01-0.20); Immature Granulocytes % (auto) 0.4 %; Lymphocytes # (auto) 1.93 K/uL (1.20-3.40); Lymphocytes % (auto) 24.3 %; Mean Corpuscular Hemoglobin 29.9 pg (25.0-34.0); Mean Corpuscular Hgb Conc 33.4 g/dL (32.0-36.0); Mean Corpuscular Volume 89.5 fL (80.0-100.0); Mean Platelet Volume 10.7 fL (9.4-12.4); Monocytes # (auto) 0.68 K/uL (0.11-0.59); Monocytes % (auto) 8.6 %; Neutrophils # (auto) 4.95 K/uL (1.40-6.50); Neutrophils % (auto) 62.3 %; Platelet Count 282 K/uL (130-400); RDW Coefficient of Variation 12.7 % (11.5-14.5); RDW Standard Deviation 41.1 fL (36.4-46.3); Red Blood Count 4.68 M/uL (4.70-6.10); White Blood Count 7.94 K/ul (4.8-10.8)
[2024-11-07 07:29] LABS: Albumin Globulin Ratio 1.4 (0.9-2); Albumin Level 3.9 gm/dl (3.4-5.0); BUN Creatinine Ratio 13.6 (10-20); Bilirubin,Total 0.7 mg/dl (0.2-1.0); Calcium 9.2 mg/dl (8.6-10.3); Creatinine Clr Calc Pharmacy 70.7 ml/min; Globulin 2.7 gm/dl (2.5-4.0); Magnesium 2.2 mg/dl (1.7-2.4); Phosphorus 3.2 mg/dl (2.5-4.9); Potassium 4.4 mmol/L (3.5-5.1); Total Protein 6.6 gm/dl (6.0-8.3)
[2024-11-07 07:48] LABS: Ferritin 37.9 ng/ml (8-388)
[2024-11-07 07:52] LABS: Folate (Folic Acid),Ser orPlas 12.03 ng/ml (>5.38)
[2024-11-07 08:17] VITALS: O2SAT 94
[2024-11-07 11:55] VITALS: TEMP 97.7
--- NOTE | 2024-11-07 13:17 | Discharge Summary ---
Discharge Summary Date of Service November 07, 2024 Principal Dx & Hospital Course #1 = Principal Diagnosis (1) Intractable abdominal pain: (2) Large hiatal hernia: Plan Patient is a 69-year-old male with past medical history of iron deficiency anemia on iron tablets, hyperlipidemia, large hiatal hernia who presented to the hospital with the acute onset of abdominal pain after food intake. Abdominal pain/chest pain Large hiatal hernia Patient presented to the hospital with acute onset of abdominal pain after food intake; similar episodes several times in the last month CT abdomen and pelvis noting a large hiatal hernia. Last endoscopy in January 2021 showed large hiatal hernia as well. EKG grossly unremarkable for ACS High sensitivity troponin negative GI was consulted, appreciate recs. Recommended/stated the following: -barium swallow completed on 11/06/24 -Per GI Dr Carey "...A barium study was done and he has a 7 x 9 cm paraesophageal hernia. This hernia is associated with an axial twist when it goes back into the abdominal cavity and could potentially lead to intermittent obstruction. He states that the symptoms have been going on for 2 years and have progressively gotten worse. His symptoms are of early satiety nausea and occasional abdominal pain. This pain was the worst he has had. It was associated with nausea. Given the findings on the barium swallow he should get a consult with Dr. High or Dr. Loaiza for paraesophageal hernia repair - generally done outpatient. In the meantime his symptoms are gone now and he can take a soft mechanical diet which he should do slowly and roslyn with water. GI has no other further recommendations..." General surgery was also consulted, appreciate recs. Recommended/stated the following: "...GI evaluated patient today and may recommend barium swallow vs EGD Pending their evaluation from our standpoint he may resume diet and see how he fairs may need center that repairs hiatal hernia's more routinely if needs to be repaired more urgently but can have an outpt f/u with dr. high who can further refer/eval from there..." Pt's diet resumed as a regular one, soft and mechanical, he was encouraged to eat slowly and use water while eating to help with bolus progression Continue ppi, discharged with pantoprazole 40mg daily. Continue prn pain meds On the day of discharge, pt noted that he had no further episodes of chest/abdominal pain while eating slowly and on the soft mechanical diet. Discharged with s=instructions to follow up with pcp and general surgery as noted above. Chronic conditions; Iron deficiency anemia; hemoglobin on presentation of 15; iron levels appropriately supplemented. Frequency of iron tablet could be reduced or potentially discontinued. Might be contributing to GERD symptoms Hyperlipidemia; continue on rosuvastatin Notes For Next Care Provider Per GI and General surgery: Pt should have a consult with Dr. High or Dr. Loaiza for paraesophageal hernia repair Diet per GI: "...he can take a soft mechanical diet which he should do slowly and roslyn with water..." Medication Changes From Visit pantoprazole 40mg daily Admission HPI Per Admitting Provider History obtained from chart review and interview with the patient Past medical history of hyperlipidemia, iron deficiency anemia, GERD Patient presented to the hospital with acute onset of abdominal pain after eating lunch; started in epigastric region with radiation to shoulder. He reports similar pain in the past as well which is always associated with food intake. He reports that the symptoms usually will last for 1 to 2 hours and wi ll subside. However, patient's pain persisted today which prompted him to come to the ED. Patient was last hospitalized in January 2021 for iron deficiency anemia. He underwent endoscopy which showed large hiatal hernia. Patient currently takes iron tablets and rosuvastatin; he is not on [id number] medication. On presentation to the ED, patient was normotensive, afebrile and saturating well on room air. WBC revealed mild leukocytosis Chest x-ray showed large esophageal hiatal hernia which is gas-filled. CT abdomen and pelvis also showed large hiatal hernia; no other acute finding Admission Exam Per Admitting Provider Constitutional: Alert oriented x 3; not in distress. Respiratory: normal respiratory effort, lungs clear to auscultation, no wheeze, rales, rhonchi. Normal insp/exp effort, no accessory muscle use Cardiovascular: RRR, no murmur, no edema Vessels: no JVD or carotid bruit Chest: normal inspection of chest Abdomen: Mild tenderness in epigastric region Skin: no rashes, warm and dry normal turgor Neurologic: PERRL, EOMI, accommodation nl, no face palsy, no dysarthria CN's II- XI intact bilaterally and moves all extremities Discharge Exam General: Alert, oriented. No acute distress Psych: Appropriate mood and affect HEENT: NC/AT CV: RRR Resp: Breath sounds clear bilaterally, no increased effort of breathing Abdomen:Soft, nontender, nondistended Extremities: No edema in lower extremities bilaterally. Updated Medication List Medication Instructions Recorded Confirmed Type rosuvastatin 5 mg tablet 5 mg PO QAM 02/03/21 11/05/24 History ferrous sulfate 324 mg (65 mg 324 mg PO BID #60 tabs 02/07/21 11/05/24 Rx iron) tablet,delayed release pantoprazole 40 mg tablet,delayed 40 mg PO DAILY #30 tabs 11/07/24 Rx release Hospital Stay Data Consultations 11/05/24 21:10 ED Decision to Admit Stat 11/05/24 21:31 Consult General Surgery Stat 11/05/24 21:40 Consult Gastroenterology Routine Diagnostic Imagining Performed 11/05/24 16:05 CT Abd and Pelvis [CT abd pelvis IV con only] Stat 11/06/24 11:02 FL GI series Routine Chest X-Ray 11/05/24 15:57 Chest radiograph, one view History: Chest pain Comparison: None Findings: Single AP view of the chest performed. No focal consolidation or pleural effusion. No pneumothorax. The cardiomediastinal silhouette is within normal limits. Normal pulmonary vascularity. No evidence for lymphadenopathy. No visualized bony or soft tissue abnormality. Impression: No acute process. There is a large esophageal hiatal hernia, which is gas-filled. Electronically signed by Jackson Pacheco 11-05-2024 4:42 PM Abdomen/Pelvis CT 11/05/24 16:05 EXAMINATION: CT of the abdomen and pelvis performed after the administration of IV contrast TECHNIQUE: Helical CT images from the lung bases through the symphysis pubis were obtained with contrast. Coronal and sagittal reformatted images were generated at a workstation for further assessment. Dose reduction techniques were achieved by using automatic exposure control and/or adjustment of mA and/or kV according to patient size and/or use of iterative reconstruction technique. COMPARISON: None HISTORY: Abdominal pain FINDINGS: Lower chest: No consolidation. No pleural effusion or pneumothorax. Liver: No suspicious liver lesions. Portal veins appear patent. Gallbladder: No gallstones. No evidence of acute cholecystitis. Spleen: Normal size. Pancreas: No suspicious pancreatic lesions. The pancreatic duct is not dilated. Adrenal glands: No adrenal nodules. Kidneys: No hydronephrosis or obstructing renal stones. Bladder / Pelvic organs: Unremarkable. Bowel: No bowel obstruction. No abnormal bowel wall thickening. The appendix is unremarkable. Similar moderate to large esophageal hiatal hernia, which is fluid-filled. The left colon appears decompressed, with minimal stool. No left lower quadrant inflammatory changes. Lymph nodes: No retroperitoneal, mesenteric, or pelvic lymphadenopathy. Peritoneum / Retroperitoneum: No free fluid or air within the abdomen. Vessels: No infrarenal aortic aneurysm. Bones and soft tissues: No suspicious lesion in the bones. IMPRESSION: No acute findings in the abdomen or pelvis. Persistent moderate to large esophageal hiatal hernia. Electronically signed by Jackson Pacheco 11-05-2024 5:25 PM Upper GI Series w/ Air Contrast 11/06/24 11:02 [place] GI series CLINICAL HISTORY: assess large hiatal hernia / abdominal and chest pain COMPARISON STUDY: None TECHNIQUE: The patient was given a barium mixture to drink using air contrast technique. Fluoroscopic observation and rapid sequence filming were performed. Total fluoroscopy time is 36 seconds. Total dose 27.0mGy FINDINGS: The patient has a 7 x 9 cm paraesophageal hiatal hernia. Where the herniated stomach reenters the abdominal cavity through the diaphragm, there is a minor twist identified suggesting the patient may be prone to organoaxial volvulus and intermittent obstruction which could be the cause of the patient's intermittent pain radiating to left shoulder. The esophagus is otherwise unremarkable. The gastric antrum, duodenal bulb, duodenal sweep are unremarkable. IMPRESSION: Large paraesophageal hiatus hernia. The patient is at risk for organoaxial volvulus of the stomach which may be contributing to the intermittent obstructive symptomatology. ACT 112: Negative or not required by law. Electronically signed by: Tracie Carlos M.D. 11/06/2024 12:34 PM Pending Results Patient Have Any Pending Studies at Discharge: No Discharge Instructions Given to Patient (Per Discharging Provider) Rasheed, You were admitted and treated for chest/abdominal pain in the setting of a very large paraesophageal hernia. You were seen by both the gastrointestinal specialists and the surgical specialists. Gastroenterology and General Surgery recommended that you follow up with General Surgeons Dr Nnamdi High or Dr Richard Loaiza for further outpatient evaluation for possible surgical repair of this hernia. Gastroenterology continued that you should have a soft diet from here on out, eat and chew slowly and use water frequently to help propel your food. They can be found at [address] [facility] [address]. Please continue with the pantoprazole 40mg daily prescribed. Please keep close follow up with your primary care provider after discharge. Please do not hesitate to come back to the emergency room if your symptoms worsen or return. It was a pleasure taking care of you while you were here. Total Time Total Time Spent Total Time Spent (In Minutes): 60
[2024-11-07 13:47] VITALS: BP 127/80; PULSE 67
== END 2024-11-07 14:23 | disposition home or self-care (01) | DRG 392 ==
LOC: ED 15:51 → EDINP 21:40 → 2N 23:21

== ENCOUNTER 2024-12-03 11:21 | Observation (INO) ==
--- NOTE | 2024-11-25 10:27 | Anesthesiology Consultation ---
Date of Service November 25, 2024 Assessment & Plan (1) Encounter for pre-operative examination: Chart Review Chart Review: Acceptable Risk for Surgery and Patient NOT seen in Pre Admission Testing Consults Requested none History Surgery Operation Date: 12/03/24 13:15 Proposed Procedures p Laparoscopic Hiatal Hernia Repair - Nnamdi High DO Height/Weight Height: 5 ft 6 in Weight: 76.657 kg Allergies Allergy/AdvReac Type Severity Reaction Status Date / Time No Known Drug Allergies Allergy Unknown NKDA Verified 11/25/24 07:58 Medications Home Medications Medication Instructions Recorded Confirmed Last Taken rosuvastatin 5 mg tablet 5 mg PO QAM 02/03/21 11/25/24 11/05/24 ferrous sulfate 324 mg (65 mg 324 mg PO QAM 11/25/24 11/25/24 Unknown iron) tablet,delayed release pantoprazole 40 mg tablet,delayed 40 mg PO QAM 11/25/24 11/25/24 Unknown release Past Medical History Medical History History of DVT (deep vein thrombosis) (2020) took anticoag med for 3 months, then discontinued, no issues since Pulmonary nodule no longer following or monitoring History of GI bleed unsure possibly 2020, had transfusions [facility] HLD (hyperlipidemia) Large hiatal hernia GERD (gastroesophageal reflux disease) Anemia Hospitalist note 11/06/24: Assessment & Plan (1) Intractable abdominal pain: (2) Large hiatal hernia: Plan Patient is a 69-year-old male with past medical history of iron deficiency anemia on iron tablets, hyperlipidemia, large hiatal hernia who presented to the hospital with the acute onset of abdominal pain after food intake. Abdominal pain/chest pain Large hiatal hernia Patient presented to the hospital with acute onset of abdominal pain after food intake; similar episodes several times in the last month CT abdomen and pelvis noting a large hiatal hernia. Last endoscopy in January 2021 showed large hiatal hernia as well. EKG grossly unremarkable for ACS High sensitivity troponin negative GI was consulted, appreciate recs. Past Family History Family History Father Coronary heart disease Past Surgical History Surgical History History of inguinal hernia repair H/O hemorrhoidectomy History of colonoscopy ?2020 History of esophagogastroduodenoscopy (EGD) Social History Smoking Status: Never smoker Do You Dip or Chew Tobacco: No Hx Alcohol Use: Yes Alcohol type: beer alcohol intake frequency: 0-2 drinks per day Hx Substance Use: No substance use type: does not use Testing Laboratory Results Laboratory Tests 11/07/24 05:48 WBC 7.94 Hgb 14.0 Hct 41.9 L Plt Count 282 Sodium 140 Potassium 4.4 Chloride 106 Carbon Dioxide 28 BUN 14 Creatinine 1.03 Glucose 86 Electrocardiogram Date: 11/05/24 DICTATED BY: Jackson Ogden MD Test Reason : Blood Pressure : */* mmHG Vent. Rate : 83 BPM Atrial Rate : 83 BPM P-R Int : 166 ms QRS Dur : 134 ms QT Int : 384 ms P-R-T Axes : 36 -32 13 degrees QTcB Int : 451 ms Normal sinus rhythm Left axis deviation Right bundle branch block Abnormal ECG When compared with ECG of 03-Feb-2021 11:32, QRS axis Shifted left Confirmed by Jackson Ogden ([id number]) on 11/05/2024 5:56:17 PM Chest X-Ray Date: 11/05/24 Chest radiograph, one view History: Chest pain Comparison: None Findings: Single AP view of the chest performed. No focal consolidation or pleural effusion. No pneumothorax. The cardiomediastinal silhouette is within normal limits. Normal pulmonary vascularity. No evidence for lymphadenopathy. No visualized bony or soft tissue abnormality. Impression: No acute process. Echocardiogram Date: 11/06/24 LV systolic function is normal. EF 60-65% LV wall motion is normal Grade 1 DD Mild TR Aortic root is mildly enlarged 4.1cm.
[2024-12-03] MEDS: LR 15ML/HR IV SCH (11:55)
[2024-12-03] MEDS ORDERED: MIDAZOLAM HCL 1 MG/ML 2ML VIAL ONE (12:30)
[2024-12-03] MEDS ORDERED: ONDANSETRON INJ 2 MG/ML 2 ML VIAL ONE ×2 (12:31→17:09)
[2024-12-03] MEDS ORDERED: PROPOFOL IV EMULSION 10 MG/ML 20 ML VIAL IV ONE (12:31)
[2024-12-03] MEDS ORDERED: ROCURONIUM BROMIDE 10 MG/ML 5 ML VIAL IV ONE ×2 (12:31→15:18)
[2024-12-03] MEDS ORDERED: DEXAMETHASONE SOD INJ 4 MG/ML VIAL ONE (12:31)
[2024-12-03] MEDS ORDERED: LIDOCAINE 2% 2 ML VIAL/AMP(20MG/ML) INFIL ONE (12:31)
[2024-12-03] MEDS ORDERED: GLYCOPYRROLATE 0.2 MG/ML VIAL ONE (12:31)
[2024-12-03] MEDS ORDERED: fentaNYL citrate PF 100 MCG/2 ML VIAL ONE ×2 (12:31→15:00)
--- NOTE | 2024-12-03 13:40 | History & Physical Bridge Note ---
Date of Service December 03, 2024 History & Physical Bridge Note I have examined the patient, reviewed the History & Physical and in the interval since the performance of the History & Physical I have noted the following changes of clinical significance: no changes noted
[2024-12-03] MEDS: ceFAZolin 2000MG 2,000 MG/15 ML SYR IV SCH (14:17)
[2024-12-03] MEDS: BUPIVACAINE/EPINEPHRINE 0.5% MPF 1:200,000 30 ML VIAL ONE ×2 (14:25→22:05)
[2024-12-03] MEDS ORDERED: LABETALOL HCL IV 5 MG/ML 20ML IV ONE (15:21)
[2024-12-03] MEDS ORDERED: PHENYLEPHRINE 100MCG/ML 5ML SYR ONE (15:26)
[2024-12-03] MEDS ORDERED: ePHEDrine sulfate 50 MG/5 ML SYR ONE (15:26)
[2024-12-03] MEDS ORDERED: SUGAMMADEX SODIUM 200 MG/2 ML VIAL IV ONE (17:02)
--- NOTE | 2024-12-03 17:32 | Operative Report ---
PG Post Operative Report Pre & Post Diagnosis Operation Date: 12/03/24 13:05 Pre-Op Diagnosis: Large Hiatal Hernia Post-Op Diagnosis: Large Hiatal Hernia with gastric torsion I identified the patient and participated in the time-out.: Yes Procedure Operation Date: 12/03/24 13:05 Actual Procedures p Laparoscopic Hiatal Hernia Repair(Not Applicable) ; anterior and posterior gastropexy- Nnamdi High DO Surgeon Nnamdi High DO Tack Puller Machine ayaka Diamond Estimated Blood Loss 300 Findings Consistent with Post-Op Diagnosis Specimens none Description of Procedure After informed consent was obtained the patient was taken to the operating room and placed in supine position. After successful intubation an orogastric tube was placed by anesthesia. The abdomen was then shaved and sterilely prepped and draped in usual fashion. A supraumbilical incision was made with an 11 blade scalpel and carried down through the soft tissue using cautery. Anterior fascia was opened using cautery and two #0 Vicryl stay sutures were placed. Peritoneum was entered using blunt finger penetration and a finger sweep performed. A 12 mm Lerma trocar was placed and the abdomen was insufflated to 18 mmHg. Laparoscope was inserted and the abdomen examined 360 degrees. A right upper quadrant 5 mm trocar was placed and a liver retractor attached to the table was placed on the left lobe of the liver. This exposed a rather large probably 5 cm hiatal hernia with gastric incarceration. I placed a left upper quadrant 5 mm trocar subxiphoid 12 mm trocar and a right upper quadrant 12 mm trocar. The patient was placed in reverse Trendelenburg position and slightly airplaned to the left. We began by attempting to reduce the stomach with some gentle traction. What we quickly realized is that the stomach was torsed probably in 270 degrees at least. When we would attempt to untwist it it would simply resume it prior shape. The dissection to reduce the stomach was extremely tedious and probably took almost 2 hours of the procedure. I began along the right angela of the diaphragm with the harmonic scalpel and using traction we took down the hernia sac. We use the same maneuver over on the right crura of the diaphragm. There was a small amount of bleeding during this process and we controlled this using a clip acid tender. We continued to come from the left side and then the right side and then posteriorly to slowly and tediously take down attachments from the stomach to the thoracic cavity. Initially we had glenda le attempted pass a 48 Bengali bougie. Initially this was met with resistance and was impossible secondary to the twisting of the stomach. Eventually we were able to continue to take down attachments and untwist the stomach until we were able to pass the bougie. We continued to use traction countertraction and blunt dissection to free up adhesions. Eventually we were able to reduce the stomach into the abdominal cavity. The esophagus did appear to be slightly foreshortened and therefore the GE junction sits right at the angela of the diaphragm. I was able to use a series of 0 Surgidac and 2-0 Tycron to pex the stomach to the right and left crura of the diaphragm. I was then able to use 0 Surgidac to primarily close the diaphragmatic hernia anteriorly. We decreased the abdominal pressure to 12 mmHg while doing this. I was unable to safely identify the left crura of the diaphragm posteriorly. We did take down the hernia sac in 360 degrees prior to performing the repair. At the completion of the procedure there was adequate hemostasis and no other gross abnormalities. The bougie was easily removed. Liver retractor was removed as were the trocars. The abdomen was desufflated. The fascia the camera port was closed using 0 Vicryl in [id number] fashion. All the wounds were irrigated and closed using 4-0 Monocryl. Marcaine with epinephrine were injected around the incisions for postoperative analgesia and skin glue used as a dressing. The patient was awakened extubated and transferred to recovery in stable condition. My physician day care assistant was present for the entire case was instrumental in assisting with running the camera, assisting with reducing the hernia, hiatal hernia repair, gastropexy wound closure and dressing placement. I attest to the content of the Intraoperative Record and any orders documented therein. Any exceptions are noted below.
[2024-12-03] MEDS ORDERED: ATROPINE SULFATE 0.1 MG/ML 10ML SYR IV PRN (17:48)
[2024-12-03] MEDS ORDERED: ePHEDrine sulfate 50 MG/ML AMP IV PRN (17:48)
[2024-12-03] MEDS ORDERED: ONDANSETRON INJ 2 MG/ML 2 ML VIAL IV PRN ×2 (17:48→19:42)
[2024-12-03] MEDS: fentaNYL citrate PF 100 MCG/2 ML VIAL IV PRN (17:50)
--- NOTE | 2024-12-03 18:33 | Anesthesiology Progress Note ---
Date of Service December 03, 2024 Anesthesia Post Procedure Vital Signs Vital Signs: Temp Pulse Resp BP Pulse Ox O2 Del Method O2 Flow Rate 12/03/24 18:30 73 12 140/76 97 Nasal Cannula 2 12/03/24 18:15 72 12 131/81 94 Nasal Cannula 2 12/03/24 18:05 97.5 F L 79 14 126/75 94 Nasal Cannula 2 12/03/24 17:55 71 12 128/76 94 Oxymask 2 12/03/24 17:45 70 12 124/76 94 Oxymask 2 12/03/24 17:35 72 16 148/89 H 96 Oxymask 4 12/03/24 17:28 97.0 F L 82 16 165/106 H 98 Oxymask 6 12/03/24 11:45 98.4 F 65 20 137/85 95 Room Air Pain Intensity Abdomen: Pain Intensity: 5 Transfer of Care Handoff Completed per policy Notes Mental Status: alert / awake / arousable and participated in evaluation Patient Amnestic to Procedure: Yes Nausea / Vomiting: adequately controlled Pain: adequately controlled and improving with treatment Airway Patency, RR, SpO2: stable & adequate BP & HR: stable & adequate Hydration State: stable & adequate Anesthetic Complications: no major complications apparent and Pt Satisfied with anesthetic care
[2024-12-03] MEDS ORDERED: MoRPHine SULFATE 2 MG/ML CARP IV PRN (19:42)
[2024-12-03] MEDS ORDERED: PROMETHAZINE 12.5 MG/50.5 ML BAG IV PRN (19:42)
[2024-12-03] MEDS ORDERED: oxyCODONE HCL IR 5 MG TAB (IMMEDIATE RELEASE) PO PRN ×2 (19:52)
[2024-12-03] MEDS: LACTATED RINGER'S 1,000 ML IV SCH (20:03)
[2024-12-03] MEDS: ACETAMINOPHEN 1,000 MG/100 ML VIAL IV SCH (20:07)
--- OUTSIDE RECORDS SUMMARY | 2024-12-03 20:31 | External Medical Summary | Summary of Care ---
Author Name Unknown Organization [facility] Address [address] [facility] [place] [address] Phone [phone] Care Team Providers Care Metal Drilling Machine Operator Name Role Phone Jose Albrecht MD Primary Care Provider [phone] Encounter Details Date Type Department Care Team (Late st Contact Info) Description [facility] [address] [place] [phone] Jose Albrecht MD [address] [facility] [place] [address] Allergies No known active allergiesdocumented as of this encounter (statuses as of 11/13/2024) Medications Rosuvastatin Calcium 5 MG Oral Tablet (Crestor)Indicat ions:Hyperlipide derrick, unspecified TAKE 1 TABLET BY MOUTH EVERY DAY IN THE MORNING 90 Tablet 1 03/27/2024 Active Ferrous Sulfate 324 (65 Fe) MG Oral Tablet Delayed ReleaseIndicatio ns:Iron deficiency anemia due to chronic blood loss TAKE 1 TABLET BY MOUTH TWICE A DAY 180 Tablet 1 08/10/2024 Active Pantoprazole Sodium 40 MG Oral Tablet Delayed Release (Protonix) 1 Tablet. 11/07/2024 Active Hospital, Clinic, or Other Facility Administered Medication Ordered Dose Route Frequency Start Date End Date Status Albuterol Sulfate (Proventil) (2.5 MG/3ML) 0.083% inhalation solution 2.5 mgIndications:Dyspnea on exertion 2.5 mg NEBULIZER ONCE PRN 03/23/2024 03/23/2025 Active documented as of this encounter (statuses as of 11/13/2024) Active Problems Problem Noted Date Diagnosed Date Iron deficiency anemia due to chronic blood loss 03/15/2021 Dyslipidemia, goal LDL below 130 06/13/2015 GERD (gastroesophageal reflux disease) 5 Thrombosed hemorrhoids 10/21/2013 Pulsatile tinnitus 04/20/2008 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 No 03/21/2023 Is your family able to pay t he heat, water, or electric bill? (Household - for ages 0-17 years) Not on file 03/21/2023 Does your family have access to good internet? (Household - for ages 0-17 years) Not on file 03/21/2023 Employment Status Answer Date Recorded Are you unemployed or without regular income? No 03/21/2023 Does the household have a re gular source of income? (Household - for ages 0-17 years) Not on file 03/21/2023 Social Connections Answer Date Recorded How often do you feel lonely or isolated from th ose around you? 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 file Not on file Not on file documented as of this encounter Plan of Treatment Upcoming Encounters Date Type Department Care Team (Late st Contact Info) Description 01/21/2025 2:00 PM EDT Office Visit Hematology/Oncology [facility] [place] [address] [facility] [phone] Roro Jackson CRNP [address] [facility] [place] [address] 03/25/2025 8:20 AM EDT [facility] [address] [facility] [place] [phone] Jose Albrecht MD [address] [facility] [place] [address] Scheduled Procedures Name Priority Associated Diagnoses Date/Ti [...] 2024 06/19/2021, 07/28/2020, 2020 Colonoscopy 02/06/2026 02/06/2021, 05/2 12/2020, 11/25/2017, Additional history exists Colorectal Cancer Screening [...] on patient's age to complete this topic Meningitis B Vaccine (Bexsero/Trumemba) Aged Out No longer eligible based on patient's age to complete this topic documented as of this encounter Medical Devices Not on filedocumented as of this encounter Care Teams Metal Drilling Machine Operator Relationship Specialty Start Date End Date Jose Albrecht MD PCP - General 03/03/07 documented as of this encounter
--- OUTSIDE RECORDS SUMMARY | 2024-12-03 20:31 | External Medical Summary | Summary of Care ---
Author Name Unknown Organization [facility] Address [address] [place] [address] Phone [phone] Care Team Providers Care Parachute Inspector Name Role Phone Jose Albrecht MD Primary Care Provider [phone] Reason for Visit * Reason Onset Date Comments Hospital Follow-Up Patient is he re for a hospital follow up, was seen at [facility] on 11/07 for a hernia and will be having surgery. Patient reports that he is feeling pretty good today. Hospital Follow-Up 11/12/2024 Encounter Details Date Type Department Care Team (Late st Contact Info) Description 11/12/2024 11:20 AM EST [facility] [address] [place] [place] [phone] Jose Albrecht MD [address] [facility] [place] [address] Hiatal hernia*; Abdominal pain, epigastric; Risk and functional assessment; Hospital discharge follow-up Allergies No known active allergiesdocumented as of this encounter (statuses as of 11/12/2024) Medications Rosuvastatin Calcium 5 MG Oral Tablet [...] as of this encounter (statuses as of 11/12/2024) Active Problems Problem Noted Date Diagnosed Date Iron deficiency anemia due to chronic blood loss 03/15/2021 Dyslipidemia, goal LDL below 130 06/13/2015 GERD (gastroesophageal reflux disease) 5 Thrombosed hemorrhoids 10/21/2013 Pulsatile tinnitus 04/20/2008 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/04/2007 Overview (03/13/2007): repeat colonoscopy in 5 years Rosacea 09/05/2004 documented as of this encounter (statuses as of 11/12/2024) Resolved Problems Problem Noted Date Diagnosed Date [...] as of this encounter (statuses as of 11/12/2024) Immunizations Name Administration Dates Next Due COVID-19 mRNA, LNP-s, No Pre serve, 2-Dose Series ([employer]) 12/05/2020,11/14/2020 Seasonal Influenza, Quadrivalent Hd (Fluzone Hd) [...] 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 file Not on file Not on file documented as of this encounter Last Filed Vital Signs Vital Sign Reading Time Taken Comments Blood Pressure 129/85 11/12/2024 11:09 AM EST Pulse 68 11/12/2024 11:09 AM EST Temperature 36.7 C (98 F) 11/12/2024 11:09 AM EST Respiratory Rate 16 11/12/2024 11:09 AM EST Oxygen Saturation 98% 11/12/2024 11:09 AM EST Inhaled Oxygen Concentration - - Weight 79.8 kg (176 lb) 11/12/2024 11:09 AM EST Height 168 cm (5' 6.14") 11/12/2024 11:09 AM EST Body Mass Index 28.29 11/12/2024 11:09 AM EST documented in this encounter Patient Instructions * Patient Instructions* Pat Zuniga, MED ASSIST - 11/12/2024 11:13 AM EST Patient Instructions - Fall Prevention (This education is for all patients over 65 regardless of symptoms) Remember to take your current medications as prescribed. In order to prevent falls, you are encouraged to: Exercise Utilize assistive/adaptive devices Avoid multifocal lenses when walking Avoid hazards in home Maintain a regular toileting schedule Any questions please contact our office. Preventing Falls in the Home (This education is for all patients over 65 regardless of symptoms) As you get older, falls are more likely. Thats because your reaction time slows. Your muscles and joints may also get stiffer, making them less flexible. Illness, medications, and vision changes can also affect your balance. A fall could leave you unable to live on your own. To make your home safer, follow these tips: Floors Put nonskid pads under area rugs Remove throw rugs Replace worn floor coverings Tack carpets firmly to each step on carpeted stairs. Put nonskid strips on the edges of uncarpeted stairs Keep floors and stairs free of clutter and cords Arrange furniture so there are clear pathways Clean up any spills right away Bathrooms Install grab bars in the tub or shower Apply nonskid strips or put a nonskid rubber mat in the tub or shower Sit on a bath chair to bathe Use bathmats with nonskid backing Lighting Keep a flashlight in each room Put a nightlight along the pathway between the bedroom and the bathroom Manisha Patient Education Copyright 2008 - 2010 Manisha except where otherwise noted Preventing Falls: Exercises to Improve Balance, Flexibility, Strength, and Staying Power (This education is for all patients over 65 regardless of symptoms) Certain types of exercises may help make you less likely to fall. Try the ones below. Or do other exercises that your healthcare provider suggests. Depending on your health, you may need to start slowly. Dont let that stop you. Even small amounts of exercise can help you. Be sure to talk to yourhealthcare provider before starting any exercise program. Improve Balance Many types of exercise can help improve balance. Luis Felipe chi and yoga are good examples. Heres another one to try. You can do it anytime and almost anywhere. Stand next to a counter or solid support. Push yourself up onto your tiptoes. Hold for 5 seconds. If you start to lose your balance, hold on to the counter. Rest and repeat 5 times. Work up to holding for 20 to 30 seconds, if you can. Increase Flexibility Being more flexible makes it easier for you to move around safely. Try exercises like the seated hamstring stretch. Sit in a chair and put one foot on a stool. Straighten your leg and reach with both hands down either side of your leg. Reach as far down your leg as you can. Hold for about 20 seconds. Go back to the starting position. Then repeat 5 times. Switch legs. Build Strength Resistance exercises help build strength. You can do them without equipment. Or you can use weights, elastic bands, or special machines. One such exercise is called the biceps curl. You can hold a 1 pound weight or even a can of soup. Do this exercise at least 3 times a week. Strive for everyday. Sit up straight in a chair. Keep your elbow close to your body and your wrist straight. Bend your arm, moving your hand up to your shoulder. Then slowly lower your arm. Repeat 5 times. Switch to the other arm. Build Your Staying Power Aerobic exercises make your heart and lungs stronger so you can keep moving longer. Walking and swimming are two of the best types of exercises you can do. Using a stationary bike is great, too. Find an aerobic exercise that you enjoy. Start slowly and build up. Even 5 minutes is helpful. Aimfor a goal of 30 minutes, at least 3 times a week. You dont have to do 30 minutes in one session. Break it up and walk a little throughout the day. More Helpful Tips Start easy. Slowly work up to doing more. Talk with your healthcare provider about the best exercises for you. Call senior centers or health clubs about exercise programs. If needed, have a family member watch you walk every so often to check your stability. Exercise with a friend. Choose an activity you both enjoy. Try exercises that you can do anytime, anywhere. Here are two examples. Have someone with you when you first try these: Practice walking by placing one foot right in front of the other. Stand up and sit down 10 times. Repeat this throughout the day. Manisha Patient Education Copyright 2008 - 2010 Manisha except where otherwise noted. Preventing Falls: Moving Safely Using a Cane or Walker (This education is for all patients over 65 regardless of symptoms) Keep the cane away from your feet so you dont trip. A walking aid, such as a cane or walker, can help you stay more independent and avoid falls. Remember to keep your walking aid within easy reach when youre in a chair or in bed. And learn how to use it safely so you dont injure yourself. Using a Cane If you have a stronger side, hold the cane on that side. Get your balance. Move the cane and your weaker leg forward. Support your weight on both the cane and your weaker side. Step with your stronger leg. Start again from step 1. If youre using a folding walker, be sure you know how to lock it open. Check that its locked open before each use. Using a Walker Roll the walker (or lift it, if youre using one without wheels) forward about 12 inches. Step forward with your weaker leg first. Use the walker to help keep your balance. Bring your other foot forward to the center of the walker. Start again from step 1. Helpful Tips Check with your healthcare provider about the right walking aid to use. Ask about a walker with a seat attached. Check the tips of your cane or walker to make sure they have nonskid covers. Move slowly from room to room. Dont bey. Sit down to get dressed. Use a juarez pack or backpack to keep your hands free. Get help for jobs that mean climbing, even on a stepstool. FarhanaIs That Odd Patient Education Copyright 2008 - 2010 Manisha except where otherwise noted. Treating Urinary Incontinence in Men (This education is for all patients over 65 regardless of symptoms) You can't always control the release of urine. You may leak urine. Or you may not be able to hold your urine until you can get to a bathroom. This is called urinary incontinence. The problem can be managed. Talk to your doctor about your treatment options. Taking Medications Prescription medications may help you. They may: Help the sphincter to work better. (This is the muscle that closes to keep urine from leaking out of the bladder.) Help stop the bladder from odalys too often to push urine out. Help the bladder muscles contract with more force. Help relax the sphincter muscle and allow urine to flow more freely. Making Changes to Your Routine Certain changes in your daily routine may help. These include: Avoiding caffeine and alcohol. Using timed voiding. This is following a schedule for drinking fluids and urinating. Doing Kegel exercises daily. These exercises involve tightening the muscles in your sphincter and around your bladder to help strengthen them. Your doctor can explain how to do them. Using a Catheter A catheter is a narrow tube that is inserted through the urethra into the bladder. It drains urine.A condom catheter covers the penis. It channels urine into a collection bag. It is worn most of thetime. Intermittent catheterization means inserting a catheter to drain the bladder, then removing it. This is done on a regular schedule. Having Surgery If other options don't work, surgery may be recommended. If surgery is an option, your healthcare provider can discuss it with you and explain its risks and benefits. Healing After Prostate Surgery Surgery on the prostate gland can cause incontinence. Most often, the incontinence is only for a short time. It clears up when healing is complete. Very rarely, prostate surgery can result in permanent incontinence. documented in this encounter Progress Notes * Jose Albrecht MD - 11/12/2024 3:18 PM EST Subjective: Rasheed Cotton is a 69 year old male here today for Chief Complaint Patient presents with Hospital Follow-Up Patient is here for a hospital follow up, was seen at [facility] on 11/07 for a hernia and will be having surgery. Patient reports that he is feeling pretty good today. Hospital Follow-Up Here for hospital follow up. Admitted to [facility] 11/05/24 - 11/07/24. Admitted for abd pain after food intake. History of Present Illness The patient, with a history of low ferritin levels managed with iron infusions and oral iron supplements, presents for a follow-up visit after a recent hospital discharge. He reports feeling "pretty good" since leaving the hospital and has been adhering to a soft food diet and monitoring his food intake. He describes a sensation of fullness or pressure in a specific area of his abdomen after eating a certain amount, which he interprets as a signal to stop eating. The patient was found to have a large hiatal hernia during his hospital stay, which is believed to be the cause of his symptoms. The hernia has reportedly twisted, potentially obstructing the passageof food intermittently, leading to the patient's intermittent symptoms. The patient has already scheduled a surgical consultation and a surgery date to repair the hiatal hernia. Scheduled for 12/03/24with Dr High. In addition to the hiatal hernia, the patient has been advised to lose some weight before the surgery, which he is working on. He reports already feeling better and has lost some weight since his hospital discharge. He was told during the hospitalization that the oral iron tablets may be contributing to GI symptoms. Past Medical History: Diagnosis Date 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/04/07 repeat colonoscopy in 5 years GERD (gastroesophageal reflux disease) Mixed dyslipidemia Past Surgical History: Procedure Laterality Date COLONOSCOPY W/ BIOPSY (RECTUM) 03/04/07 repeat 5 yrs adenomatous tissue COLONOSCOPY, DIAGNOSTIC (RECTUM) 01/14/2013 COLONOSCOPY FLEXIBLE PROXIMAL DIAGNOSTIC performed by Curly Hare MD at ENDOSCOPY [facility] COLONOSCOPY, DIAGNOSTIC (RECTUM) 11/25/2017 normal, repeat 5 yrs/COLONOSCOPY FLEXIBLE PROXIMAL DIAGNOSTIC performed by Curly Hare MD at ENDOSCOPY [facility] EGD, FLEXIBLE, W/BIOPSY 12/26/09 HH,acid reflux HEMORRHOIDECTOMY, INTERNAL, 2 + COLUMNS 10/13/13 EUA, hemorrhoidectomy, one quadrant 10/13/13 Dr. Loaiza at [facility] Sanitation Officer Colby marroquin PA-C REPAIR INITIAL INGUINAL HERNIA REDUCIBLE AGE 5 OR MORE REPAIR RECURRENT INGUINAL HERNIA STRESS ECHO (EXERCISE) 12/17 nl VASECTOMY Review of patient's allergies indicates: No Known Allergies Current Outpatient Medications Medication Sig Dispense Refill Rosuvastatin Calcium 5 MG Oral Tablet (Crestor) TAKE 1 TABLET BY MOUTH EVERY DAY IN THE MORNING 90 Tablet 1 Ferrous Sulfate 324 (65 Fe) MG Oral Tablet Delayed Release TAKE 1 TABLET BY MOUTH TWICE A DAY 180 Tablet 1 Pantoprazole Sodium 40 MG Oral Tablet Delayed Release (Protonix) 1 Tablet. Current Facility-Administered Medications Medication Dose Route Frequency Provider Last Rate Last Admin Albuterol Sulfate (Proventil) (2.5 MG/3ML) 0.083% inhalation solution 2.5 mg 2.5 mg Nebulizer Once PRN 2.5 mg at 04/29/24 0916 Objective: BP 129/85 | Pulse 68 | Temp 98 F (36.7 C) (Tympanic) | Resp 16 | Ht 5' 6.14" (1.68 m) | Wt 176 lb (79.8 kg) | SpO2 98% | BMI 28.29 kg/m | BSA 1.93 m GEN: NAD HEENT: Benign CHEST: CTA B CV: RRR ABD: Soft, NT/ND, No HSM, NABS EXT: No c,c,e Assessment & Plan Large Hiatal Hernia Intermittent symptoms are likely due to an axial twist of the hernia causing obstruction. Surgery is scheduled for 12/03/[address] High. Continue a soft diet, eat slowly, and drink water aftermeals. Attempt to lose additional weight before surgery to aid the procedure and recovery. Iron Supplementation Currently taking ferrous sulfate 324mg twice daily. Hemoglobin and ferritin levels are normal. No history of ulcers or bleeding.Will communicate with the bearingizer to see if reducing to once per day is acceptable. Follow-up Annual physical is scheduled for March 2025. Additional follow-up may be needed post-surgery if recommended by hospital staff. Follow Up: Return if symptoms worsen or fail to improve. 36 min with pt and chart review. Jose Albrecht MD documented in this encounter Nursing Notes * Pat Zuniga MED ASSIST - 11/12/2024 11:11 AM EST The patient has been properly identified by confirmation of name and date of . Chief Complaint Patient presents with Hospital Follow-Up Patient is here for a hospital follow up, was seen at [facility] on 11/07 for a hernia and will be having surgery. Patient reports that he is feeling pretty good today. documented in this encounter Plan of Treatment Upcoming Encounters Date Type Department Care Team (Late st Contact Info) Description 01/21/2025 2:00 PM EDT Office Visit Hematology/Oncology [facility] [address] [place] [address] Roro Jackson [facility] [address] [facility] [address] [place] [address] 03/25/2025 8:20 AM EDT [facility] [address] [phone] Jose Albrecht MD [address] [place] [id number] Scheduled Procedures Name Priority Associated Diagnoses Date/Ti [...] as of this encounter Visit Diagnoses Diagnosis Hiatal hernia- Primary Diaphragmatic hernia without mention of obstruction or gangrene Abdominal pain, epigastric Risk and functional assessment Screening for unspecified condition Hospital discharge follow-up Other follow-up examination documented in this encounter Care Teams Parachute Inspector Relationship Specialty Start Date End Date Jose Albrecht MD PCP - General 03/03/07 documented as of this encounter
[2024-12-03] MEDS: HYDROmorphone INJ 0.5 MG/0.5 ML SYR ONE (22:05)
[2024-12-03] MEDS: fentaNYL citrate PF 100 MCG/2 ML VIAL ONE (22:06)
[2024-12-03] MEDS: MoRPHine SULFATE 4 MG/ML 1 ML CARP\\VIAL IV PRN (23:53)
--- NOTE | 2024-12-04 07:40 | Surgery Progress Note ---
Date of Service December 04, 2024 Assessment & Plan (1) Large hiatal hernia: Plan: POD#1 laparoscopic hiatal hernia repair vitals are stable, pt is on room air. labs are pending this AM having some post op discomfort, better than overnight. encouraged pt to try the oxycodone for longer lasting pain control incisions c/d/i He is tolerating small amounts of clears, will continue this for now encourage OOB/ambulation and pulmonary toilet Will check up on pt later this AM with Dr. High Will provide education on diet instructions prior to d/c. will need f/u in office in 10-14 days Admission and Anticipated Discharge Date Admission Date: December 03, 2024 Subjective Patient okay this AM. Said last night he had trouble getting comfortable regarding abdominal discomfort and pains into his upper arms/shoulder/upper chest regions. No nausea/vomiting. Tolerating small amount of clears. Physical Exam Physical Exam: awake/alert, no distress Respiratory: normal respiratory effort Gastrointestinal (Abdomen): Inspection/Auscultation: + abdomen distended (mild) and + abdominal surgical incision (c/d/i with dermabond) Percussi on/Palpation: + abdomen tender (expected post op discomfort ) and abdomen soft Results & Data Vital Signs (Past 12 Hours) Vital Signs Temp Pulse Resp BP Pulse Ox O2 Del Method O2 Flow Rate 12/04/24 05:31 98.2 F 83 16 168/82 H 96 Room Air 12/04/24 01:21 97.5 F L 76 16 157/87 H 94 Nasal Cannula 2 12/03/24 21:42 98.4 F 85 16 159/87 H 96 Nasal Cannula 2 12/03/24 20:12 97.5 F L 84 16 146/93 H 94 Nasal Cannula 2 12/03/24 19:42 97.2 F L 87 18 150/96 H 94 Nasal Cannula 2 PG Care Time/CCT Total # of Minutes Spent Total Time Spent with Patient: Total time spent is greater than 50% in coordination of care (as documented) at patient's floor/unit and/or counseling patient: Coding Level of Care Code 30176 Post Operative Follow-Up Diagnoses Large hiatal hernia K44.9
[2024-12-04 08:10] LABS: Basophils # (auto) 0.02 K/uL (0.00-0.20); Basophils % (auto) 0.2 %; Hematocrit (blood only) 40.4 % (42.0-52.0); Hemoglobin 13.4 g/dl (14.0-18.0); Immature Granulocytes # (auto) 0.05 K/uL (0.01-0.20); Immature Granulocytes % (auto) 0.5 %; Lymphocytes % (auto) 9.2 %; Mean Corpuscular Hemoglobin 29.7 pg (25.0-34.0); Mean Corpuscular Hgb Conc 33.2 g/dL (32.0-36.0); Mean Corpuscular Volume 89.6 fL (80.0-100.0); Mean Platelet Volume 10.7 fL (9.4-12.4); Monocytes % (auto) 10.2 %; Neutrophils # (auto) 8.65 K/uL (1.40-6.50); Neutrophils % (auto) 79.9 %; Platelet Count 228 K/uL (130-400); RDW Coefficient of Variation 12.3 % (11.5-14.5); RDW Standard Deviation 40.4 fL (36.4-46.3); Red Blood Count 4.51 M/uL (4.70-6.10); White Blood Count 10.82 K/ul (4.8-10.8)
[2024-12-04 08:24] LABS: BUN Creatinine Ratio 8.7 (10-20); Calcium 8.8 mg/dl (8.6-10.3); Creatinine Clr Calc Pharmacy 61.1 ml/min; Potassium 4.8 mmol/L (3.5-5.1)
[2024-12-04] MEDS: PANTOprazole 40 MG TAB PO SCH (08:39)
[2024-12-04] MEDS: oxyCODONE HCL IR 5 MG TAB (IMMEDIATE RELEASE) PO PRN (20:32)
--- NOTE | 2024-12-05 04:49 | Surgery Progress Note ---
Date of Service December 05, 2024 Assessment & Plan (1) Large hiatal hernia: Plan: Status post laparoscopic hiatal hernia repair on 12/03/2024 (postop day #2) Continue to provide analgesics and antiemetics as needed Maintain the patient on full liquid diet for the present time (he will likely be discharged home on liquid diet due to his hiatal hernia repair) Mobilize as able Consideration will be given to discharging patient if his pain control is adequate If patient does remain hospitalized consideration could be given to adding DVT prophylaxis Admission and Anticipated Discharge Date Admission Date: December 03, 2024 Supervising Physician Co-Signing Physician Notes Patient seen and examined, agree with above. POD #2 laparoscopic hiatal hernia repair by Dr. High. Tolerating full liquids, passing gas. Pain improved from yesterday. On exam some ecchymosis around umbilical incision, otherwise no infection. Plan to discharge to home, follow-up with Dr. High as scheduled. Wound care instructions, activity restrictions, diet restrictions, and return precautions given. Subjective Patient is currently resting comfortably in bed. He notes his pain is well- controlled at the present time. He is tolerating liquids without exacerbating any abdominal pain or without nausea or vomiting. He says he has not had BM or flatus since surgery. Physical Exam Gastrointestinal (Abdomen): Abdomen is soft with minimal distention. All surgical incisions are clean, dry, and intact. There is minimal pain with palpation at the time of my exam Results & Data Vital Signs (Past 12 Hours) Vital Signs Temp Pulse Resp BP Pulse Ox O2 Del Method 12/04/24 19:46 37.2 C 88 18 166/91 H 91 Room Air 12/04/24 17:37 36.6 C 108 H 20 160/76 H 90 Room Air PG Care Time/CCT Total # of Minutes Spent Total Time Spent with Patient: Total time spent is greater than 50% in coordination of care (as documented) at patient's floor/unit and/or counseling patient: Coding Level of Care Code 58049 Post Operative Follow-Up Diagnoses Large hiatal hernia K44.9
[2024-12-05 07:58] VITALS: BP 166/89; PULSE 80; RESP 20; TEMP 97.9; O2SAT 92
[2024-12-05] MEDS: oxyCODONE HCL IR 5 MG TAB (IMMEDIATE RELEASE) PO PRN (08:48)
--- NOTE | 2024-12-08 13:12 | Discharge Summary ---
Date of Service December 05, 2024 Principal Diagnosis laparoscopic hiatal hernia repair Discharge Exam awake/alert, no distress Respiratory normal respiratory effort Gastrointestinal (Abdomen) Inspection/Auscultation: + abdomen distended (mild) and + abdominal surgical incision (c/d/i with dermabond) Percussion/Palpation: + abdomen tender (expected post op discomfort ) and abdomen soft Discharge Data Allergies Allergy/AdvReac Type Severity Reaction Status Date / Time No Known Drug Allergies Allergy Unknown NKDA Verified 12/03/24 11:44 Procedures Performed Operation Date: 12/03/24 13:05 Actual Procedures p Laparoscopic Hiatal Hernia Repair(Not Applicable) - Nnamdi High, DO Hospital Course (1) Large hiatal hernia: This is a 69yM who presented to the [facility] on 3 for an elective laparoscopic hiatal hernia repair with Dr. High. The patient tolerated the procedure well, see op note for full details. The patient recovered in the PACU and was transferred to the med/surg unit in stable condition. Pain was managed with prn IV and PO meds and he was alloted a clear liquid diet. Anti-emetics ordered as needed as well as he was continued on his PPI. Post op the patient was able to void without issues. On POD#1 patient's diet was advanced to fulls where he was to remain until follow up with us in the office. Pain and nausea were managed as needed. Ambulation and pulmonary toilet were encouraged. Incisions were clean, dry, and intact with skin glue without evidence of infection. On POD#2 the patient was deemed stable for discharge to home. Dispo instructions were reviewed and patient demonstrated understanding. He was asked to follow up in the office in 7-10 days time. Total Time Total Time Spent Total Time Spent (In Minutes): 15 Discharge Plan Discharge Items Patient Disposition: Home - Self-Care Reason For Visit: Intractable Abdominal Pain, Large Hiatal Hernia Discharge Diagnosis: laparoscopic hiatal hernia repair Condition on Discharge: Good Activity: Per Instructions section Lifting: No more than 10 pounds Bathing Comment: may shower; no soaking in tubs/pools x 2 weeks Exercise/Sports: Wait until after follow-up appointment Driving/Machine Use: no driving while taking narcotics for pain Non-emergency contact: Surgeon Call non-emergency contact if: you have any medication questions, your symptoms worsen, your pain is not controlled, your pain is worsening, you have a fever, your temperature is above 101.5, your wound has increased redness, your wound has increased drainage and your wound pain has increased Follow-up/Referrals: Nnamdi High, [Surgeon] - (please call to schedule follow up in the office within 7-10 days) Jose Albrecht MD [Primary Care Provider] - Diet: Other - See Diet Comment Addtl Attending Provider Instructions: SPECIAL CARE INSTRUCTIONS: * You have skin glue over your incisions called dermabond. you may shower with this on. It will tend to dissolve and fall off within a couple weeks. Do not pick at the skin glue * You may shower 12/04. NO soaking in pools or baths for 2 weeks * No lifting greater than 10lbs. No strenuous exercise until cleared by surgeon. Light walking is accepted. * No driving while taking narcotic pain medication; wait at least 3 days * No drinking alcohol while taking narcotic pain medication * May use Ibuprofen/Tylenol over the counter for pain as tolerated. Do not exceed 3grams of Tylenol per 24 hours * Expect some swelling and bruising. * Diet- follow the special diet as outlined by dr. high upon discharge. A full liquid diet, things that are soft/liquidy that you can scoop a spoon through such as protein shakes, yogurt, pudding, icecream, thick soup broths, etc. Call your doctor if: * Temperature above 101 degrees, nausea/vomiting, fever/chills * Pain not relieved by pain medicine ordered * There is increased drainage or redness from any incision * You have any unanswered questions or concerns [phone]. FOLLOW UP VISIT: If not already scheduled, please call the office for a follow-up visit. Office Pending Studies at Discharge: No Stand-Alone Forms: My [facility] Medications and DC Order Prescriptions: New oxycodone 5 mg tablet 5 - 10 mg PO .[id number] PRN (Reason: pain, for initial therapy, max 6 tabs per day) Qty: 15 0RF ondansetron 4 mg tablet,disintegrating 4 mg PO Q8H PRN (Reason: nausea and vomiting) 7 Days Qty: 21 0RF pantoprazole [Protonix] 40 mg tablet,delayed release (DR/EC) 40 mg PO QAM 28 Days Qty: 30 0RF Continued rosuvastatin 5 mg tablet 5 mg PO QAM pantoprazole 40 mg tablet,delayed release (DR/EC) 40 mg PO QAM ferrous sulfate 324 mg (65 mg iron) tablet,delayed release (DR/EC) 324 mg PO QAM Discharge Orders: Discharge Order (Routine); Ordered 12/05/24 Ordered By: Jaleel Dyer/Other Patient Handouts: Clear Liquid Diet Dc, Full Liquid Diet Dc Admission Data Admit Date/Time: 12/03/24 17:29 Attending Provider: Nnamdi High Admit Provider: Nnamdi High Primary Care Provider: Jose Albrecht Other Interventions: Discharge Summary Assessment (RN) Last Done: 12/05/24 11:30 Coding Level of Care Code 09640 IN/OBS DISCH 30 MIN/LESS Diagnoses Large hiatal hernia K44.9
== END 2024-12-05 12:55 | disposition home or self-care (01) ==
LOC: 3N 11:21 → ASU 11:21